=== PATIENT | male | born 1960 | race Caucasian/White ===

== ENCOUNTER 2020-12-30 16:36 | Inpatient (IN) | payer OTHER ==
[~2020-12-30] VITALS: Ht 175.3 cm; Wt 70.8 kg
[2020-12-30 22:00] VITALS: BP 151/94
[2020-12-30] MEDS ORDERED: VITMTA PO (22:30)
[2020-12-30] MEDS ORDERED: ONDANSETRON 4MG/2ML VIAL IV PRN (22:30)
[2020-12-30] MEDS ORDERED: HOME MED LIST COMPLETE! XX SCH (22:30)
[2020-12-30] MEDS ORDERED: ACETAMINOPHEN TAB 650MG DOSE (2X325MG) PO PRN (22:30)
[2020-12-30] MEDS ORDERED: MORPHINE 2 MG/ML 1ML VIAL (J2270) IV PRN (22:30)
[2020-12-30] MEDS: LR 1,000 ML IV SCH (23:33)
[2020-12-31] MEDS ORDERED: MORPHINE 2 MG/ML 1ML VIAL (J2270) IV ONE (00:15)
--- NOTE | 2020-12-31 00:41 | HPEPDOC ---
General Date of Admission Dec 30, 2020 at 21:22 Date of Service: Dec 30, 2020 Chief Complaint The patient is a 60-year-old male admitted with a reason for visit of Perforated Sigmoid Colon. Source: Patient History of Present Illness Osvaldo Bello is a 60yoM with no reported significant medical hx, other than tobacco use, who presents with abdominal pain x 1 day. Patient reports that he has been at baseline until today around noon when he experienced sudden severe abdominal pain that "knocked him down" and he became diaphoretic and pale. He went to [facility] and underwent CT abdomen pelvis and found to have diverticulitis with concerns for fluid collection and perforation. He arrives for higher level of care for surgical recommendations. Patient reports that he did not know he had diverticulosis. He denies any abdominal pain in past. In hindsight, he does endorse some diarrhea for the past month. Pt denies randle, sinus congestion, sore throat, productive cough, sob, palpitations, chest pain, n/v, weakness, sensory changes or syncope. He describes pain as sharp, shooting and severe. He reports improvement with morphine and fentanyl. During exam he reports pain 8 out of 10 and worse on left lower quadrant. He does endorse abdominal tenderness worse with palpation. He reports he has not attempted to eat anything since the pain started. Last BM midday loose. Of note, CT abdomen pelvis with 4 cm fluid collection of the mesentery; surgical recommendations for antibiotics and IR draining. Patient without leukocytosis or lactic acidosis from chart review prior to admission. He is afebrile normotensive. Follow-up labs to be drawn. Patient will be admitted for further evaluation management of presenting concerns. Home Medications Scheduled Multivitamins (Thera M Plus Tablet) 1 Each Tablet, 1 TAB PO QHS, (Reported) Allergies Coded Allergies: No Known Allergies (Verified Allergy, Unknown, 12/30/20) Past Medical History Medical History 1 pack/day smoker Surgical History Reattach tendon right hand Family History Significant Family History: Cancer, Heart disease Grandmotherheart disease, unclepancreatitis, grandfatherpancreatitis, mother- cancer Social History * Smoker: current smoker (1 pack/day) Alcohol: other (Endorses 1-2 mixed drinks nightly vodka drinks) Drugs: denies Recent Travel/Sick Contacts: Denies: Recent travel, Recent sick contacts Psychosocial History: No pertinent psych hx A-FIB/CHADSVASC A-FIB History Current/History of A-Fib/PAF?: No Current PO Anticoag Therapy: No Review of Systems Constitutional: Reports: Other (Diaphoresis); Denies: Chills, Fever, Night Sweats Eyes: Denies: Pain, Vision change ENT: Denies: Head Aches, Ear Pain, Dysphagia Skin: Denies: Rash, Lesions, Breakdown Pulmonary: Denies: Dyspnea, Cough Cardiovascular: Denies: Chest Pain, Palpitations, Orthopnea, Paroxysmal Noc. Dyspnea, Lt Headedness Gastrointestinal: Reports: Abdominal Pain, Diarrhea; Denies: Nausea, Vomiting Genitourinary: Denies: Dysuria, Frequency, Incontinence, Retention Hematologic: Denies: Bruising, Bleeding Excessively Musculoskeletal: Denies: Neck Pain, Back Pain, Joint Pain, Muscle Pain, Spasms Neurological: Denies: Weakness, Numbness, Change in speech, Confusion Psych: Reports: Mood Normal; Denies: Depression, Memory Issues Physical Examination General Exam: Positive: Alert, Cooperative, No Acute Distress Eye Exam: Positive: PERRLA, Conjunctiva & lids normal, EOMI; Negative: Sclera icteric ENT Exam: Positive: Atraumatic, Mucous membr. moist/pink, Pharynx Normal Neck Exam: Positive: Supple; Negative: JVD, thyromegaly Chest Exam: Positive: Clear to auscultation, Normal air movement Heart Exam: Positive: Rate Normal, Regular Rhythm, Normal S1, Normal S2; Negative: Murmurs, Rubs Telemetry: Positive: No significant arrhythmia Abdomen Exam: Positive: BS Hyperactive, Soft, Tenderness (Left lower quadrant tenderness greater than generalized tenderness); Negative: Hepatospenomegaly Extremity Exam: Positive: Normal pulses; Negative: Clubbing, Cyanosis, Edema Skin Exam: Positive: Nl turgor and temperature, Other skin issue (Franco appearance face and chest); Negative: Breakdown, Lesion Neuro Exam: Positive: Normal Gait, Normal Speech, Cranial Nerves 3-12 NL, Reflexes 2+ Psych Exam: Positive: Mental status NL, Mood NL, Oriented x 3 Vital Signs 151/94, respiratory rate 16, heart rate 90, 98.5 Fahrenheit, 94% RA RAD Interpretation STUDY: CT abdomen pelvis Rad Actions: Report Reviewed Assessment/Plan 1. Diverticulitis with abscess: -Monitor for worsening signs symptoms of infection -Empiric coverage with meropenem -IV hydration with consideration of fluid balance, LR at 75 -N.p.o. for IR drainage in a.m. -Symptom management/supportive care with antiemetics and analgesics. -A.m. lab -Appreciate surgical recommendations *Of note, patient is a smoker and noted to have SPO2 92% during assessment without any URI complaints and clear to auscultation, [id number]; could be related to pain medications versus probe. Monitor and consider need for oxygen pending patient response. 2. EtOH use: Patient endorsed nightly EtOH. Monitor for signs symptoms of withdrawal. Consider scheduling pending patient response/need. With the analgesic use with above will begin with as needed Ativan with parameters to monitor patient response. 3. Tobacco use: Encourage cessation. Patient declined nicotine patch. DVT prophylaxis: Christine score 1, SCDs and early ambulation encouraged CODE STATUS: Full code Disposition planning: Home pending clinical improvement. Anticipate at least 2 midnight stay. Plan / VTE VTE Prophylaxis Ordered?: Yes LAMAR BELTRÁN NP Dec 30, 2020 22:36
[2020-12-31] MEDS ORDERED: LORazepam 2 MG/ML VIAL IV PRN (01:00)
[2020-12-31] MEDS: MEROPENEM INJ 1 GM in IV 1 EA IV SCH ×3 (01:41→17:42)
[2020-12-31 02:00] VITALS: BP 148/94
[2020-12-31 04:57] LABS: MEAN CORPUSCULAR HEMOGLOBIN 33.1 pg (27.0-33.0); MEAN CORPUSCULAR HGB CONC 33.3 g/dl (32.0-36.5); MEAN CORPUSCULAR VOLUME 99.3 fl (80.0-96.0); PLATELET COUNT, AUTOMATED 113 10^3/uL (150-450); RED BLOOD COUNT 4.53 10^6/uL (4.30-6.10); WHITE BLOOD COUNT 6.6 10^3/uL (4.0-10.0)
[2020-12-31 05:18] LABS: BLOOD UREA NITROGEN 13 MG/DL (7-18); CALCIUM LEVEL 9.1 MG/DL (8.5-10.1); CARBON DIOXIDE LEVEL 28 MEQ/L (21-32); CHLORIDE LEVEL 102 MEQ/L (98-107); CREATININE FOR GFR 0.79 MG/DL (0.70-1.30); GLOMERULAR FILTRATION RATE > 60.0 (>56); GLUCOSE, FASTING 125 MG/DL (70-100); POTASSIUM SERUM 4.4 MEQ/L (3.5-5.1); SODIUM LEVEL 136 MEQ/L (136-145)
[2020-12-31 05:26] LABS: LYMPHOCYTES 12 % (16-44); METAMYELOCYTES 7 % (0-0); MONOCYTES 3 % (0-5); NEUTROPHILS 74 % (28-66); PLATELET ESTIMATE DECREASED (NORMAL)
[2020-12-31 06:00] VITALS: BP 160/98
--- NOTE | 2020-12-31 09:05 | CR ---
CONSULTATION DATE: 12/30/2020 REASON FOR CONSULTATION: Perforated diverticulitis. HISTORY OF PRESENT ILLNESS: The patient is a 60-year-old male who presented to [facility] with a sudden onset of left lower quadrant abdominal pain that happened around noon. He went to [facility], had a CT scan, found to have diverticulitis with perforation and fluid collection in the mesentery. He was transferred here for a surgical consult. He has no known history of diverticulosis. He has never had any problems like this in the past. No problems with his colon or prior colonoscopy. Denies any significant medical problems. No prior surgery to the abdomen. No changes in diet or medications recently. No complaints other than the pain. PAST MEDICAL HISTORY: Tobacco abuse. PAST SURGICAL HISTORY: Right hand surgery. ALLERGIES: None. HOME MEDICATIONS: Multivitamins. SOCIAL HISTORY: He smokes a pack a day. Drinks daily. Denies drug abuse. FAMILY HISTORY: Noncontributory. REVIEW OF SYSTEMS: Pertinent positives and negatives as stated in the HPI. PHYSICAL EXAMINATION: General: Alert and oriented x3, in no acute distress. Vitals: Temperature 98.5, pulse 90, respirations 16, blood pressure 151/94, pulse oximetry 94% on room air. HEENT: Pupils equally round and reactive to light and accommodation. Heart: S1 and S2, regular rate and rhythm. Lungs are clear to auscultation bilaterally. Abdomen is soft, tender to palpation in the left lower quadrant into the suprapubic area. No rebound or guarding. No rigidity. Extremities: No cyanosis, clubbing or edema. LABORATORY DATA: Labs were all completed at [facility]. They were all stated to be within normal limits. Labs at our facility have not been obtained yet. IMAGING: Imaging from [facility] identified small pockets of air and fluid collection in the mesentery of the sigmoid colon with wall thickening in the area suggestive of a likely contained perforation of diverticulitis. ASSESSMENT AND PLAN: Patient is a 60-year-old male with complicated diverticulitis with mesenteric abscess. He has a non-peritoneal abdomen at this time. Labs and vitals are stable. Recommendation is to continue with conservative management. He is IV fluids and IV antibiotics, keep him NPO for now. Plan for IR drainage in the morning. Once the drain is in place we will monitor his output, start him back on a diet and likely discharge home over the next 48 hours with the drain in place and he will follow-up in the office to get that removed next week and then will plan for an outpatient colonoscopy in about six weeks.
--- NOTE | 2020-12-31 09:11 | IPNPDOC ---
Text Note Date of Service The patient was seen on 12/31/20. NOTE General surgery. Dr. Freed The patient is a 60-year-old male admitted with diverticulitis with abscess. This morning, the patient states his pain has resolved. Denies nausea or vomiting. Plan for CT-guided percutaneous drain placement today. Afebrile. Heart rate 84, respiratory rate 18, blood pressure 160/98, 91% room air. Awake and alert, resting comfortably in bed, no acute distress. S1-S2 regular rate rhythm Respirations are nonlabored, no wheezing Abdomen is soft, nondistended. WBC 6.6, hemoglobin 15.0. Lactic acid 1.3 Assessment/plan Diverticulitis with abscess. The patient is reviewed and examined as per Dr. Freed this morning. Continue with IV fluids and IV antibiotics as per hospitalist. Plan for CT-guided percutaneous drain placement as per interventional radiology today. The patient verbalizes understanding and agreement. Continue to monitor VS,Fishbone, I+O VS, Fishbone, I+O Laboratory Tests 12/31/20 04:25 Vital Signs Date Time Temp Pulse Resp B/P (MAP) Pulse Ox O2 Delivery O2 Flow Rate FiO2 12/31/20 06:00 84 160/98 12/31/20 06:00 98.9 18 91 Room Air I&O- Last 24 Hours up to 6 AM 12/31/20 05:59 Intake Total 70 ml Output Total 0 ml Balance 70 ml Matilde Trivedi Dec 31, 2020 09:11
[2020-12-31] MEDS: MORPHINE 2 MG/ML 1ML VIAL (J2270) IV PRN ×3 (09:29→20:34)
[2020-12-31 10:00] VITALS: BP 150/90
--- NOTE | 2020-12-31 10:47 | IPN ---
PROGRESS NOTE DATE: 12/31/2020 SUBJECTIVE: Patient denies any fever overnight, complains of chills. Abdominal pain is improved today. Patient had 2 episodes of non-projectile, non-blood emesis this morning. OBJECTIVE: Vital signs: Temperature 98.9, pulse 84, respiratory rate 18, blood pressure 144/92, 91% on room air. General: Awake, alert, oriented to person, place and time, answering questions appropriately. HEENT: Dry mucous membranes. Neck: No JVD, thyromegaly, cervical lymphadenopathy or stridor. Lungs: Clear to auscultation, no wheezes, rhonchi or rales. Heart: S1 and S2 sinus rhythm. Abdomen: Soft, slightly tender in left lower quadrant, no guarding or rebound. Positive bowel sounds. Extremities: No cyanosis, clubbing or pitting edema. LABORATORY DATA: 12/31/2020: White count 6.6, hemoglobin 15, hematocrit 45, platelet count 113. Sodium 136, potassium 4.4, chloride 102, bicarbonate 28, BUN 13, creatinine 0.79, glucose 125. Lactic acid 1.3. ASSESSMENT: This is a 60-year-old male seen at [facility] with complaints of abdominal pain for 1 day, feeling like it "knocked him down" with diaphoresis and pallor. Patient was found to have a perforated sigmoid colon with diverticulitis, concerns for fluid collection and was transferred to [facility] for surgical services. Patient received intravenous fluids and intravenous Zosyn at [facility], was transferred and was started on meropenem 1 gram I.V. q8h and lactated Ringer's, hypoglycemic protocol. IMPRESSIONS/PLAN: Perforated diverticulitis: Doing well on intravenous meropenem, afebrile with no abdominal pain. He is n.p.o. for IR drain. Once the drain is placed output will be monitored for 24 hours then patient may be resumed back on an oral diet and discharged home over the next 48 hours. He is on hypoglycemic protocol and I.V. fluids.
[2020-12-31] MEDS ORDERED: FLUBLOK(EGG FREE)(QUAD)INFLUENZA VACC 0.5ML SYRINGE 18YRS & OLDER IM ONE (11:00)
[2020-12-31 14:00] VITALS: BP 145/72
[2020-12-31] MEDS: LR 1,000 ML IV SCH (16:08)
[2020-12-31] MEDS: NICOTINE POLACRILEX 2 MG GUM PO PRN (17:57)
[2020-12-31 18:00] VITALS: BP 136/65
[2020-12-31] MEDS: MULTIVITAMINS/MINERALS THERAP 1 TAB PO SCH (20:34)
[2020-12-31 22:00] VITALS: BP 145/89
[2021-01-01] VITALS (7 sets, daily range): BP systolic 141–160; BP diastolic 88–100
[2021-01-01] MEDS: LR 1,000 ML IV SCH (02:54)
[2021-01-01] MEDS: MEROPENEM INJ 1 GM in IV 1 EA IV SCH ×3 (02:54→17:36)
[2021-01-01 06:08] LABS: HEMATOCRIT 40.1 % (42.0-52.0); HEMOGLOBIN 13.5 g/dl (13.5-17.5); MEAN CORPUSCULAR HEMOGLOBIN 32.8 pg (27.0-33.0); MEAN CORPUSCULAR HGB CONC 33.7 g/dl (32.0-36.5); MEAN CORPUSCULAR VOLUME 97.3 fl (80.0-96.0); PLATELET COUNT, AUTOMATED 109 10^3/uL (150-450); RED BLOOD COUNT 4.12 10^6/uL (4.30-6.10); WHITE BLOOD COUNT 5.4 10^3/uL (4.0-10.0)
[2021-01-01 06:30] LABS: BLOOD UREA NITROGEN 11 MG/DL (7-18); CALCIUM LEVEL 9.2 MG/DL (8.5-10.1); CARBON DIOXIDE LEVEL 28 MEQ/L (21-32); CHLORIDE LEVEL 96 MEQ/L (98-107); CREATININE FOR GFR 0.62 MG/DL (0.70-1.30); GLOMERULAR FILTRATION RATE > 60.0 (>56); GLUCOSE, FASTING 109 MG/DL (70-100); SODIUM LEVEL 131 MEQ/L (136-145)
[2021-01-01 08:10] LABS: ATYPICAL LYMPH 9 % (0-5); LYMPHOCYTES 9 % (16-44); METAMYELOCYTES 1 % (0-0); MONOCYTES 4 % (0-5); NEUTROPHILS 38 % (28-66); PLATELET CLUMPS SMALL AMT; PLATELET ESTIMATE DECREASED (NORMAL)
[2021-01-01] MEDS: NICOTINE POLACRILEX 2 MG GUM PO PRN ×2 (08:37→21:13)
[2021-01-01] MEDS: NICOTINE 14 MG/24 HR TRANSDERMAL TD SCH (08:38)
--- NOTE | 2021-01-01 10:41 | IPN ---
PROGRESS NOTE DATE: 01/01/2021 SUBJECTIVE: Patient denies any fever or chills, abdominal pain. He is tolerating his liquid diet. Patient said that he had 2 episodes of nausea and vomiting yesterday, none this morning. He is chewing gum, passing gas this morning and has no pain. OBJECTIVE: Vital signs: Temperature 98.4, pulse 80, respiratory rate 19, blood pressure 146/88, 98% on room air. General: Awake, alert, oriented to person, place and time, no cyanosis or distress. Lungs: Clear to auscultation, no wheezes, rhonchi or rales. Heart: S1 and S2 sinus rhythm. Abdomen: Doughy with slight distention, no guarding or rebound. Left lower quadrant tenderness on deep palpation. No CVA tenderness. Extremities: No cyanosis, clubbing or pitting edema. LABORATORY DATA/IMAGING STUDIES: Have been reviewed. ASSESSMENT: 60-year-old male transferred from [facility], admitted on 12/30/2020 with complaints of abdominal pain and found to have a perforated diverticulitis, on I.V. antibiotics. IMPRESSIONS/PLAN: 1. Complicated diverticulitis with perforation and abscess: Currently on I.V. meropenem. Per surgery continue with I.V. antibiotics for now, intravenous fluids, advance on a liquid diet. Interventional radiology to put a drain in. Once the drain is placed continue to monitor and advanced diet over the next 48 hours. Follow in the office as an outpatient for a colonoscopy. Patient has been afebrile with normal white count. Defer to surgery today to determine if patient's diet can be advanced. 2. Nicotine abuse: Currently on nicotine replacement. Tobacco cessation counseling has been provided. AKIN
[2021-01-01] MEDS ORDERED: SENOKOT S TAB PO PRN (11:15)
[2021-01-01] MEDS ORDERED: MOM 30ML SUSPENSION UDC PO PRN (11:15)
--- NOTE | 2021-01-01 12:45 | IPNPDOC ---
Text Note Date of Service The patient was seen on 01/01/21. NOTE Patient admitted yesterday for acute perforated diverticulitis presumably within the abscess. His CT scan was done at [facility] where he presented evening and subsequently transferred to us. He presumably was scheduled for percutaneous drainage of the fluid collection but some of this has been canceled. Not clear whether further review of the CAT scan that was done at [facility] did not show any distinct fluid collection. Patient reports he is feeling markedly better than when his pain started afternoon reporting a pain barely there. He denies any nausea or vomiting. He reports he is passing flatus and has had loose stools. Exam Looks quite comfortable Abdomen still is mildly distended, slightly rounded mildly tympanic. He has no prior surgical incisions. He is very minimally tender only on deep palpation over the left lower quadrant area without any rebound or guarding. Impression and plan Acute diverticulitis with localized perforation, questionable abscess He has been started on clear liquids. I will continue this for today. I will have him repeat a CT abdomen pelvis in the morning which could guide us in whether he needs percutaneous drainage or other adjuncts. Given his clinical exam, most likely will not need any emergent surgery. He has no prior colonoscopy so I told him that he will need interval colonoscopy. VS,Fishbone, I+O VS, Fishbone, I+O Laboratory Tests 01/01/21 05:31 Vital Signs Date Time Temp Pulse Resp B/P (MAP) Pulse Ox O2 Delivery O2 Flow Rate FiO2 01/01/21 10:00 97.6 101 20 147/90 (109) 95 Room Air I&O- Last 24 Hours up to 6 AM 01/01/21 05:59 Intake Total 1982.5 ml Output Total 0 ml Balance 1982.5 ml RHINA LEDESMA MD Jan 01, 2021 12:45
[2021-01-01] MEDS ORDERED: MORPHINE 30 MG TAB **MSIR PO ONE (14:40)
[2021-01-01] MEDS ORDERED: atenoloL 25 MG TAB PO ONE (14:40)
[2021-01-01] MEDS: MORPHINE 2 MG/ML 1ML VIAL (J2270) IV PRN (17:56)
[2021-01-01] MEDS: MULTIVITAMINS/MINERALS THERAP 1 TAB PO SCH (20:19)
[2021-01-01] MEDS ORDERED: LORazepam 2 MG TAB PO PRN (21:10)
--- NOTE | 2021-01-01 21:11 | IPNPDOC ---
Text Note Date of Service Significant event NOTE Notified patient with affect change. He is somewhat delirious in conversation but can be redirected or reoriented. No focal deficits. He is mildly tachycardic and hypertensive. He is a reported 1-2 night vodka EtOH use prior to admission. Additionally, patient did not sleep well the night before. In the setting of fatigue, infection, possible developing hospital delirium and pain medicine use as possible developing withdrawal symptoms- all could be affecting his perception/ behavior. Will place on CIWA protocol and continue to monitor. VS,Fishbone, I+O VS, Fishbone, I+O Laboratory Tests 01/01/21 05:31 Vital Signs Date Time Temp Pulse Resp B/P (MAP) Pulse Ox O2 Delivery O2 Flow Rate FiO2 01/01/21 18:06 20 01/01/21 18:00 100.1 101 160/90 (113) 93 Room Air I&O- Last 24 Hours up to 6 AM 01/01/21 06:00 Intake Total 1570 ml Output Total 0 ml Balance 1570 ml LAMAR BELTRÁN NP Jan 01, 2021 21:11
[2021-01-01] MEDS ORDERED: RAMELTEON 8 MG TAB (ROZEREM) PO PRN (21:15)
[2021-01-01] MEDS: THIAMINE 100 MG TAB PO SCH (21:29)
[2021-01-01] MEDS ORDERED: LORazepam 2 MG/ML VIAL IV STA (22:00)
[2021-01-01] MEDS ORDERED: LORazepam 0.5 MG TAB PO ONE (22:55)
[2021-01-02] VITALS (8 sets, daily range): BP systolic 128–148; BP diastolic 68–93
[2021-01-02] MEDS: MEROPENEM INJ 1 GM in IV 1 EA IV SCH ×3 (02:18→18:14)
[2021-01-02] MEDS ORDERED: ISOVUE-370 76% 100ML VIAL As Ordered ONE (05:50)
[2021-01-02] MEDS: GASTROGRAFIN SOLUTION 30ML PO SCH ×2 (06:00→06:30)
[2021-01-02 06:53] LABS: HEMATOCRIT 39.4 % (42.0-52.0); HEMOGLOBIN 13.6 g/dl (13.5-17.5); MEAN CORPUSCULAR HEMOGLOBIN 33.3 pg (27.0-33.0); MEAN CORPUSCULAR HGB CONC 34.5 g/dl (32.0-36.5); MEAN CORPUSCULAR VOLUME 96.3 fl (80.0-96.0); PLATELET COUNT, AUTOMATED 142 10^3/uL (150-450); RED BLOOD COUNT 4.09 10^6/uL (4.30-6.10); WHITE BLOOD COUNT 7.5 10^3/uL (4.0-10.0)
[2021-01-02 07:27] LABS: BLOOD UREA NITROGEN 13 MG/DL (7-18); CALCIUM LEVEL 9.2 MG/DL (8.5-10.1); CARBON DIOXIDE LEVEL 30 MEQ/L (21-32); CHLORIDE LEVEL 93 MEQ/L (98-107); CREATININE FOR GFR 0.68 MG/DL (0.70-1.30); GLOMERULAR FILTRATION RATE > 60.0 (>56); GLUCOSE, FASTING 110 MG/DL (70-100); POTASSIUM SERUM 4.1 MEQ/L (3.5-5.1); SODIUM LEVEL 130 MEQ/L (136-145)
[2021-01-02] MEDS: NICOTINE 14 MG/24 HR TRANSDERMAL TD SCH (07:51)
[2021-01-02] MEDS: NICOTINE POLACRILEX 2 MG GUM PO PRN ×3 (07:51→22:26)
[2021-01-02] MEDS: THIAMINE 100 MG TAB PO SCH (08:01)
--- NOTE | 2021-01-02 08:03 | REPVR ---
PROCEDURE INFORMATION: Exam: CT Abdomen And Pelvis With Contrast Exam date and time: 01/02/2021 7:42 AM Age: 60 years old Clinical indication: Condition or disease; Other: Diverticulitar abscess w perforated sigmoid colon TECHNIQUE: Imaging protocol: Computed tomography of the abdomen and pelvis with contrast. Radiation optimization: All CT scans at this facility use at least one of these dose optimization techniques: automated exposure control; mA and/or kV adjustment per patient size (includes targeted exams where dose is matched to clinical indication); or iterative reconstruction. Contrast material: ISOVUE 370; Contrast volume: 100 ml; Contrast route: INTRAVENOUS (IV); COMPARISON: CT ABD/PELVIS W/O CONTRAST - OUTSIDE PRIOR 12/30/2020 3:46 PM FINDINGS: Lungs: Emphysema within the imaged lower lungs. Bilateral atelectasis. Trachea and bronchial secretions. Liver: Hepatic steatosis with multiple areas of geographic steatosis versus small cysts. Gallbladder and bile ducts: No calcified stones. No ductal dilation. Pancreas: No ductal dilation. Spleen: No splenomegaly. Adrenal glands: No mass. Kidneys and ureters: Several simple renal cysts are present. Stomach and bowel: Proximal small bowel obstruction with transition point in the right mid abdomen (axial image 97). Small bowel measures up to 4.7 cm proximally, with multiple fluid levels. Persistent features of complicated sigmoid diverticulitis and sigmoid colitis with regional perforation and an abscess extending superiorly along the retroperitoneum measuring up to 6.3 x 2.7 cm, previously 4.3 x 1.7 cm. Focal thickening of the bowel wall at the transverse colon (image 65) is present. Fluid and gas is present within the colon. Appendix: No evidence of appendicitis. Intraperitoneal space: Small volume free intraperitoneal fluid. Vasculature: Mild aortic and branch vessel atherosclerosis. Lymph nodes: No enlarged lymph nodes. Urinary bladder: Unremarkable as visualized. Reproductive: Unremarkable as visualized. Bones/joints: No acute fracture. Soft tissues: Increased retroperitoneal soft tissue gas. IMPRESSION: 1. Persistent features of sigmoid diverticulitis complicated by perforation and retroperitoneal abscess extending superiorly, with increased size of the abscess and increased retroperitoneal gas extending into the left perirenal space. 2. Development of a proximal small bowel obstruction with transition point in the right mid abdomen. 3. Small volume free intraperitoneal fluid, likely reactive or inflammatory. 4. Focal thickening of bowel wall of the transverse colon, likely peristalsis although would correlate with age-appropriate colon cancer screening as indicated to exclude an underlying lesion. COMMENTS: Consistent with the [employer]'s Incidental Findings Committee white paper (J Am Bel Radiol 2018): Any incidental renal lesion less than 1 cm or classified as too small to characterize, or any incidental cystic renal lesion characterized as simple-appearing, is likely benign. No follow-up imaging is recommended for these lesions per consensus recommendations based on imaging criteria. Electronically signed by: Milton Aguilar On 01/02/2021 08:02:28 AM
[2021-01-02] MEDS ORDERED: LORazepam 2 MG/ML VIAL IV PRN (08:10)
[2021-01-02] MEDS ORDERED: D5W/0.45% SODIUM CHLORIDE 1,000 ML IV SCH (08:10)
[2021-01-02 08:13] LABS: ATYPICAL LYMPH 4 % (0-5); LYMPHOCYTES 14 % (16-44); MONOCYTES 13 % (0-5); NEUTROPHILS 40 % (28-66); PLATELET ESTIMATE DECREASED (NORMAL)
[2021-01-02 08:52] LABS: ERYTHROCYTE SEDIMENTATION RATE 63 mm/hr (0-20)
[2021-01-02] MEDS ORDERED: cloNIDine HCL 0.1 MG/24 HR PATCH TOP SCH (09:00)
[2021-01-02] MEDS ORDERED: FOLIC ACID 1 MG TAB PO SCH (09:00)
[2021-01-02] MEDS ORDERED: atenoloL 25 MG TAB PO SCH (09:00)
[2021-01-02] MEDS ORDERED: LORazepam 2 MG TAB PO PRN ×2 (09:20→10:45)
--- NOTE | 2021-01-02 09:29 | IPN ---
PROGRESS NOTE DATE: 01/02/2021 SUBJECTIVE: The patient according to nursing was hallucinating yesterday and feeling that he had heard some noises above him. He had a temperature of 100.1 without nausea or vomiting, but increasing abdominal distention and a repeat CT showing increased abscess formation. White count is unchanged. He is passing gas this morning. The patient denies any restlessness, anxiety, or tremors. OBJECTIVE: VITAL SIGNS: Temperature 98.1, T-max of 100.1, pulse 83, respiratory rate 17, blood pressure 131/80, 95% on room air. LUNGS: Clear to auscultation. No wheezing, rales, or rhonchi. HEART: S1, S2. Sinus rhythm. ABDOMEN: Soft, distended, and tender. Tympanitic on exam. Tender in the left lower quadrant. No rebound or guarding. No CVA tenderness. EXTREMITIES: No cyanosis or clubbing. LABORATORY DATA/IMAGING STUDIES/MICROBIOLOGY: Have been reviewed. ASSESSMENT: A 60-year-old male with history of alcohol abuse, tobacco abuse, transferred from [facility] complains of abdominal pain found to have a complicated diverticulitis with perforation and abscess on IV meropenem. The patient had worsening symptoms and found to have increased abscess and development of a proximal small bowel obstruction with transition point in the right mid abdomen., IMPRESSION: 1. Complicated sigmoid diverticulitis with perforation and retroperitoneal abscess with increased gas. 2. Partial small bowel obstruction with transition point in the right mid abdomen. 3. Alcohol withdrawal. 4. Tobacco abuse. PLAN: The patient has been changed to n.p.o. status. Banana bag has been given. IV Ativan q.2 for agitation. General surgery has been made aware of the worsening abscess and partial bowel obstruction. Oral medications have been discontinued. Monitor for alcohol withdrawal tremors and seizures.
[2021-01-02] MEDS ORDERED: LORazepam 2 MG/ML VIAL IV STA (10:41)
[2021-01-02] MEDS ORDERED: LORazepam 2 MG/ML VIAL As Ordered ONE (11:21)
[2021-01-02 11:27] LABS: INR 0.84; PROTHROMBIN TIME 11.9 SECONDS (12.7-14.5)
[2021-01-02] MEDS ORDERED: MULTIVITAMIN -ADULT INJECTION 10 ML, THIAMINE INJection 100 MG, FOLIC ACID 1 MG in NS 1... IV ONE (12:00)
--- NOTE | 2021-01-02 12:02 | IPNPDOC ---
Text Note Date of Service The patient was seen on 01/02/21. NOTE Patient seen this morning. Events overnight noted. Is being suspected to be having some alcohol withdrawal although he denies this. He does acknowledge that he drinks 2 shots of vodka daily for long periods of time. Never has had any prior withdrawal symptoms. He thinks it is because he has not slept in 2 days since his symptoms started. He feels good this morning after having a good sleep after he was given a dose of Ativan. He ss ambulating without any increased difficulty. He denies any nausea, minimal burping. He reports having multiple loose bowel movements after the CT scan of the abdomen pelvis where he drank the oral contrast was done. Vitals T-max of 100.1 at 1756 yesterday; the current 98.9 Pulse rate 85 Respiratory rate 18 blood pressure 130/93 Saturation 96% at room air Examination Patient was ambulating in the room when I entered it. He looks comfortable. Does not look to be in any distress. He is awake, alert and oriented. He does not exhibit any extremity tremors and no slurring of speech. Lung sounds are clear to auscultation bilaterally Pulse is regular in rate and rhythm Abdomen is round, still mildly distended though it seems to me it is less distended than it was yesterday. Still tympanic to percussion. He has very minimal discomfort only on deep palpation over the periumbilical area and slightly at the left lower quadrant area. No rebound or guarding. No CVA tenderness. No flank tenderness. The palpation does not elicit any back pains or discomfort. No significant extremity edema Ancillary: I reviewed with him the results of the scan abdomen and pelvis Impression and plan Acute perforated diverticulitis with at least on CT worsening of the air and fluid collection at the retroperitoneum. Clinically he is not showing any severe inflammatory response, no signs of peritonitis. Though certainly is concerning that the air and fluid collection in the retroperitoneum seems avoidant from the initial CT that was done for the evening to the CT that was done early this morning, clinically the getting better. Thus I think he does not need any emergent surgery yet that this point and we could continue to try with IV antibiotics. We could speak to the radiologist tomorrow to see if the retroperitoneal collection is amenable to percutaneous drainage though when I reviewed it this is mostly air and less so fluid. His CRP is above 30 and he should continue to follow this. He has been placed n.p.o. due to the results of the CBC. I am allowing him full liquids. Despite the appearance of bowel obstruction on CT has been having bowel movements and the barium column actually has helped and decompression his abdominal distention. He was able to tolerate clear liquids yesterday. We will place him n.p.o. for tomorrow morning and will need to speak to radiology with regards to possibility of percutaneous drainage of the retroperitoneal abscess. VS,Fishbone, I+O VS, Fishbone, I+O Laboratory Tests 01/02/21 06:20 Vital Signs Date Time Temp Pulse Resp B/P (MAP) Pulse Ox O2 Delivery O2 Flow Rate FiO2 01/02/21 10:33 85 143/90 01/02/21 10:00 98.9 18 96 Room Air I&O- Last 24 Hours up to 6 AM 01/02/21 06:00 Intake Total 1825 ml Balance 1825 ml RHINA LEDESMA MD Jan 02, 2021 12:02
[2021-01-03] VITALS (9 sets, daily range): BP systolic 140–155; BP diastolic 79–95
[2021-01-03] MEDS: MEROPENEM INJ 1 GM in IV 1 EA IV SCH ×3 (01:46→17:23)
[2021-01-03 05:43] LABS: HEMATOCRIT 38.2 % (42.0-52.0); HEMOGLOBIN 13.2 g/dl (13.5-17.5); MEAN CORPUSCULAR HEMOGLOBIN 32.8 pg (27.0-33.0); MEAN CORPUSCULAR HGB CONC 34.6 g/dl (32.0-36.5); MEAN CORPUSCULAR VOLUME 94.8 fl (80.0-96.0); PLATELET COUNT, AUTOMATED 161 10^3/uL (150-450); RED BLOOD COUNT 4.03 10^6/uL (4.30-6.10); WHITE BLOOD COUNT 8.1 10^3/uL (4.0-10.0)
[2021-01-03 05:54] LABS: INR 0.85
[2021-01-03 05:55] LABS: PARTIAL THROMBOPLASTIN TIME 33.4 SECONDS (25.9-37.0)
[2021-01-03 05:58] LABS: BLOOD UREA NITROGEN 17 MG/DL (7-18); CALCIUM LEVEL 8.8 MG/DL (8.5-10.1); CARBON DIOXIDE LEVEL 29 MEQ/L (21-32); CHLORIDE LEVEL 95 MEQ/L (98-107); CREATININE FOR GFR 0.59 MG/DL (0.70-1.30); GLOMERULAR FILTRATION RATE > 60.0 (>56); GLUCOSE, FASTING 117 MG/DL (70-100); POTASSIUM SERUM 3.1 MEQ/L (3.5-5.1); SODIUM LEVEL 133 MEQ/L (136-145)
[2021-01-03 07:41] LABS: LYMPHOCYTES 37 % (16-44); MONOCYTES 2 % (0-5); NEUTROPHILS 55 % (28-66)
[2021-01-03 07:42] LABS: PLATELET ESTIMATE NORMAL (NORMAL)
--- NOTE | 2021-01-03 08:50 | IPNPDOC ---
Text Note Date of Service The patient was seen on 01/03/21. NOTE General surgery. Dr. Ledesma The patient is a 60-year-old male admitted with diverticulitis with abscess. He is up out of bed to the bathroom this morning. States abdominal pain is about the same. Denies nausea or vomiting. No bowel movements documented yesterday. T-max 100.0, 98.5 currently VSS Out of bed to the bathroom. WBC 8.1, hemoglobin 13.2 CRP 14.1 decreased from 30.3 yesterday Assessment/plan Diverticulitis with abscess. The patient is reviewed and examined as per Dr. Ledesma this morning. Continue IV meropenem as per hospitalist. CT imaging with concern for air-fluid collection in the retroperitoneum, Dr. Ledesma to review with radiology to see if retroperitoneal collection is amenable to percutaneous drainage. Was tolerating full liquids, currently n.p.o. for possible IR percutaneous drainage. The patient verbalizes understanding and agreement. Continue to monitor VS,Fishbone, I+O VS, Fishbone, I+O Laboratory Tests 01/03/21 05:12 Vital Signs Date Time Temp Pulse Resp B/P (MAP) Pulse Ox O2 Delivery O2 Flow Rate FiO2 01/03/21 04:00 98.5 62 18 150/84 (106) 95 Room Air I&O- Last 24 Hours up to 6 AM 01/03/21 05:59 Intake Total 2080 ml Output Total 300 ml Balance 1780 ml Attending Note Attending Note The radiologist on review of his CT does not think that the abscess is amenable to percutaneous drainage and he thinks there are 3 fluid in between loops of bowel and no well-defined abscess collection. Overall he seems to be stable though he still has some low-grade fever here and there. He is able to tolerate some liquids, passing small amount of gas also burping some. He does not have much in abdominal discomfort. On examination he does have a distended abdomen but soft. Very mild discomfort on deep palpation over the left lower quadrant and slightly to the right of the umbilicus without any rebound or guarding. No flank tenderness no back tenderness. Labs show no leukocytosis. Also his bandemia has resolved. The CRP was 30 yesterday is gone down to 15 today Impression and plan Acute perforated diverticulitis, retroperitoneal abscess not amenable to percutaneous drainage I had a long discussion with the patient. Overall he is stable, not showing any signs of severe sepsis. His CRP is improving. He does not have peritonitis so I think continued nonoperative therapy is reasonable but I did discuss with him a real possibility for surgery and to be set Sunday which would be at about his sixth hospital day as our maximum arbitrary time to wait for improvement. I would like his fever to resolve as well as continued drop in his CRP. If this happens then we can repeat the CT and probably do not need anything more than continued antibiotics. If he is no better and is not making much progress certainly if he is worse he will need surgery. I discussed with him performing sigmoid colectomy plus or minus a colostomy versus laparoscopic drainage of the abscess. Of course the other problem is the abdominal distention which may not afford us space to perform laparoscopy. I will put him on scheduled doses of MiraLAX for now to try and see if we could" prep" the colon a little bit, put him on some oral antibiotics in anticipation of possible surgery. Matilde Trivedi Jan 03, 2021 08:50 RHINA LEDESMA MD Jan 03, 2021 10:55
[2021-01-03] MEDS: NICOTINE POLACRILEX 2 MG GUM PO PRN ×3 (09:11→22:23)
[2021-01-03] MEDS: NICOTINE 14 MG/24 HR TRANSDERMAL TD SCH (09:11)
[2021-01-03] MEDS ORDERED: POTASSIUM CHLORIDE 10MEQ SR TABLET PO ONE (09:15)
[2021-01-03 10:18] LABS: ERYTHROCYTE SEDIMENTATION RATE 56 mm/hr (0-20)
--- NOTE | 2021-01-03 10:52 | IPNPDOC ---
Date Seen The patient was seen on 01/03/21. Progress Note SUBJECTIVE: Patient had 3 bowel movements yesterday after CT abdomen pelvis was performed. Had a low-grade temp of 100 today. Denies any abdominal pain. RN noted some alcohol withdrawal but Patient denies restlessness anxiety paresthesias nausea vomiting worsening abdominal pain or tremors Refusing to keep his telemetry. Per radiologist, Dr. Hahn, no definable area for drain to be placed Since abscess is diffusely scattered around the bowel. OBJECTIVE: VITAL SIGNS: See below GENERAL: LUNGS: Clear to auscultation. No wheezing, rales, or rhonchi. HEART: S1, S2. Sinus rhythm. ABDOMEN: Much more distended no in appearance Tympanitic on exam. Tender in the left lower quadrant. No rebound or guarding. No CVA tenderness. EXTREMITIES: No cyanosis or clubbing. LABORATORY DATA/IMAGING STUDIES/MICROBIOLOGY: Have been reviewed. ASSESSMENT: A 60-year-old male with history of alcohol abuse, tobacco abuse, transferred from [facility] complains of abdominal pain found to have a complicated diverticulitis with perforation and abscess on IV meropenem. The patient had worsening symptoms and found to have increased abscess and development of a proximal small bowel obstruction with transition point in the right mid abdomen., IMPRESSION: 1. Complicated sigmoid diverticulitis with perforation and retroperitoneal abscess with increased gas. 2. Partial small bowel obstruction with transition point in the right mid abdomen., Resolved 3. Alcohol abuse monitor for withdrawal 4. Tobacco abuse. PLAN: Drain could not be placed per radiology since the abscess is diffuse. Due to persistent low-grade temperature vancomycin has been added for possible Enterococcus Meropenem continued to cover anaerobic and gram-negative infection. Medically stable for medical surgical floor discontinue telemetry [facility] protocol for alcohol withdrawal precautions VS, I&O, 24H, [facility] Vital Signs/I&O Vital Signs Date Time Temp Pulse Resp B/P (MAP) Pulse Ox O2 Delivery O2 Flow Rate FiO2 01/03/21 08:00 81 152/90 01/03/21 08:00 98.6 18 98 Room Air I&O- Last 24 Hours up to 6 AM 01/03/21 05:59 Intake Total 2080 ml Output Total 300 ml Balance 1780 ml Laboratory Data 24H LABS Laboratory Tests 2 01/02/21 11:02: Prothrombin Time 11.9, Prothromb Time International Ratio 0.84 01/03/21 05:10: 01/03/21 05:12: Prothrombin Time 12.0, Prothromb Time International Ratio 0.85, Neutrophils (%) (Auto) , Nucleated Red Blood Cells % (auto) 0.0, Neutrophils 55, Band Neutrophils 6, Lymphocytes (Manual) 37, Monocytes (Manual) 2, Platelet Estimate NORMAL, Erythrocyte Sedimentation Rate 56H, Activated Partial Thromboplast Time 33.4, Anion Gap 9, Glomerular Filtration Rate > 60.0, Calcium Level 8.8, C-R eactive Protein, Quantitative 14.10H CBC/BMP Laboratory Tests 01/03/21 05:12 ALMA CRUZ MD Jan 03, 2021 10:51
[2021-01-03] MEDS ORDERED: VANCOMYCIN HCL 1,000 MG, VIAL MATE ADAPTER 1 EACH in NS 250 ML IV ONE ×2 (11:00→12:00)
[2021-01-03] MEDS: MIRALAX *UNIT DOSE* 17GM PACKET PO SCH ×2 (11:51→21:08)
[2021-01-03] MEDS: metroNIDAZOLE (FLAGYL) 500MG TABLET PO SCH ×2 (13:13→21:08)
[2021-01-03] MEDS: NEOMYCIN SULFATE 500 MG TAB PO SCH ×2 (16:01→21:08)
[2021-01-03] MEDS: VANCOMYCIN HCL 1,000 MG, VIAL MATE ADAPTER 1 EACH in NS 250 ML IV SCH (21:08)
[2021-01-03] MEDS: VANCOMYCIN HCL 500 MG in D5W MINI-BAG PLUS 100 ML IV SCH (22:23)
[2021-01-04 02:00] VITALS: BP 138/81
[2021-01-04] MEDS: MEROPENEM INJ 1 GM in IV 1 EA IV SCH ×3 (02:37→17:56)
[2021-01-04] MEDS: metroNIDAZOLE (FLAGYL) 500MG TABLET PO SCH ×3 (05:32→21:11)
[2021-01-04 06:00] VITALS: BP 141/85
[2021-01-04 07:30] VITALS: BP 149/95
--- NOTE | 2021-01-04 08:55 | IPNPDOC ---
Text Note Date of Service The patient was seen on 01/04/21. NOTE General surgery. Dr. Rashid The patient is a 60-year-old male admitted with diverticulitis with abscess. States abdominal pain is about the same. Denies nausea or vomiting. BM x 1 yesterday. Afebrile. Heart rate 79, respiratory rate 18, blood pressure 149/95, 95% room air. Awake and alert, resting comfortably, no acute distress MMM Lungs clear to auscultation S1-S2 regular rate rhythm Abdomen still with distention, about the same as yesterday, tenderness with palpation left lower quadrant but no guarding or rebound. Labs are pending this morning. Assessment/plan Diverticulitis with abscess. The patient is reviewed and examined as per Dr. Rashid this morning. Currently IV vancomycin/meropenem. Neomycin and Flagyl p.o. Drain was not able to be placed as per radiology yesterday, no definable area for the drain to be placed was noted since the abscess was diffusely scattered around the bowel. Currently full liquids. Labs are pending this morning, CBC and CRP Continue to closely monitor, monitor need for surgical intervention. VS,Fishbone, I+O VS, Fishbone, I+O Vital Signs Date Time Temp Pulse Resp B/P (MAP) Pulse Ox O2 Delivery O2 Flow Rate FiO2 01/04/21 07:30 98.1 79 149/95 (113) 95 Room Air 01/04/21 06:00 18 I&O- Last 24 Hours up to 6 AM 01/04/21 05:59 Intake Total 2150 ml Balance 2150 ml Matilde Trivedi Jan 04, 2021 08:55
[2021-01-04] MEDS: MIRALAX *UNIT DOSE* 17GM PACKET PO SCH ×2 (09:32→21:11)
[2021-01-04] MEDS: NICOTINE 14 MG/24 HR TRANSDERMAL TD SCH (09:32)
[2021-01-04] MEDS: NEOMYCIN SULFATE 500 MG TAB PO SCH ×3 (09:33→21:11)
[2021-01-04 09:43] LABS: BASO # 0.1 10^3/uL (0.0-0.2); BASO % 0.5 % (0.0-1.0); EOS # 0.1 10^3/uL (0.0-0.5); EOS % 0.5 % (0.0-3.0); HEMATOCRIT 40.9 % (42.0-52.0); LYMPH # 0.9 10^3/uL (1.5-5.0); LYMPH % 8.3 % (24.0-44.0); MEAN CORPUSCULAR HEMOGLOBIN 32.9 pg (27.0-33.0); MEAN CORPUSCULAR HGB CONC 34.2 g/dl (32.0-36.5); MEAN CORPUSCULAR VOLUME 96.2 fl (80.0-96.0); MONO % 24.5 % (2.0-8.0); NEUTROPHILS # 6.9 10^3/uL (1.5-8.5); NEUTROPHILS % 64.4 % (36.0-66.0); PLATELET COUNT, AUTOMATED 269 10^3/uL (150-450); RED BLOOD COUNT 4.25 10^6/uL (4.30-6.10); WHITE BLOOD COUNT 10.7 10^3/uL (4.0-10.0)
[2021-01-04 10:04] LABS: BLOOD UREA NITROGEN 10 MG/DL (7-18); C REACTIVE PROTEIN QUANTITATIV 6.88 MG/DL (0.00-0.30); CALCIUM LEVEL 8.2 MG/DL (8.5-10.1); CARBON DIOXIDE LEVEL 28 MEQ/L (21-32); CHLORIDE LEVEL 99 MEQ/L (98-107); CREATININE FOR GFR 0.64 MG/DL (0.70-1.30); GLOMERULAR FILTRATION RATE > 60.0 (>56); GLUCOSE, FASTING 123 MG/DL (70-100); POTASSIUM SERUM 3.1 MEQ/L (3.5-5.1); SODIUM LEVEL 132 MEQ/L (136-145)
[2021-01-04] MEDS: VANCOMYCIN HCL 1,000 MG, VIAL MATE ADAPTER 1 EACH in NS 250 ML IV SCH (10:21)
[2021-01-04 10:29] LABS: MONO # 2.6 10^3/uL (0.0-0.8)
[2021-01-04] MEDS: NICOTINE POLACRILEX 2 MG GUM PO PRN (10:53)
[2021-01-04] MEDS: VANCOMYCIN HCL 500 MG in D5W MINI-BAG PLUS 100 ML IV SCH (11:28)
--- NOTE | 2021-01-04 11:53 | IPN ---
PROGRESS NOTE DATE: 01/04/2021 SUBJECTIVE: Patient denies nausea, vomiting. He is tolerating his liquid diet. No abdominal pain. No fever or chills overnight. Blood pressure is well maintained. Denies any tremors, restlessness, agitation. Patient is a little bit irritable that he is in the hospital and says "I can't see my . I can't do anything. I can't get out of this room." Patient refused telemetry yesterday when he was in the PCU Unit otherwise clinically he denies any chest pain, pressure or tightness. He has a slight cough productive of white sputum otherwise no palpitations, lightheadedness or dizziness. OBJECTIVE: Vital signs: Temperature 98.1, pulse 79, respiratory rate 18, blood pressure 149/95, 95% on room air. General: Awake, alert, oriented, speaks in full sentences. HEENT: Anicteric, no jaundice. Neck: No JVD, no thyromegaly. Lungs: Clear to auscultation, no wheezing or rales. Heart: S1 and S2 sinus rhythm. Abdomen: Soft, less distended, less tympanitic, tender in left lower quadrant, no guarding or rebound, no CVA tenderness. Extremities: No cyanosis, clubbing or pitting edema. LABORATORY DATA/IMAGING STUDIES/MICROBIOLOGY: Have been reviewed. ASSESSMENT: 60-year-old male with history of alcohol abuse, tobacco abuse transferred from [facility] after being found to have a complicated diverticulitis with perforation and abscess. Given I.V. Zosyn, admitted to [facility] with a general surgical consult, started on Zosyn. Patient had spike in temperature and was given vancomycin. He has a history of alcohol abuse and tobacco abuse currently with nicotine replacement therapy as well as [facility] protocol. IMPRESSIONS: 1. Complicated acute sigmoid diverticulitis with perforation and retroperitoneal abscess with increased gas. 2. Partial small bowel obstruction with transition point in the right mid abdomen: Resolved. 3. Alcohol abuse: Monitoring for withdrawal. 4. Active tobacco abuse: Currently on nicotine replacement. PLAN: Drain could not be placed by radiology Dr. Hahn because the abscess was diffuse therefore surgery is planning for OR on Sunday if patient continues to worsen; however, empiric antibiotics seem to be working as he has been afebrile and there is no worsening pain. Lab work shows normal white count. Defer to surgery if patient can be transitioned to oral antibiotics in the next 1-2 days if no plans for the OR and whether he can be advanced on his diet tomorrow if everything looks okay. We may need to re-image today to check if the abscess is improving. AKIN
[2021-01-04 14:41] VITALS: BP 148/93
[2021-01-04 22:00] VITALS: BP 151/85
[2021-01-05 02:20] VITALS: BP 145/93
[2021-01-05] MEDS: MEROPENEM INJ 1 GM in IV 1 EA IV SCH ×4 (02:28→17:55)
[2021-01-05 06:00] VITALS: BP 136/87
[2021-01-05 06:29] LABS: BASO # 0.1 10^3/uL (0.0-0.2); BASO % 0.4 % (0.0-1.0); EOS # 0.1 10^3/uL (0.0-0.5); EOS % 0.9 % (0.0-3.0); HEMATOCRIT 38.9 % (42.0-52.0); HEMOGLOBIN 13.4 g/dl (13.5-17.5); LYMPH # 1.2 10^3/uL (1.5-5.0); LYMPH % 9.1 % (24.0-44.0); MEAN CORPUSCULAR HEMOGLOBIN 32.7 pg (27.0-33.0); MEAN CORPUSCULAR HGB CONC 34.4 g/dl (32.0-36.5); MEAN CORPUSCULAR VOLUME 94.9 fl (80.0-96.0); NEUTROPHILS # 8.8 10^3/uL (1.5-8.5); NEUTROPHILS % 65.1 % (36.0-66.0); PLATELET COUNT, AUTOMATED 327 10^3/uL (150-450); WHITE BLOOD COUNT 13.6 10^3/uL (4.0-10.0)
[2021-01-05 06:44] LABS: BLOOD UREA NITROGEN 9 MG/DL (7-18); C REACTIVE PROTEIN QUANTITATIV 7.15 MG/DL (0.00-0.30); CALCIUM LEVEL 8.3 MG/DL (8.5-10.1); CARBON DIOXIDE LEVEL 27 MEQ/L (21-32); CHLORIDE LEVEL 99 MEQ/L (98-107); CREATININE FOR GFR 0.61 MG/DL (0.70-1.30); GLOMERULAR FILTRATION RATE > 60.0 (>56); GLUCOSE, FASTING 100 MG/DL (70-100); POTASSIUM SERUM 3.7 MEQ/L (3.5-5.1); SODIUM LEVEL 134 MEQ/L (136-145)
[2021-01-05] MEDS: GASTROGRAFIN SOLUTION 30ML PO SCH ×2 (07:48→08:18)
--- NOTE | 2021-01-05 08:54 | IPNPDOC ---
Text Note Date of Service The patient was seen on 01/05/21. NOTE General surgery. Dr. Freed The patient is a 60-year-old male admitted with diverticulitis with abscess. Repeat CT abdomen/pelvis with contrast is requested this morning and is pending at this time. The patient has not gone down yet for imaging. Overall, the patient states his abdominal pain is about the same, he still has some mild discomfort in the left lower quadrant. Still has some abdominal distention but it is about the same. Denies nausea or vomiting. Reports having bowel movements last evening, 2 bowel movements were documented, the patient states they were liquid. Afebrile. Heart rate 82, respiratory rate 18, blood pressure 136/87, 96% room air. Awake and alert, resting comfortably, no acute distress MMM Lungs clear to auscultation S1-S2 regular rate rhythm Abdomen still with distention, still about the same, he still has some tenderness with palpation left lower quadrant but no guarding or rebound, no grimacing. Bowel sounds are noted across the upper abdomen. Labs this morning indicate WBC 13.6, hemoglobin 13.4. CRP 7.15 compared with 6.88 yesterday. Assessment/plan Diverticulitis with abscess. The patient is reviewed by Dr. Freed this morning Currently IV meropenem Drain was not able to be placed on 2 attempts, no definable area for the drain to be placed was noted since the abscess was diffusely scattered around the bowel. Currently n.p.o. CT abdomen/pelvis with contrast this morning is pending to further assess need for surgical intervention. Dr. Freed to discuss with the patient further pending review of imaging. The p atient verbalizes understanding and agreement. VS,Fishbone, I+O VS, Fishbone, I+O Laboratory Tests 01/04/21 09:28 01/05/21 06:03 Vital Signs Date Time Temp Pulse Resp B/P (MAP) Pulse Ox O2 Delivery O2 Flow Rate FiO2 01/05/21 06:00 98.3 82 18 136/87 (103) 96 Room Air I&O- Last 24 Hours up to 6 AM 01/05/21 05:59 Intake Total 4060 ml Output Total 0 ml Balance 4060 ml Matilde Trivedi Jan 05, 2021 08:54
[2021-01-05] MEDS ORDERED: ISOVUE-370 76% 100ML VIAL As Ordered ONE (09:27)
--- NOTE | 2021-01-05 10:04 | REP ---
INDICATION: ffup diverticulitis. COMPARISON: 01/02/2021 and 12/30/2020 TECHNIQUE: Standard helical technique after the intravenous administration of 100 cc Isovue 3 7 and oral bowel preparatory contrast administration FINDINGS: The central pelvic abscess has increased in size. Today it measures approximately 7.4 x 5.4 x 6.7 cm previously 7 x 3 x 5.6 cm. Sigmoid colon bowel wall thickening and pericolonic fatty infiltration status quo. There is an increased amount of fluid in the left paracolic gutter. The amount of free fluid in the pelvis appears unchanged. Note is again made of multiple dilated gas and fluid-filled small bowel loops. Abnormal retroperitoneal gas is again identified status quo. The lung bases are unchanged. There are emphysematous changes status quo with bibasilar subsegmental atelectatic changes. The liver, gallbladder, spleen, pancreas, adrenal glands, and kidneys are unchanged. The abdominal aorta is unchanged. Bone window technique throughout the examination shows no change in the osseous structures. IMPRESSION: The pelvic abscess seen previously has increased in size. Other related findings as described above. <Electronically signed by Jamie Juárez > 01/05/21 1000
[2021-01-05] MEDS: NICOTINE 14 MG/24 HR TRANSDERMAL TD SCH (10:06)
[2021-01-05] MEDS: MIRALAX *UNIT DOSE* 17GM PACKET PO SCH (10:55)
--- NOTE | 2021-01-05 12:53 | IPNPDOC ---
Date Seen The patient was seen on 01/05/21. Progress Note SUBJECTIVE: c/o redness in right antecubital fossa where iv was and pain. Patient denies nausea, vomiting. multiple liquid stools yesterday. No abdominal pain. No fever or chills overnight. OBJECTIVE: PE Vital signs: see below General: Awake, alert, oriented, no distress speaks in full sentences. HEENT: Anicteric, no jaundice. EOMI no cervical LAD Neck: No JVD, no thyromegaly. Lungs: Clear to auscultation, no wheezing or rales. Heart: S1 and S2 sinus rhythm. Abdomen: soft doughy distended +BS tympanitic tender in left lower quadrant, no guarding or rebound, no CVA tenderness. Extremities: No cyanosis, clubbing or pitting edema. LABORATORY DATA/IMAGING STUDIES/MICROBIOLOGY: Have been reviewed. ASSESSMENT: 60-year-old male with history of alcohol abuse, tobacco abuse transferred from [facility] after being found to have a complicated diverticulitis with perforation and abscess. Given I.V. Zosyn, admitted to [facility] with a general surgical consult, started on Zosyn. Patient had spike in temperature and was given vancomycin. He has a history of alcohol abuse and tobacco abuse currently with nicotine replacement therapy as well as [facility] protocol. IMPRESSIONS: 1. Complicated acute sigmoid diverticulitis with perforation and retroperitoneal abscess with increased gas. Drain could not be placed by radiology Dr. Hahn because the abscess was diffuse defer to general surgery for intervention. keep npo. continue ivf iv meropenem. ID consulted. 2. Partial small bowel obstruction with transition point in the right mid abdomen: having bowel movements. no t needing ng tube. npo 3. Alcohol abuse: Monitoring for withdrawal. 4. Active tobacco abuse: Currently on nicotine replacement. 5. right peripheral iv infiltration: elevate not edematous 6. lost iv access: picc line. VS, I&O, 24H, Leah Vital Signs/I&O Vital Signs Date Time Temp Pulse Resp B/P (MAP) Pulse Ox O2 Delivery O2 Flow Rate FiO2 01/05/21 06:00 98.3 82 18 136/87 (103) 96 Room Air I&O- Last 24 Hours up to 6 AM 01/05/21 06:00 Intake Total 3460 ml Output Total 0 ml Balance 3460 ml Laboratory Data 24H LABS Laboratory Tests 2 01/05/21 06:03: Immature Granulocyte % (Auto) 2.5, Neutrophils (%) (Auto) 65.1, Lymphocytes (%) (Auto) 9.1L, Monocytes (%) (Auto) 22.0H, Eosinophils (%) (Auto) 0.9, Basophils (%) (Auto) 0.4, Neutrophils # (Auto) 8.8H, Lymphocytes # (Auto) 1.2L, Monocytes # (Auto) 3.0H, Eosinophils # (Auto) 0.1, Basophils # (Auto) 0.1, Nucleated Red Blood Cells % (auto) 0.0, Anion Gap 8, Glomerular Filtration Rate > 60.0, Calcium Level 8.3L, C-Reactive Protein, Quantitative 7.15H CBC/BMP Laboratory Tests 01/05/21 06:03 ALMA CRUZ MD Jan 05, 2021 12:53
[2021-01-05 14:00] VITALS: BP 136/87
[2021-01-05] MEDS ORDERED: LIDOCAINE 1% MDV 20ML VIAL As Ordered ONE (14:52)
[2021-01-05] MEDS ORDERED: ISOVUE-300 61% 50ML VIAL As Ordered ONE (16:35)
--- NOTE | 2021-01-05 17:51 | REP ---
PROCEDURE NAME: PICC LINE INSERTION W/SITERITE CLINICAL INFORMATION: no iv access/ perforated sigmoid/abscess iv merem. COMPARISON: None. PROCEDURE DESCRIPTION: The procedure was performed by NATALIE Gordon, under the direct supervision of Dr. Hahn. The risks and benefits of the procedure were explained to the patient and an informed consent was obtained both verbally and written. Directly prior to the start of the procedure a formal time-out was completed in the procedure room. The left basilic vein was localized using ultrasound guidance. The skin was prepped and draped in sterile fashion. Four mL of 1% lidocaine 10 mg/mL was used as a local anesthetic. Using ultrasound guidance the left basilic vein was cannulated, and a 0.018 guidewire was inserted and advanced. It was at this point that it was determined that the left brachial artery had been accessed after using 10 mL of Isovue-300 contrast. The wire and vessel dilator were removed. Pressure was held at the site for 15 minutes. A 2nd attempt was made to access the left basilic vein. This was unsuccessful. The patient tolerated the procedure well and there were no immediate complications. CONCLUSION: Unsuccessful attempt to place a left PICC line. 1.7 minutes of fluoroscopy time was utilized for this procedure. Some fluoroscopic images are performed with last image hold technology. These images require no additional radiation. <Electronically signed by Meg Patel > 01/05/21 1744 <Electronically signed by Contreras Hahn > 01/05/21 [id number]
[2021-01-05] MEDS: D5W/0.45% SODIUM CHLORIDE 1,000 ML IV SCH ×2 (17:55→21:38)
[2021-01-05 22:00] VITALS: BP 142/87
[2021-01-06] VITALS (10 sets, daily range): BP systolic 93–155; BP diastolic 57–87
[2021-01-06] MEDS: MEROPENEM INJ 1 GM in IV 1 EA IV SCH ×4 (01:15→19:12)
[2021-01-06] MEDS: D5W/0.45% SODIUM CHLORIDE 1,000 ML IV SCH ×2 (01:15→20:38)
[2021-01-06 07:50] LABS: BASO # 0.1 10^3/uL (0.0-0.2); BASO % 0.4 % (0.0-1.0); EOS # 0.2 10^3/uL (0.0-0.5); EOS % 0.9 % (0.0-3.0); HEMATOCRIT 39.7 % (42.0-52.0); HEMOGLOBIN 13.5 g/dl (13.5-17.5); LYMPH # 1.2 10^3/uL (1.5-5.0); LYMPH % 7.5 % (24.0-44.0); MEAN CORPUSCULAR HEMOGLOBIN 32.9 pg (27.0-33.0); MEAN CORPUSCULAR VOLUME 96.8 fl (80.0-96.0); MONO % 13.4 % (2.0-8.0); NEUTROPHILS # 12.3 10^3/uL (1.5-8.5); NEUTROPHILS % 75.3 % (36.0-66.0); PLATELET COUNT, AUTOMATED 477 10^3/uL (150-450); WHITE BLOOD COUNT 16.4 10^3/uL (4.0-10.0)
[2021-01-06 07:56] LABS: BLOOD UREA NITROGEN 8 MG/DL (7-18); CALCIUM LEVEL 7.9 MG/DL (8.5-10.1); CARBON DIOXIDE LEVEL 30 MEQ/L (21-32); CHLORIDE LEVEL 102 MEQ/L (98-107); CREATININE FOR GFR 0.66 MG/DL (0.70-1.30); GLOMERULAR FILTRATION RATE > 60.0 (>56); GLUCOSE, FASTING 119 MG/DL (70-100); POTASSIUM SERUM 3.1 MEQ/L (3.5-5.1); SODIUM LEVEL 136 MEQ/L (136-145)
[2021-01-06 08:40] LABS: MONO # 2.2 10^3/uL (0.0-0.8)
[2021-01-06] MEDS: NICOTINE 14 MG/24 HR TRANSDERMAL TD SCH (08:42)
[2021-01-06] MEDS ORDERED: fentaNYL 100 MCG/2 ML INJECTION (J3010) As Ordered ONE ×2 (09:16→11:21)
[2021-01-06] MEDS ORDERED: dexameTHASONE 4 MG/ML 1ML VIAL (J1100 PER 1MG) As Ordered ONE (09:16)
[2021-01-06] MEDS ORDERED: MIDAZOLAM INJ 2MG/2ML VIAL (J2250 PER 1MG) As Ordered ONE (09:16)
[2021-01-06] MEDS ORDERED: propofoL 200 MG/20 ML VIAL As Ordered ONE (09:16)
[2021-01-06] MEDS ORDERED: LIDOCAINE 2% 100MG/5ML SDV (FOR ANES.) As Ordered ONE (09:16)
[2021-01-06] MEDS ORDERED: ROCURONIUM BROMIDE 50 MG/5 ML VIAL As Ordered ONE ×2 (09:16→11:56)
[2021-01-06] MEDS ORDERED: ONDANSETRON 4MG/2ML VIAL As Ordered ONE (09:16)
--- NOTE | 2021-01-06 10:48 | IPNPDOC ---
Text Note Date of Service The patient was seen on 01/06/21. NOTE To OR this am for ex lap, abd washout and colostomy. No changes to H+P. Consent is signed. Humza Freed DO VS,Leah, I+O VSLeah, I+O Laboratory Tests 01/06/21 07:22 Vital Signs Date Time Temp Pulse Resp B/P (MAP) Pulse Ox O2 Delivery O2 Flow Rate FiO2 01/06/21 06:00 98.9 74 16 155/80 (105) 94 Room Air I&O- Last 24 Hours up to 6 AM 01/06/21 06:00 Intake Total 1300 ml Balance 1300 ml ARIANA FREED DO Jan 06, 2021 10:48
[2021-01-06] MEDS ORDERED: ACETAMINOPHEN 1000MG 100ML IV BTL (OFIRMEV) (J0131 PER 10MG) As Ordered ONE (11:10)
[2021-01-06] MEDS ORDERED: KETOROLAC 60MG 2ML VIAL As Ordered ONE (11:20)
[2021-01-06] MEDS ORDERED: SUGAMMADEX SODIUM 500 MG/5 ML VIAL (BRIDION) As Ordered ONE (11:20)
[2021-01-06] MEDS ORDERED: HYDROmorphone HCL 2 MG/ML 1ML VIAL As Ordered ONE (11:38)
[2021-01-06] MEDS ORDERED: LACRILUBE (AKWA TEARS) OPHTH OINT 3.5 GM As Ordered ONE (12:10)
[2021-01-06] MEDS ORDERED: ePHEDrine SULFATE 25 MG/5 ML(5MG/ML) SYRINGE As Ordered ONE (12:19)
[2021-01-06] MEDS ORDERED: PHENYLephrine 500MCG 5ML (100MCG/ML) SYRINGE As Ordered ONE (12:19)
--- NOTE | 2021-01-06 12:28 | IPNPDOC ---
Text Note Date of Service The patient was seen on 01/06/21. NOTE Subjective: Patient seen and examined at bedside. No acute overnight events reported. Patient voices no new medical complaints this morning. Objective: Vital Signs: reviewed General: NAD, lying comfortably in bed HEENT: NC/AT, EOMI Neck: supple, no masses Chest: lungs CTA B/L Heart: +S1S2, RRR Abd: soft, NT, ND, +BS Ext: no edema Skin: no rashes MSK: full ROM at large joints Neuro: no gross focal deficits Psych: AAOx3 A/P: 60-year-old male with history of alcohol abuse, tobacco abuse transferred from [facility] after being found to have a complicated diverticulitis with perforation and abscess. Given I.V. Zosyn, admitted to [facility] with a general surgical consult, started on Zosyn. Patient had spike in temperature and was given vancomycin. He has a history of alcohol abuse and tobacco abuse currently with nicotine replacement therapy as well as [facility] protocol. #Complicated acute sigmoid diverticulitis - with perforation and retroperitoneal abscess with increased gas. - Drain could not be placed by radiology Dr. Hahn because the abscess was diffuse - follow as per general surgery - NPO/IVF - plan for exlap today for abd washout, colostomy - continue IV meropenem - ID consulted #partial SBO - transition point in the right mid abdomen- as above - OR today #EtOH abuse - Monitoring for withdrawal. #Active tobacco abuse: Currently on nicotine replacement. #DVT prophylaxis - mechanical VS,Fishbone, I+O VS, Fishbone, I+O Laboratory Tests 01/06/21 07:22 Vital Signs Date Time Temp Pulse Resp B/P (MAP) Pulse Ox O2 Delivery O2 Flow Rate FiO2 01/06/21 06:00 98.9 74 16 155/80 (105) 94 Room Air I&O- Last 24 Hours up to 6 AM 01/06/21 06:00 Intake Total 1300 ml Balance 1300 ml OLEGARIO LOZANO MD Jan 06, 2021 12:28
[2021-01-06] MEDS ORDERED: oxyCODONE 5MG TAB PO PRN (13:45)
[2021-01-06] MEDS ORDERED: METOCLOPRAMIDE INJ 10MG/2ML VIAL (J2765 PER 1) IV PRN (13:45)
[2021-01-06] MEDS ORDERED: HYDROMORPHONE HCL 0.5 MG/ 0.5 ML SYRINGE (J1170 PER 1) IV PRN (13:45)
[2021-01-06] MEDS ORDERED: LR 1,000 ML IV SCH (13:45)
[2021-01-06] MEDS ORDERED: ONDANSETRON 4MG/2ML VIAL IV PRN (13:45)
[2021-01-06] MEDS ORDERED: fentaNYL 100 MCG/2 ML INJECTION (J3010) IV PRN (13:45)
[2021-01-06] MEDS ORDERED: MORPHINE 2 MG/ML 1ML VIAL (J2270) IV PRN (13:45)
[2021-01-06] MEDS: KETOROLAC 30 MG/ML 1ML VIAL IV PRN (15:00)
[2021-01-06] MEDS: ENOXAPARIN 40MG/0.4ML SYRINGE (J1650 PER 10MG) SC SCH (15:03)
[2021-01-06] MEDS ORDERED: CHLORASEPTIC SPRAY MT PRN (16:15)
--- NOTE | 2021-01-06 16:59 | RO ---
OPERATIVE NOTE DATE OF OPERATION: 01/06/2021 PREOPERATIVE DIAGNOSIS: Perforated sigmoid diverticulitis with pelvic abscess. POSTOPERATIVE DIAGNOSIS: Perforated sigmoid diverticulitis with pelvic abscess. PROCEDURES: Exploratory laparotomy with abdominal washout, evacuation of abscess, sigmoid resection and end colostomy. SURGEON: Contreras Freed DO ASSISTANTS: 1. RHINA LEDESMA MD who assisted with mobilization and resection of the colon. 2. CORTEZ HORNER who assisted in retraction and visualization. ANESTHESIA: General. ESTIMATED BLOOD LOSS: 50 mL. COMPLICATIONS: None. INDICATIONS FOR PROCEDURE: The patient is a 60-year-old male who presented with a complicated diverticulitis with a contained abscess a week ago. He has had a few CT scans over the last week identifying this retroperitoneal abscess that continues to increase in size and is not reachable to interventional radiology to drain it. The recommendation was to proceed with resection. Risks and benefits of the procedure, not limited to, but including bleeding, infection, hernias, damage to surrounding structures, and need for further surgery, were discussed in detail with the patient. Informed consent was obtained and the procedure was planned. DESCRIPTION OF PROCEDURE: The patient was brought back to operating room #6. After sufficient sedation, the abdomen was sterilely prepped and draped. A Nation catheter and an NG tube were placed. A time-out was then done to confirm the proper patient and proper procedure. Following that, a midline laparotomy incision was made superior to the umbilicus all the way down to the pubic symphysis. Once the abdomen was entered, there were multiple dilated loops of small bowel that were adhered to the retroperitoneum around the pelvis. Once the loops of small bowel were gently teased up out of the way, the abscess was easily identified. A large amount of purulent fluid was evacuated. Next, the sigmoid colon was elevated and examined. A Bookwalter retractor was then placed to hold the small bowel out of the way. The sigmoid was then dissected free around the rectosigmoid junction up towards the mid sigmoid. The lateral peritoneal reflection was mobilized heading medially. The healthy colon in the mid sigmoid was then transected using an [place] 60 with a green load on the stapler. The distal segment was then dissected free heading posteriorly, heading down through the mesentery until healthy rectum was identified. The bowel was then transected there again with a stapler and removed. Once that was completed, the sigmoid and descending colons were mobilized free medially and laterally until a sufficient length was achieved to create a colostomy. The incision was then made in the left mid abdomen. The sigmoid was brought out through that incision, held in place. A 19-Syriac Daniel drain was placed in the pelvis and brought out through a stab incision in the right lower quadrant. The abdomen was irrigated with a couple liters of warm saline. The small bowel was then placed back inside of the abdomen. The fascia was closed with running looped PDS sutures. The skin was closed with nando. The ostomy was then matured with interrupted 3-0 Vicryl sutures. The abdomen was then cleaned and dried. Nando were applied to the skin incisions. A drain was sutured in place with a 2-0 silk suture. An ostomy appliance was applied, thus ending the procedure. The patient tolerated the procedure well and was sent to the PACU in stable condition.
[2021-01-06] MEDS ORDERED: SODIUM CHLORIDE 0.9% 1000ML IV ONE (17:45)
[2021-01-06] MEDS: NICOTINE POLACRILEX 2 MG GUM PO PRN (19:13)
[2021-01-06] MEDS: NORCO, ANEXSIA 5/325MG TABLET (HYDROcodone/ACETAMINOPHEN) PO PRN (20:39)
[2021-01-07 03:50] VITALS: BP 97/66
[2021-01-07] MEDS: D5W/0.45% SODIUM CHLORIDE 1,000 ML IV SCH (06:37)
[2021-01-07] MEDS: NORCO, ANEXSIA 5/325MG TABLET (HYDROcodone/ACETAMINOPHEN) PO PRN ×2 (06:37→21:08)
[2021-01-07 07:07] LABS: MEAN CORPUSCULAR HEMOGLOBIN 33.6 pg (27.0-33.0); MEAN CORPUSCULAR HGB CONC 34.5 g/dl (32.0-36.5); MEAN CORPUSCULAR VOLUME 97.3 fl (80.0-96.0); PLATELET COUNT, AUTOMATED 514 10^3/uL (150-450); RED BLOOD COUNT 3.39 10^6/uL (4.30-6.10); WHITE BLOOD COUNT 22.1 10^3/uL (4.0-10.0)
[2021-01-07 07:08] LABS: HEMOGLOBIN 11.4 g/dl (13.5-17.5)
[2021-01-07 07:22] LABS: BLOOD UREA NITROGEN 16 MG/DL (7-18); CARBON DIOXIDE LEVEL 31 MEQ/L (21-32); CHLORIDE LEVEL 101 MEQ/L (98-107); CREATININE FOR GFR 1.19 MG/DL (0.70-1.30); GLOMERULAR FILTRATION RATE > 60.0 (>56); GLUCOSE, FASTING 152 MG/DL (70-100); SODIUM LEVEL 136 MEQ/L (136-145)
[2021-01-07 07:23] LABS: ALBUMIN 1.8 GM/DL (3.2-5.2); ALT/SGPT 67 U/L (12-78); BILIRUBIN,TOTAL 0.8 MG/DL (0.2-1.0); CALCIUM LEVEL 7.8 MG/DL (8.5-10.1); TOTAL PROTEIN 4.6 GM/DL (6.4-8.2)
[2021-01-07] MEDS ORDERED: NS 1,000 ML IV ONE (08:25)
--- NOTE | 2021-01-07 08:40 | IPNPDOC ---
Text Note Date of Service The patient was seen on 01/07/21. NOTE No acute events overnight. Pain is controlled. No air or stool in the bag yet. He has not been out of bed yet. VSSAF NAD abd - soft, nd, TTP appropriate, drain is serosanguinous labs - below A) 60y/o male with perforated diverticulitis with abscess POD#1 s/p ex lap with sigmoid resection and colostomy. P) sips and chips NGT ambulate fluid bolus d/c hughes this afternoon Humza Freed DO VS,Leah, I+O VS, Fishbone, I+O Laboratory Tests 01/07/21 06:32 Vital Signs Date Time Temp Pulse Resp B/P (MAP) Pulse Ox O2 Delivery O2 Flow Rate FiO2 01/07/21 07:30 118 11 95 Nasal Cannula 2.0 01/07/21 03:50 97.4 97/66 (76) I&O- Last 24 Hours up to 6 AM 01/07/21 06:00 Intake Total 3400 ml Output Total 2070 ml Balance 1330 ml ARIANA FREED DO Jan 07, 2021 08:39
[2021-01-07] MEDS: NICOTINE 14 MG/24 HR TRANSDERMAL TD SCH (08:57)
[2021-01-07] MEDS: ENOXAPARIN 40MG/0.4ML SYRINGE (J1650 PER 10MG) SC SCH (08:57)
[2021-01-07 10:00] VITALS: BP 108/70
[2021-01-07] MEDS: NS 1,000 ML IV SCH ×2 (10:45→18:14)
--- NOTE | 2021-01-07 11:20 | IPNPDOC ---
Text Note Date of Service The patient was seen on 01/07/21. NOTE Subjective: Patient seen and examined at bedside. No acute overnight events reported. He is POD #1. Notes generalized abdominal discomfort. Objective: Vital Signs: reviewed General: NAD, lying comfortably in bed HEENT: NC/AT, EOMI, NG tube in place Neck: supple, no masses Chest: lungs CTA B/L Heart: +S1S2, RRR Abd: soft, TTP, drain in place with serosanguineous drainage Ext: no edema Skin: no rashes Neuro: no gross focal deficits Psych: AAOx3 A/P: 60-year-old male with history of alcohol abuse, tobacco abuse transferred from [facility] after being found to have a complicated diverticulitis with perforation and abscess. Given I.V. Zosyn, admitted to [facility] with a general surgical consult, started on Zosyn. Patient had spike in temperature and was given vancomycin. He has a history of alcohol abuse and tobacco abuse currently with nicotine replacement therapy as well as [facility] protocol. #Complicated acute sigmoid diverticulitis - POD #1 exlap/abd washout/colostomy - with perforation and retroperitoneal abscess with increased gas. - Drain could not be placed by radiology Dr. Hahn because the abscess was diffuse - follow as per general surgery - NPO/IVF #partial SBO - transition point in the right mid abdomen- as above #thrombocytosis/leukocytosis - likely reactive #EtOH abuse - Monitoring for withdrawal. #Active tobacco abuse: Currently on nicotine replacement. #DVT prophylaxis - mechanical VS,Fishbone, I+O VS, Fishbone, I+O Laboratory Tests 01/07/21 06:32 Vital Signs Date Time Temp Pulse Resp B/P (MAP) Pulse Ox O2 Delivery O2 Flow Rate FiO2 01/07/21 10:00 97.8 105 17 108/70 (83) 97 Nasal Cannula 2.0 I&O- Last 24 Hours up to 6 AM 01/07/21 06:00 Intake Total 3400 ml Output Total 2070 ml Balance 1330 ml OLEGARIO LOZANO MD Jan 07, 2021 11:20
[2021-01-07 14:00] VITALS: BP 112/73
[2021-01-07] MEDS: KETOROLAC 30 MG/ML 1ML VIAL IV PRN (15:22)
[2021-01-07] MEDS: NICOTINE POLACRILEX 2 MG GUM PO PRN (21:07)
[2021-01-07 22:00] VITALS: BP 110/67
[2021-01-08] MEDS: NS 1,000 ML IV SCH ×3 (01:29→15:24)
[2021-01-08 02:00] VITALS: BP 115/75
[2021-01-08 05:58] LABS: HEMATOCRIT 29.4 % (42.0-52.0); HEMOGLOBIN 9.9 g/dl (13.5-17.5); MEAN CORPUSCULAR HEMOGLOBIN 33.7 pg (27.0-33.0); MEAN CORPUSCULAR HGB CONC 33.7 g/dl (32.0-36.5); RED BLOOD COUNT 2.94 10^6/uL (4.30-6.10); WHITE BLOOD COUNT 22.4 10^3/uL (4.0-10.0)
[2021-01-08 06:00] VITALS: BP 122/81
[2021-01-08 06:01] LABS: PLATELET COUNT, AUTOMATED 624 10^3/uL (150-450)
[2021-01-08 06:16] LABS: ALT/SGPT 59 U/L (12-78); BILIRUBIN,TOTAL 0.8 MG/DL (0.2-1.0); BLOOD UREA NITROGEN 19 MG/DL (7-18); CALCIUM LEVEL 8.5 MG/DL (8.5-10.1); CARBON DIOXIDE LEVEL 31 MEQ/L (21-32); CHLORIDE LEVEL 104 MEQ/L (98-107); CREATININE FOR GFR 0.73 MG/DL (0.70-1.30); GLOMERULAR FILTRATION RATE > 60.0 (>56); GLUCOSE, FASTING 92 MG/DL (70-100); POTASSIUM SERUM 3.9 MEQ/L (3.5-5.1); SODIUM LEVEL 142 MEQ/L (136-145); TOTAL PROTEIN 5.4 GM/DL (6.4-8.2)
[2021-01-08] MEDS: KETOROLAC 30 MG/ML 1ML VIAL IV PRN ×2 (06:17→15:24)
[2021-01-08] MEDS: NICOTINE POLACRILEX 2 MG GUM PO PRN ×3 (06:17→19:57)
[2021-01-08] MEDS: ENOXAPARIN 40MG/0.4ML SYRINGE (J1650 PER 10MG) SC SCH (08:04)
[2021-01-08] MEDS: NICOTINE 14 MG/24 HR TRANSDERMAL TD SCH (08:05)
[2021-01-08 10:00] VITALS: BP 116/78
--- NOTE | 2021-01-08 11:38 | IPNPDOC ---
Text Note Date of Service The patient was seen on 01/08/21. NOTE Subjective: Patient seen and examined at bedside. No acute overnight events reported. He is POD #2 for exlap/colostomy. Feeling better today. Objective: Vital Signs: reviewed General: NAD, lying comfortably in bed, talkative HEENT: NC/AT, EOMI, NG tube in place Neck: supple, no masses Chest: lungs CTA B/L Heart: +S1S2, RRR Abd: soft, +BS, AMEENA drain in place with serosanguineous drainage; bandages in place, area is C/D/I Ext: no edema Skin: no rashes Neuro: no gross focal deficits Psych: AAOx3 A/P: 60-year-old male with history of alcohol abuse, tobacco abuse transferred from [facility] after being found to have a complicated diverticulitis with perforation and abscess. Given I.V. Zosyn, admitted to [facility] with a general surgical consult, started on Zosyn. Patient had spike in temperature and was given vancomycin. He has a history of alcohol abuse and tobacco abuse currently with nicotine replacement therapy as well as CIWA protocol. #Complicated acute sigmoid diverticulitis - POD #2 exlap/abd washout/colostomy - follow as per general surgery - NPO/IVF #partial SBO - transition point in the right mid abdomen- as above #thrombocytosis/leukocytosis - likely reactive #EtOH abuse - Monitoring for withdrawal. #Active tobacco abuse: Currently on nicotine replacement. #DVT prophylaxis - mechanical VS,Fishbone, I+O VS, Fishbone, I+O Laboratory Tests 01/08/21 05:28 Vital Signs Date Time Temp Pulse Resp B/P (MAP) Pulse Ox O2 Delivery O2 Flow Rate FiO2 01/08/21 10:00 99.3 113 18 116/78 (91) 97 Room Air 01/08/21 02:00 2.0 I&O- Last 24 Hours up to 6 AM 01/08/21 05:59 Intake Total 4610 ml Output Total 3320 ml Balance 1290 ml OLEGARIO LOZANO MD Jan 08, 2021 11:38
[2021-01-08 14:00] VITALS: BP 127/83
[2021-01-08 18:00] VITALS: BP 113/72
[2021-01-08] MEDS: NORCO, ANEXSIA 5/325MG TABLET (HYDROcodone/ACETAMINOPHEN) PO PRN (19:57)
[2021-01-08 22:00] VITALS: BP 120/72
--- NOTE | 2021-01-08 22:17 | IPN ---
PROGRESS NOTE DATE: 01/08/2021 HISTORY: The patient is now postop day number two from exploratory laparotomy with drainage of a retroperitoneal abscess, sigmoid colectomy and colostomy, all related to a perforated diverticulum. The patient has remained hemodynamically stable. Vital signs show that he has been afebrile over the past 24 hours. His pulse has ranged in the 98-133 range over the last 24 hours. His blood pressure is good and his room air oxygen saturation is normal. Intake and output show that yesterday he had 4,600 in with 3,300 out. He has had no output yet from his ostomy. His urine output is acceptable and he has a large output from his NG tube. OBJECTIVE: PHYSICAL EXAMINATION: GENERAL APPEARANCE: The patient is sitting up in the bed when I entered, watching TV. He is alert and oriented. He is not having significant pain at the moment. HEART: Regular rhythm and the lungs are clear. ABDOMEN: Long midline incision. There is a colostomy in the left lower abdomen with an appliance in place. There is no evidence of any output from the stoma though it is pink and viable. He has a drain in the right lower quadrant which has a small amount of blood fluid in the tubing. The abdomen is quiet to auscultation. EXTREMITIES: Calves are nontender. LABORATORY STUDIES: White count today of 22,000 with a hemoglobin of 10, hematocrit of 29 and a platelet count of 624,000. Chemistry profile shows normal electrolytes with a BUN of 19, creatinine 0.7 and a glucose of 92. Liver function tests are normal with a total protein of 5.4 and an albumin of 2.0. IMPRESSION: The patient is doing acceptably following his surgery. His ostomy has not yet begun to function. He has a large amount out of his NG tube with 2,900 out yesterday. This is bilious fluid. PLAN: 1. The patient will remain n.p.o. with his NG tube in place until there is evidence of some ostomy function. 2. He is encouraged to be up out of bed, ambulating. 3. We will continue his current analgesic medications. [facility] SYSTEM[facility]
[2021-01-09] MEDS: NS 1,000 ML IV SCH (00:12)
[2021-01-09 02:00] VITALS: BP 139/79
[2021-01-09 06:00] VITALS: BP 143/83
[2021-01-09 06:22] LABS: HEMATOCRIT 25.9 % (42.0-52.0); HEMOGLOBIN 8.4 g/dl (13.5-17.5); MEAN CORPUSCULAR HEMOGLOBIN 33.2 pg (27.0-33.0); MEAN CORPUSCULAR HGB CONC 32.4 g/dl (32.0-36.5); MEAN CORPUSCULAR VOLUME 102.4 fl (80.0-96.0); PLATELET COUNT, AUTOMATED 598 10^3/uL (150-450); RED BLOOD COUNT 2.53 10^6/uL (4.30-6.10)
[2021-01-09 06:40] LABS: ALBUMIN 1.8 GM/DL (3.2-5.2); ALT/SGPT 50 U/L (12-78); BILIRUBIN,TOTAL 0.7 MG/DL (0.2-1.0); BLOOD UREA NITROGEN 21 MG/DL (7-18); CALCIUM LEVEL 7.9 MG/DL (8.5-10.1); CARBON DIOXIDE LEVEL 31 MEQ/L (21-32); CHLORIDE LEVEL 108 MEQ/L (98-107); CREATININE FOR GFR 0.67 MG/DL (0.70-1.30); GLOMERULAR FILTRATION RATE > 60.0 (>56); GLUCOSE, FASTING 76 MG/DL (70-100); POTASSIUM SERUM 3.5 MEQ/L (3.5-5.1); SODIUM LEVEL 147 MEQ/L (136-145); TOTAL PROTEIN 5.2 GM/DL (6.4-8.2)
[2021-01-09] MEDS: ENOXAPARIN 40MG/0.4ML SYRINGE (J1650 PER 10MG) SC SCH (08:00)
[2021-01-09] MEDS: NORCO, ANEXSIA 5/325MG TABLET (HYDROcodone/ACETAMINOPHEN) PO PRN ×2 (08:00→21:17)
[2021-01-09] MEDS: NICOTINE 14 MG/24 HR TRANSDERMAL TD SCH (08:00)
[2021-01-09] MEDS: NICOTINE POLACRILEX 2 MG GUM PO PRN (08:01)
[2021-01-09] MEDS ORDERED: MORPHINE 2 MG/ML 1ML VIAL (J2270) IV PRN (08:20)
[2021-01-09] MEDS: LR 1,000 ML IV SCH ×3 (08:33→21:17)
--- NOTE | 2021-01-09 09:54 | REP ---
INDICATION: follow SBO. COMPARISON: CT abdomen and pelvis, 01/05/2021. TECHNIQUE: Two AP supine images of the abdomen were obtained. FINDINGS: There has been interval laparotomy with a left lower quadrant colostomy. There are multiple drains in the abdomen. There is again noted small bowel dilatation however there is gas and contrast noted in the colon which may indicate a partial or resolving bowel obstruction. There is a nasogastric tube noted in the area of the stomach. Midline skin edda are noted. IMPRESSION: 1. Status post interval laparotomy and left lower quadrant colostomy. There is also been placement of multiple drains. 2. Continued small bowel dilatation. <Electronically signed by Espinoza Smith > 01/09/21 [id number]
[2021-01-09 10:00] VITALS: BP 141/77
--- NOTE | 2021-01-09 10:21 | IPNPDOC ---
Text Note Date of Service The patient was seen on 01/09/21. NOTE Subjective: Patient seen and examined at bedside. No acute overnight events reported. He is POD #3 for exlap/colostomy. Continues to feel better, anxious to advance oral intake. Objective: Vital Signs: reviewed General: NAD, lying comfortably in bed, talkative HEENT: NC/AT, EOMI, NG tube in place Neck: supple, no masses Chest: lungs CTA B/L Heart: +S1S2, RRR Abd: soft, +BS, AMEENA drain in place with serosanguineous drainage; bandages in place, area is C/D/I Ext: no edema Skin: no rashes Neuro: no gross focal deficits Psych: AAOx3 A/P: 60-year-old male with history of alcohol abuse, tobacco abuse transferred from [facility] after being found to have a complicated diverticulitis with perforation and abscess. Given I.V. Zosyn, admitted to [facility] with a general surgical consult, started on Zosyn. Patient had spike in temperature and was given vancomycin. He has a history of alcohol abuse and tobacco abuse currently with nicotine replacement therapy as well as CIWA protocol. #Complicated acute sigmoid diverticulitis - POD #3 exlap/abd washout/colostomy - follow as per general surgery - NPO/IVF #partial SBO - transition point in the right mid abdomen- as above #hypernatremia - NS d/c'd #thrombocytosis/leukocytosis - likely reactive - improving #anemia - possibly dilutional - continue to monitor, if continues to worsen, d/c lovenox #EtOH abuse - Monitoring for withdrawal. #Active tobacco abuse: Currently on nicotine replacement. #DVT prophylaxis - mechanical Disposition: pending clinical improvement, surgery follow up VS,Fishbone, I+O VS, Fishbone, I+O Laboratory Tests 01/09/21 05:38 Vital Signs Date Time Temp Pulse Resp B/P (MAP) Pulse Ox O2 Delivery O2 Flow Rate FiO2 01/09/21 08:30 18 01/09/21 08:00 Room Air 01/09/21 06:00 98.6 86 143/83 (103) 97 01/08/21 02:00 2.0 I&O- Last 24 Hours up to 6 AM 01/09/21 06:00 Intake Total 4440 ml Output Total 4420 ml Balance 20 ml OLEGARIO LOZANO MD Jan 09, 2021 10:21
[2021-01-09 14:00] VITALS: BP 147/95
--- NOTE | 2021-01-09 15:29 | IPN ---
PROGRESS NOTE DATE: 01/09/2021 HISTORY: Patient is now postoperative day #3 from exploratory laparotomy with drainage of a retroperitoneal abscess and sigmoid colectomy with end colostomy. He has had a minimal amount of fluid and he reports a small amount of air from his stoma today. He has been taking a large amount of ice chips orally and so his nasogastric (NG) output is artificially elevated and difficult to estimate. Vital signs show that he has been afebrile over the past 24 hours. His pulse has been ranging from 86 to 119 over the last 24 hours. His blood pressure is good, with a normal room air oxygen saturation. Intake and output show that yesterday he had 3900 recorded in, 900 of which was reported as oral, and he has had 3370 out. He had 2900 from his NG tube and 70 out from his abdominal drain yesterday. He had only 20 mL out from his drain this morning. Urine output was recorded as 450 this morning. PHYSICAL EXAMINATION: GENERAL: Patient was up walking in the room when I came to see him. His NG tube is in place, but not connected to suction at this time. He has a drain in the right lower quadrant. HEART EXAM: Shows a regular rhythm. LUNGS: Generally clear. ABDOMEN: Remains somewhat protuberant, particularly in the lower half of the abdomen. His midline incision is well closed with edda. The stoma is viable with a small amount, no more than 20 or 30 mL of fluid in the ostomy bag. Auscultation reveals a few tinkly bowel sounds in the mid and upper abdomen. LABORATORY STUDIES: Today show a white count of 14,000, which is down from 22 yesterday. Hemoglobin is 8 with a hematocrit of 26 and his platelet count is 600,000. His chemistry profile shows a sodium of 147, potassium 3.5, chloride 108, CO2 of 31, BUN of 21, creatinine 0.7 and a glucose of 76. Liver function tests are normal, with a total protein of 5.2 and an albumin of 1.8. KUB this morning was interpreted as showing status post laparotomy and left lower quadrant colostomy with continued small bowel dilitation. On my review, he has some contrast remaining in his right colon in particular. The drain is noted in his lower abdomen and he has several, quite dilated, air-filled loops of small bowel in the mid abdomen. IMPRESSION: Patient has had some minimal output from his stoma. It is hard to estimate his nasogastric (NG) output, given the ice chips he has been taking. His KUB still suggests some quite dilated loops of small bowel in the mid abdomen consistent with his distention. His white blood cell count has come down nicely since yesterday, though his hematocrit has also diminished slightly as well. PLAN: I will continue patient's NG tube. I advised him that he can swish and spit some clear liquids just for a taste in his mouth. I advised him he can chew gum if he wishes. I advised him that I would not try advancing his diet at this point, as I think he still has evidence for either ileus or obstruction. He will remain on his current ice chips. I will put in an order to place a peripherally inserted central catheter (PICC) line tomorrow anticipating a need to start total parenteral nutrition (TPN), although if he shows significant improvement in his bowel function, we may be able to avoid this. AKIN
[2021-01-09 18:00] VITALS: BP 150/89
[2021-01-09 22:00] VITALS: BP 137/78
[2021-01-10 02:01] VITALS: BP 146/95
[2021-01-10] MEDS: NICOTINE POLACRILEX 2 MG GUM PO PRN ×2 (05:32→10:17)
[2021-01-10] MEDS: NORCO, ANEXSIA 5/325MG TABLET (HYDROcodone/ACETAMINOPHEN) PO PRN ×2 (05:39→15:39)
[2021-01-10 05:53] VITALS: BP 170/91
[2021-01-10 05:58] LABS: HEMATOCRIT 25.5 % (42.0-52.0); HEMOGLOBIN 8.3 g/dl (13.5-17.5); MEAN CORPUSCULAR HEMOGLOBIN 33.6 pg (27.0-33.0); MEAN CORPUSCULAR HGB CONC 32.5 g/dl (32.0-36.5); MEAN CORPUSCULAR VOLUME 103.2 fl (80.0-96.0); PLATELET COUNT, AUTOMATED 610 10^3/uL (150-450); RED BLOOD COUNT 2.47 10^6/uL (4.30-6.10); WHITE BLOOD COUNT 14.2 10^3/uL (4.0-10.0)
[2021-01-10 06:30] LABS: ALBUMIN 1.8 GM/DL (3.2-5.2); ALT/SGPT 42 U/L (12-78); BILIRUBIN,TOTAL 0.6 MG/DL (0.2-1.0); BLOOD UREA NITROGEN 16 MG/DL (7-18); CALCIUM LEVEL 8.3 MG/DL (8.5-10.1); CARBON DIOXIDE LEVEL 34 MEQ/L (21-32); CHLORIDE LEVEL 105 MEQ/L (98-107); CREATININE FOR GFR 0.57 MG/DL (0.70-1.30); GLOMERULAR FILTRATION RATE > 60.0 (>56); GLUCOSE, FASTING 85 MG/DL (70-100); POTASSIUM SERUM 3.5 MEQ/L (3.5-5.1); SODIUM LEVEL 147 MEQ/L (136-145); TOTAL PROTEIN 5.1 GM/DL (6.4-8.2)
[2021-01-10] MEDS ORDERED: LIDOCAINE 1% MDV 20ML VIAL As Ordered ONE (08:20)
[2021-01-10 09:30] LABS: OSMOLALITY SERUM 300 MOSM/KG (275-295)
[2021-01-10 10:00] VITALS: BP 145/84
--- NOTE | 2021-01-10 10:13 | IPNPDOC ---
Text Note Date of Service The patient was seen on 01/10/21. NOTE Subjective: Patient seen and examined at bedside. No acute overnight events reported. He is POD #4 for exlap/colostomy. He is very anxious to resume a diet. He also notes tingling in his left hand, that started with initial attempt at picc line. He states his symptoms in his left hand have been improving. Objective: Vital Signs: reviewed General: NAD, lying comfortably in bed, talkative HEENT: NC/AT, EOMI, NG tube in place Neck: supple, no masses Chest: lungs CTA B/L Heart: +S1S2, RRR Abd: soft, +BS, bandages in place, area is C/D/I Ext: no edema Skin: no rashes Neuro: no gross focal deficits, sensation intact throughout, strength 5/5 upper/lower extremities Psych: AAOx3 A/P: 60-year-old male with history of alcohol abuse, tobacco abuse transferred from [facility] after being found to have a complicated diverticulitis with perforation and abscess. Given I.V. Zosyn, admitted to [facility] with a general surgical consult, started on Zosyn. Patient had spike in temperature and was given vancomycin. He has a history of alcohol abuse and tobacco abuse currently with nicotine replacement therapy as well as CICO protocol. #Complicated acute sigmoid diverticulitis - POD #4 exlap/abd washout/colostomy - follow as per general surgery - NG tube in place, AMEENA drain removed 01/09 - NPO/IVF #left upper extremity tingling - will check dopplers today #partial SBO - transition point in the right mid abdomen- as above - follow as per surgery #hypernatremia - NS d/c'd - continue to monitor #thrombocytosis/leukocytosis - likely reactive - improving #anemia - dc lovenox - check H/H this evening, continue to follow #EtOH abuse - continue Monitoring for withdrawal. #Active tobacco abuse - currently on nicotine replacement. #DVT prophylaxis - mechanical Disposition: pending clinical improvement, surgery follow up VS,Fishbone, I+O VS, Fishbone, I+O Laboratory Tests 01/10/21 05:02 Vital Signs Date Time Temp Pulse Resp B/P (MAP) Pulse Ox O2 Delivery O2 Flow Rate FiO2 01/10/21 08:40 98.5 98 18 95 Room Air 11/15/21 05:53 170/91 (117) 01/09/21 10:00 97.0 I&O- Last 24 Hours up to 6 AM 01/10/21 06:00 Intake Total 3315 ml Output Total 2850 ml Balance 465 ml OLEGARIO LOZANO MD Jan 10, 2021 10:13
[2021-01-10] MEDS: ENOXAPARIN 40MG/0.4ML SYRINGE (J1650 PER 10MG) SC SCH (10:16)
[2021-01-10] MEDS: NICOTINE 14 MG/24 HR TRANSDERMAL TD SCH (10:17)
[2021-01-10] MEDS: LR 1,000 ML IV SCH (13:30)
[2021-01-10 14:00] VITALS: BP 147/86
--- NOTE | 2021-01-10 14:47 | REP ---
INDICATION: numbness/tingling. COMPARISON: None. TECHNIQUE: Multiple ultrasonographic images of the deep venous structures of the left upper extremity were obtained to rule out deep venous thrombosis. The contralateral subclavian vein was also interrogated in a limited fashion for comparison. FINDINGS: There is no abnormal echogenic material seen in any of the visualized deep venous structures of the left upper extremity. Coaptation where applicable is appropriate throughout. IMPRESSION: Negative exam. <Electronically signed by Jamie Juárez > 01/10/21 [id number]
[2021-01-10] MEDS: SODIUM CHLORIDE 0.9% INJ 10 ML SYR IV SCH (15:43)
[2021-01-10 17:37] LABS: HEMATOCRIT 24.9 % (42.0-52.0); HEMOGLOBIN 7.9 g/dl (13.5-17.5)
[2021-01-10] MEDS ORDERED: FAT EMULSION IV 20% 500 ML IV SCH (18:00)
[2021-01-10] MEDS ORDERED: MULTIVITAMIN -ADULT INJECTION 10 ML, ZINC/COPPER/MANGANESE/SELENIUM 1 ML in AMINO AC/EL... IV SCH (18:00)
[2021-01-10 22:00] VITALS: BP 141/94
[2021-01-11] MEDS: LR 1,000 ML IV SCH ×2 (00:10→10:20)
[2021-01-11 02:00] VITALS: BP 138/89
[2021-01-11] MEDS: NORCO, ANEXSIA 5/325MG TABLET (HYDROcodone/ACETAMINOPHEN) PO PRN ×4 (02:00→21:53)
--- NOTE | 2021-01-11 05:51 | IPN ---
PROGRESS NOTE DATE: 01/10/2021 SUBJECTIVE: The patient is postop day #4 from an exploratory laparotomy with drainage of an abscess and sigmoid colectomy with end colostomy. He has not yet had a great return of bowel function. He reports several small bits of gas from his ostomy yesterday but nothing of significance today and had perhaps 100 ml out in his bag. He continues to take a large amount of ice chips orally so his NG output is quite large and it is impossible to estimate the actual output from his GI tract. He reports that he is voiding well. OBJECTIVE: Vital signs shows that he has been afebrile over the past 24 hours. His pulse is in the 90s. Blood pressure is good and his room air oxygen saturation is in the mid 90s. Intake and output shows that yesterday he had 4000 recorded in with 4000 recorded out. He had 850 ml of urine measured and 100 ml of stool total yesterday. Physical exam: Patient is up in the room walking. He is alert and oriented. He does not appear to be in significant discomfort at present. Heart exam shows a regular rhythm of about 100. The lungs show good breath sounds. The abdomen remains mildly distended. I think his bowel sounds are somewhat improved. His ostomy is pink and viable. His incision is clean and dry with edda in place. He has a minimal amount of liquid stool in his bag. LABORATORY DATA: Laboratory studies today shows a white count of 14,000 with a hemoglobin of 8 and hematocrit of 26 and a platelet count of 610,000. Chemistry profile shows a sodium of 147, potassium of 3.5, chloride 109, CO2 34, BUN is 16 and creatinine is 0.6 and a glucose of 85. IMPRESSION: Patient has not yet had a good return of bowel function. His abdomen still appears somewhat distended and his ostomy output of air or stool is fairly minimal. It is impossible to estimate his actual NG output because of his large intake of water and/or ice chips. He does appear fairly comfortable. PLAN: Patient had a PICC line placed as ordered this morning. I will start him on some total parenteral nutrition to provide some nutrition to him as he has been NPO or very limited in his diet for greater than a week. I will continue his NG-tube for now. I discussed with him the possibility of a trial of NG clamping and the patient preferred to defer this a day for reasons not clear to me. He is encouraged to be up ambulating. Hopefully, he will have a resumption of GI function soon. I will check a KUB in the morning to see if his dilated small bowel loops have resolved. AKIN
[2021-01-11 06:00] VITALS: BP 150/91
[2021-01-11] MEDS: SODIUM CHLORIDE 0.9% INJ 10 ML SYR IV SCH ×2 (06:52→18:48)
[2021-01-11 07:34] LABS: HEMATOCRIT 30.6 % (42.0-52.0); MEAN CORPUSCULAR HGB CONC 32.4 g/dl (32.0-36.5); PLATELET COUNT, AUTOMATED 715 10^3/uL (150-450); WHITE BLOOD COUNT 16.1 10^3/uL (4.0-10.0)
[2021-01-11 07:36] LABS: HEMOGLOBIN 9.9 g/dl (13.5-17.5)
[2021-01-11 08:03] LABS: ALBUMIN 2.1 GM/DL (3.2-5.2); ALT/SGPT 42 U/L (12-78); BILIRUBIN,TOTAL 0.5 MG/DL (0.2-1.0); BLOOD UREA NITROGEN 12 MG/DL (7-18); CALCIUM LEVEL 8.5 MG/DL (8.5-10.1); CARBON DIOXIDE LEVEL 35 MEQ/L (21-32); CHLORIDE LEVEL 103 MEQ/L (98-107); CREATININE FOR GFR 0.72 MG/DL (0.70-1.30); GLOMERULAR FILTRATION RATE > 60.0 (>56); GLUCOSE, FASTING 109 MG/DL (70-100); POTASSIUM SERUM 2.7 MEQ/L (3.5-5.1); SODIUM LEVEL 144 MEQ/L (136-145); TOTAL PROTEIN 6.5 GM/DL (6.4-8.2)
--- NOTE | 2021-01-11 08:17 | REP ---
INDICATION: Need for TPN access. COMPARISON: None. TECHNIQUE: The procedure was performed under the direct supervision of Dr. Smith. The risks and benefits of the procedure were explained to the patient and informed consent was obtained. The right basilic vein was localized using ultrasound guidance. The skin was prepped and draped in a sterile fashion. 1 mL of 1% lidocaine was used as a local anesthetic. Using ultrasound guidance the basilic vein was cannulated and a 0.018 guidewire was inserted and advanced to the SVC using fluoroscopic guidance, and last image hold technology. The needle was removed and a 5.5 Japanese dilator and peel-away sheath was inserted over the guide wire. A 5.5 Japanese dual lumen catheter was cut to length of 41 cm. The dilator was removed and the catheter was inserted over the guide wire with the tip ending in the SVC. The peel-away sheath was removed and the catheter was flushed with heparinized saline as per Hospital protocol. The catheter was affixed to the skin and a sterile dressing was applied. Estimated blood loss: The patient tolerated the procedure well and there were no immediate complications. 0.2 minutes of fluoro time was utilized for this procedure. FINDINGS: None IMPRESSION: PICC line insertion right basilic vein with the tip ending in the SVC. <Electronically signed by Kian Morales > 01/10/21 142 <Electronically signed by Espinoza Smith > 01/11/21 [id number]
[2021-01-11] MEDS: NICOTINE 14 MG/24 HR TRANSDERMAL TD SCH (08:33)
[2021-01-11] MEDS: KCL 10MEQ/100ML SWI (KRUN) 10 MEQ in IV 1 EA IV SCH ×6 (08:54→14:53)
--- NOTE | 2021-01-11 09:42 | REP ---
INDICATION: follow SBO COMPARISON: None. TECHNIQUE: Supine view of the abdomen and pelvis. FINDINGS: Evidence for recent surgery with midline skin edda noted. Nasogastric tube courses to the left upper quadrant. Bowel gas pattern demonstrates diffusely distended air-filled loops of bowel suggesting ileus versus obstruction. IMPRESSION: Differential diagnosis includes ileus versus obstruction. Consider serial abdominal radiographic evaluation if necessary. <Electronically signed by Marcelino Joshua > 01/11/21 [id number]
--- NOTE | 2021-01-11 11:04 | IPNPDOC ---
Text Note Date of Service The patient was seen on 01/11/21. NOTE General surgery. Dr. Hernandes The patient is a 60-year-old male status post exploratory laparotomy with drainage of abscess and sigmoid colectomy with end colostomy as per Dr. Freed 01/06/2021. The patient has had small amounts of gas and stool from the ostomy, 300 mL as documented yesterday. NG tube is still in place. Afebrile, T-max 99.7 Heart rate 106, respiratory rate 18, blood pressure 150/91, 94% room air. The patient is awake and alert and sitting comfortably on the side of the bed. No acute distress NG tube is in place Lungs are clear to auscultation S1-S2 regular rate rhythm Abdomen still with mild distention, surgical site is clean/dry/intact, edda in place, ostomy is pink, there is a small amount of liquid stool noted in the bag. WBC 16.1, 14.2 yesterday. Hemoglobin 9.9 Platelets 715 Potassium 2.7 this morning, IV supplement ordered as per hospitalist. Abdominal x-ray this morning with diffusely distended air-filled loops of bowel suggesting ileus versus obstruction. NG tube output 1800 mL yesterday, 800 mL so far today. Assessment/plan Status post exploratory laparotomy with drainage of abscess and sigmoid colectomy with end colostomy as per Dr. Freed 01/06/2021. The patient is reviewed as per Dr. Hernandes. Still continuing to have small amounts of output from the ostomy. Also still continuing to have large amounts of NG output but the patient is consuming a lot of ice chips. WBC is increased slightly today but remains afebrile. Abdominal x-ray report indicates air filled bowel loops suggesting ileus versus obstruction, Dr. Hernandes to further review. NG tube in place. NPO, PICC/TPN. Hypokalemia. IV supplement ordered as per hospitalist. DVT prophylaxis. Lovenox was discontinued last evening, hemoglobin was noted to be 7.9. Hemoglobin this morning noted to be 9.9 The patient is ambulatory. SCD/teds. VS,Fishbone, I+O VS, Fishbone, I+O Laboratory Tests 01/10/21 17:13 01/11/21 07:12 Vital Signs Date Time Temp Pulse Resp B/P (MAP) Pulse Ox O2 Delivery O2 Flow Rate FiO2 01/11/21 09:30 20 Room Air 01/11/21 06:00 97.6 106 150/91 (110) 94 01/09/21 10:00 97.0 I&O- Last 24 Hours up to 6 AM 01/11/21 05:59 Intake Total 1260 ml Output Total 3000 ml Balance -1740 ml Attending Note Attending Note I saw patient much later in Day than HARVEY Trivedi. Agree with her note except as follows. Patient has had NG clamped since early in am and has not taken any extra ice chips. With NG to suction for 10 mins or so this evening he put out about 150 cc of bilious fluid. Wound noted to have some thick pink purulent fluid expressible from the wound below the umbilicus. Edges slightly red. Imp: Tolerating NG clamped pretty well. Possible wound infection. Plan: Leave NG clamped overnight. Continue TPN Every other staple removed from incision to promote drainage. Will follow. Matilde Trivedi Jan 11, 2021 11:04 Osvaldo Hernandes Jan 13, 2021 22:47
[2021-01-11 14:00] VITALS: BP 120/84
[2021-01-11] MEDS ORDERED: AMINO AC/ELECTROLYTE/DEX/CALC 2,000 ML IV SCH (18:00)
[2021-01-11] MEDS ORDERED: FAT EMULSION IV 20% 500 ML IV SCH (18:00)
--- NOTE | 2021-01-11 19:38 | IPNPDOC ---
Date Seen The patient was seen on 01/11/21. Progress Note SUBJECTIVE: No acute events overnight. Pain controlled mostly during day, increased with movement. Tolerated TPN well. Denies shortness of breath, chest pain, fevers, chills, n/v/d. OBJECTIVE: PHYSICAL EXAMINATION: VS: Please see below CONSTITUTIONAL: No acute distress, resting comfortably, AAO x 3 EYES: PERRLA, EOM intact HENT, MOUTH: Normocephalic, atraumatic, moist mucous membranes, NG tube secured in place, clamped NECK: SUPPLE, no JVD, no lymphadenopathy, no carotid bruit CV: Regular rate and rhythm, S1S2 normal, no murmurs/rubs/gallops RESPIRATORY: Clear to auscultation bilaterally, no rales/rhonchi/wheezes GI: large vertical scar stapled, well healing, ostomy pink with fluid in bag. BS positive in 4 quadrants, soft, distended, no rebound or guarding, no organomegaly : Deferred MUSCULOSKELETAL: Normal ROM. No cyanosis, clubbing, swelling, joint deformity, extremity edema INTEGUMENTARY: Intact, no rashes, no lesions, no erythema NEUROLOGIC: Cranial Nerves II-XII are intact, no focal deficits PSYCHIATRIC: Mood and affect are normal LABS: please see below IMAGING: ABD XR 01/11/21: Differential diagnosis includes ileus versus obstruction. Consider serial abd ominal radiographic evaluation if necessary. A/P: 60-year-old male with history of alcohol abuse, tobacco abuse transferred from [facility] after being found to have a complicated diverticulitis with perforation and abscess. Given I.V. Zosyn, admitted to [facility] with a general surgical consult, started on Zosyn. Patient had spike in temperature and was given vancomycin. He has a history of alcohol abuse and tobacco abuse currently with nicotine replacement therapy as well as [facility] protocol. #Complicated acute sigmoid diverticulitis - POD #5 exlap/abd washout/colostomy - WBC slightly more incr at 16K, afebrile - Repeat abd xr above from today - Follow as per general surgery - AMEENA drain removed 01/09/21 - NPO with ice chips, TPN, pain control. - D/w surgery as to keep IVFs or stop #Left upper extremity tingling- improving -Doppler neg -Monitor #Ileus vs. obstruction -ABD xr above -NG tube in place but clamped -NPO with ice chips, TPN, pain control -Follow surgical suggestions #Hypokalemia, acute -S/p KCL 60 mEq today -F/u BMP tonight -Replace PRN #Hypernatremia- resolved - NS d/c'd #Leukocytosis possibly reactive to surgery -WBC 16K, slightly worse -Afebrile -No BCx drawn -No abx currently -If s/s of infection, culture and consider empiric abx. #Anemia, acute -Improved h/H -CBC daily -If remains elevated, consider restarting lovenox #EtOH abuse -Monitoring for withdrawal. #Active tobacco abuse -nicotine replacement. #DVT prophylaxis - mechanical DISPOSITION: Surgery following closely. Ambulating well on own. Plan is discharge home when medically improved. VS, I&O, 24H, Fishbone Vital Signs/I&O Vital Signs Date Time Temp Pulse Resp B/P (MAP) Pulse Ox O2 Delivery O2 Flow Rate FiO2 01/11/21 16:00 16 Room Air 01/11/21 14:00 98.3 92 120/84 (96) 18 01/09/21 10:00 97.0 I&O- Last 24 Hours up to 6 AM 01/11/21 06:00 Intake Total 1260 ml Output Total 3000 ml Balance -1740 ml Laboratory Data 24H LABS Laboratory Tests 2 01/11/21 07:12: Nucleated Red Blood Cells % (auto) 0.0, Anion Gap 6L, Glomerular Filtration Rate > 60.0, Calcium Level 8.5, Total Bilirubin 0.5, Aspartate Amino Transf (AST/SGOT) 25, Alanine Aminotransferase (ALT/SGPT) 42, Alkaline Phosphatase 83, Total Protein 6.5#, Albumin 2.1L, Albumin/Globulin Ratio 0.5 CBC/BMP Laboratory Tests 01/11/21 07:12 Sonia Chambers MD Jan 11, 2021 19:38
[2021-01-11 20:30] LABS: BLOOD UREA NITROGEN 14 MG/DL (7-18); CALCIUM LEVEL 8.7 MG/DL (8.5-10.1); CARBON DIOXIDE LEVEL 37 MEQ/L (21-32); CHLORIDE LEVEL 104 MEQ/L (98-107); CREATININE FOR GFR 0.66 MG/DL (0.70-1.30); GLOMERULAR FILTRATION RATE > 60.0 (>56); GLUCOSE, FASTING 95 MG/DL (70-100); SODIUM LEVEL 141 MEQ/L (136-145)
[2021-01-11 22:00] VITALS: BP 125/89
[2021-01-12 02:00] VITALS: BP 122/85
[2021-01-12] MEDS: NORCO, ANEXSIA 5/325MG TABLET (HYDROcodone/ACETAMINOPHEN) PO PRN ×3 (04:42→20:06)
[2021-01-12] MEDS: SODIUM CHLORIDE 0.9% INJ 10 ML SYR IV SCH ×2 (04:42→20:06)
[2021-01-12 06:00] VITALS: BP 133/94
[2021-01-12 07:36] LABS: BASO # 0.1 10^3/uL (0.0-0.2); BASO % 0.3 % (0.0-1.0); EOS # 0.2 10^3/uL (0.0-0.5); HEMATOCRIT 28.1 % (42.0-52.0); LYMPH # 1.3 10^3/uL (1.5-5.0); LYMPH % 8.9 % (24.0-44.0); MEAN CORPUSCULAR HEMOGLOBIN 33.1 pg (27.0-33.0); MEAN CORPUSCULAR VOLUME 103.3 fl (80.0-96.0); MONO # 1.3 10^3/uL (0.0-0.8); MONO % 8.4 % (2.0-8.0); NEUTROPHILS # 12.1 10^3/uL (1.5-8.5); NEUTROPHILS % 80.7 % (36.0-66.0); RED BLOOD COUNT 2.72 10^6/uL (4.30-6.10)
[2021-01-12 07:37] LABS: PLATELET COUNT, AUTOMATED 550 10^3/uL (150-450)
[2021-01-12 07:59] LABS: BLOOD UREA NITROGEN 16 MG/DL (7-18); C REACTIVE PROTEIN QUANTITATIV 6.24 MG/DL (0.00-0.30); CALCIUM LEVEL 8.5 MG/DL (8.5-10.1); CARBON DIOXIDE LEVEL 33 MEQ/L (21-32); CHLORIDE LEVEL 100 MEQ/L (98-107); CREATININE FOR GFR 0.69 MG/DL (0.70-1.30); GLOMERULAR FILTRATION RATE > 60.0 (>56); GLUCOSE, FASTING 126 MG/DL (70-100); POTASSIUM SERUM 3.7 MEQ/L (3.5-5.1); SODIUM LEVEL 139 MEQ/L (136-145)
--- NOTE | 2021-01-12 08:51 | IPNPDOC ---
Text Note Date of Service The patient was seen on 01/12/21. NOTE General surgery. Dr. Hernandes The patient is a 60-year-old male status post exploratory laparotomy with drainage of abscess and sigmoid colectomy with end colostomy as per Dr. Freed 01/06/2021. The patient states his NG tube was clamped yesterday morning from approximately 8 30-12 30. The patient states his NG tube was clamped overnight and this morning he states he is not having any nausea, no vomiting. Reports flatus in the ostomy bag. Denies abdominal pain. 25 mL of stool was documented yesterday but the patient states he had more than that. 150 mL of stool documented today. Afebrile, T-max 99.6 Heart rate 110, respiratory rate 18, blood pressure 133/94, 96 % room air. The patient is awake and alert and sitting comfortably on the side of the bed. No acute distress NG tube is in place, clean Lungs are clear to auscultation S1-S2 regular rate rhythm Abdomen still with distention, but the patient states there is no tenderness with palpation. Surgical site is clean/dry/intact, edda in place, ostomy is pink, there is a small amount of liquid stool noted in the bag with air. WBC 15.0, decreased slightly from 16.1 yesterday. Hemoglobin 9.0 Potassium 3.7 Assessment/plan Status post exploratory laparotomy with drainage of abscess and sigmoid colectomy with end colostomy as per Dr. Freed 01/06/2021. The patient is reviewed as per Dr. Hernandes. The patient reports there has been more output from the ostomy, more flatus from the ostomy. Tolerating clamping of NG tube currently. WBC decreased slightly from yesterday, CRP this morning 6.24. PICC/TPN. Reviewed as per Dr. Hernandes, since tolerating NG clamping and there has been more output from the ostomy plan is to proceed with full liquid diet, discontinue NG tube. Hypokalemia. IV supplement ordered as per hospitalist. 3.7 this morning. DVT prophylaxis. The patient is ambulatory. SCD/teds. VS,Fishbone, I+O VS, Fishbone, I+O Laboratory Tests 01/11/21 19:36 01/12/21 07:04 Vital Signs Date Time Temp Pulse Resp B/P (MAP) Pulse Ox O2 Delivery O2 Flow Rate FiO2 01/12/21 06:00 99.6 110 18 133/94 (107) 96 Room Air 01/09/21 10:00 97.0 I&O- Last 24 Hours up to 6 AM 01/12/21 06:00 Intake Total 2710 ml Output Total 1725 ml Balance 985 ml Attending Note Attending Note Agree with note by HARVYE Trivedi. Will D/C TPN if tolerates fulls today. Matilde Trivedi Jan 12, 2021 08:51 Osvaldo Hernandes Jan 14, 2021 00:55
[2021-01-12 10:00] VITALS: BP 130/84
[2021-01-12] MEDS: NICOTINE 14 MG/24 HR TRANSDERMAL TD SCH (11:01)
[2021-01-12] MEDS: NICOTINE POLACRILEX 2 MG GUM PO PRN ×2 (11:01→15:54)
[2021-01-12 14:38] VITALS: BP 142/84
--- NOTE | 2021-01-12 16:51 | IPNPDOC ---
Date Seen The patient was seen on 01/12/21. Progress Note SUBJECTIVE: NG tube taken out, did well with full liquid diet. Pain still controlled mostly during day, increased with movement. Denies shortness of breath, incr abdominal pain, chest pain, fevers, chills, n/v/d. OBJECTIVE: PHYSICAL EXAMINATION: VS: Please see below CONSTITUTIONAL: No acute distress, resting comfortably, AAO x 3 EYES: PERRLA, EOM intact HENT, MOUTH: Normocephalic, atraumatic, moist mucous membranes, NG tube secured in place, clamped NECK: SUPPLE, no JVD, no lymphadenopathy, no carotid bruit CV: Regular rate and rhythm, S1S2 normal, no murmurs/rubs/gallops RESPIRATORY: Clear to auscultation bilaterally, no rales/rhonchi/wheezes GI: large vertical scar stapled, well healing, ostomy pink with fluid in bag. BS positive in 4 quadrants, soft, distended, no rebound or guarding, no organomegaly : Deferred MUSCULOSKELETAL: Normal ROM. No cyanosis, clubbing, swelling, joint deformity, extremity edema INTEGUMENTARY: Intact, no rashes, no lesions, no erythema NEUROLOGIC: Cranial Nerves II-XII are intact, no focal deficits PSYCHIATRIC: Mood and affect are normal LABS: please see below IMAGING: ABD XR 01/11/21: Differential diagnosis includes ileus versus obstruction. Consider serial abdominal radiographic evaluation if necessary. A/P: 60-year-old male with history of alcohol abuse, tobacco abuse transferred from [facility] after being found to have a complicated diverticulitis with perforation and abscess. Given I.V. Zosyn, admitted to [facility] [place] with a general surgical consult, started on Zosyn. Patient had spike in temperature and was given vancomycin. He has a history of alcohol abuse and tobacco abuse currently with nicotine replacement therapy as well as [facility] protocol. #Complicated acute sigmoid diverticulitis - POD #6 ex lap/abd washout/colostomy - WBC 15K, afebrile - Repeat abd xr above from today - Follow as per general surgery - AMEENA drain removed 01/09/21 - Full diet, TPN, pain control. #Ileus vs. obstruction-improving -ABD xr above -NG tube out -Full diet, TPN, pain control -Follow surgical suggestions #Left upper extremity tingling- improving -Doppler neg -Monitor #Hypokalemia, acute-improved -S/p KCL 60 mEq 01/11/21 -F/u BMP daily -Replace PRN #Leukocytosis possibly reactive to surgery -WBC 15K, slightly worse -Afebrile -No BCx drawn -No abx currently -If s/s of infection, culture and consider empiric abx. #Anemia, acute -Improved h/H -CBC daily -If remains elevated, consider restarting lovenox #EtOH abuse -Monitoring for withdrawal. #Active tobacco abuse -nicotine replacement. #DVT prophylaxis - mechanical, consider restarting lovenox DISPOSITION: Surgery following closely. Ambulating well on own. Plan is discharge home when medically improved. VS, I&O, 24H, Fishbone Vital Signs/I&O Vital Signs Date Time Temp Pulse Resp B/P (MAP) Pulse Ox O2 Delivery O2 Flow Rate FiO2 01/12/21 14:38 98.3 107 19 142/84 (103) 96 Room Air 01/09/21 10:00 97.0 I&O- Last 24 Hours up to 6 AM 01/12/21 06:00 Intake Total 2710 ml Output Total 1725 ml Balance 985 ml Laboratory Data 24H LABS Laboratory Tests 2 01/11/21 19:36: Anion Gap 0L, Glomerular Filtration Rate > 60.0, Calcium Level 8.7 01/12/21 07:04: Anion Gap 6L, Glomerular Filtration Rate > 60.0, Calcium Level 8.5, Immature Granulocyte % (Auto) 0.7, Neutrophils (%) (Auto) 80.7H, Lymphocytes (%) (Auto) 8.9L, Monocytes (%) (Auto) 8.4H, Eosinophils (%) (Auto) 1.0, Basophils (%) (Auto) 0.3, Neutrophils # (Auto) 12.1H, Lymphocytes # (Auto) 1.3L, Monocytes # (Auto) 1.3H, Eosinophils # (Auto) 0.2, Basophils # (Auto) 0.1, Nucleated Red Blood Cells % (auto) 0.0, C-Reactive Protein, Quantitative 6.24H CBC/BMP Laboratory Tests 01/11/21 19:36 01/12/21 07:04 Sonia Chambers MD Jan 12, 2021 16:51
[2021-01-12 18:00] VITALS: BP_SYST 129; BP_SYST 134; BP_DIAS 69; BP_DIAS 83
[2021-01-12 22:00] VITALS: BP 130/83
[2021-01-13] VITALS (7 sets, daily range): BP systolic 115–134; BP diastolic 71–87
[2021-01-13] MEDS: SODIUM CHLORIDE 0.9% INJ 10 ML SYR IV SCH ×2 (06:02→18:29)
[2021-01-13] MEDS: NORCO, ANEXSIA 5/325MG TABLET (HYDROcodone/ACETAMINOPHEN) PO PRN ×3 (06:03→18:32)
[2021-01-13] MEDS: NICOTINE 14 MG/24 HR TRANSDERMAL TD SCH (08:16)
[2021-01-13] MEDS: NICOTINE POLACRILEX 2 MG GUM PO PRN ×3 (08:26→16:29)
--- NOTE | 2021-01-13 08:50 | IPNPDOC ---
Text Note Date of Service The patient was seen on 01/13/21. NOTE General surgery. Dr. Hernandes The patient is a 60-year-old male status post exploratory laparotomy with drainage of abscess and sigmoid colectomy with end colostomy as per Dr. Freed 01/06/2021. NG tube was removed yesterday. The patient states he had full liquids yesterday morning and he ate too much too fast and felt bloated. He did not eat lunch. He had a small amount for dinner last night. Oral intake was recorded to be 1240ml. This morning, he has not had breakfast yet. He denies abdominal pain o ther than around his incision, still has some abdominal distention about the same as yesterday. He denies any nausea or vomiting. Afebrile, T-max 99.6 VSS The patient is awake and alert and sitting comfortably on the side of the bed. No acute distress MMM Lungs are clear to auscultation S1-S2 regular rate rhythm Abdomen still with distention about the same as yesterday, but the patient states there is no tenderness with palpation. Surgical site is clean/dry/intact, edda in place, ostomy is pink, there is a small amount of liquid stool noted in the bag. He states it was just emptied. Recorded to have 575 mL of stool output yesterday and 550 mL so far today. No new labs today. Assessment/plan Status post exploratory laparotomy with drainage of abscess and sigmoid colectomy with end colostomy as per Dr. Freed 01/06/2021. The patient is reviewed as per Dr. Hernandes. Currently tolerating full liquids. Still has some abdominal distention but it is about the same as yesterday. Does not complain of abdominal pain, nausea or vomiting 575 mL output of stool yesterday and 550 mL so far today recorded. No new labs this morning. Continue to monitor. DVT prophylaxis. The patient is ambulatory. SCD/teds. VS,Fishbone, I+O VS, Fishbone, I+O Vital Signs Date Time Temp Pulse Resp B/P (MAP) Pulse Ox O2 Delivery O2 Flow Rate FiO2 01/13/21 08:05 97.5 86 16 132/84 (100) 99 Room Air 01/09/21 10:00 97.0 I&O- Last 24 Hours up to 6 AM 01/13/21 05:59 Intake Total 2380 ml Output Total 1100 ml Balance 1280 ml Attending Note Attending Note Agree with Matilde except as to wound. Tolerated fulls well. Increased air and stool per ostomy. TPN done. Still some pink drainage from lower part of wound. Advanced to reg diet. Will remove remaining edda in am. Check labs am Matilde Trivedi Jan 13, 2021 08:50 Osvaldo Hernandes Jan 14, 2021 00:58
--- NOTE | 2021-01-13 12:50 | IPNPDOC ---
Date Seen The patient was seen on 01/13/21. Progress Note SUBJECTIVE: Discussed with Dr. Hernandes about transferring primary service to surgery. He agreed. Done in the computer to Dr. Freed as requested. Signing off but if needed again can officially consult. VS, I&O, 24H, Fishbone Vital Signs/I&O Vital Signs Date Time Temp Pulse Resp B/P (MAP) Pulse Ox O2 Delivery O2 Flow Rate FiO2 01/13/21 08:05 97.5 86 16 132/84 (100) 99 Room Air 01/09/21 10:00 97.0 I&O- Last 24 Hours up to 6 AM 01/13/21 06:00 Intake Total 2380 ml Output Total 1600 ml Balance 780 ml Sonia Chambers MD Jan 13, 2021 12:50
[2021-01-14] MEDS: NORCO, ANEXSIA 5/325MG TABLET (HYDROcodone/ACETAMINOPHEN) PO PRN ×3 (00:46→19:03)
[2021-01-14 02:00] VITALS: BP 109/73
[2021-01-14] MEDS: SODIUM CHLORIDE 0.9% INJ 10 ML SYR IV SCH ×2 (05:14→18:13)
[2021-01-14 06:00] VITALS: BP 107/70
[2021-01-14] MEDS: NICOTINE 14 MG/24 HR TRANSDERMAL TD SCH (08:07)
[2021-01-14 08:10] LABS: BASO # 0.1 10^3/uL (0.0-0.2); BASO % 0.6 % (0.0-1.0); EOS # 0.2 10^3/uL (0.0-0.5); HEMATOCRIT 30.4 % (42.0-52.0); HEMOGLOBIN 9.8 g/dl (13.5-17.5); LYMPH # 1.8 10^3/uL (1.5-5.0); LYMPH % 11.9 % (24.0-44.0); MEAN CORPUSCULAR HEMOGLOBIN 32.5 pg (27.0-33.0); MEAN CORPUSCULAR HGB CONC 32.2 g/dl (32.0-36.5); MEAN CORPUSCULAR VOLUME 100.7 fl (80.0-96.0); MONO # 1.7 10^3/uL (0.0-0.8); MONO % 11.1 % (2.0-8.0); NEUTROPHILS # 11.3 10^3/uL (1.5-8.5); NEUTROPHILS % 74.8 % (36.0-66.0); PLATELET COUNT, AUTOMATED 565 10^3/uL (150-450); RED BLOOD COUNT 3.02 10^6/uL (4.30-6.10); WHITE BLOOD COUNT 15.1 10^3/uL (4.0-10.0)
[2021-01-14 08:31] LABS: ALBUMIN 2.2 GM/DL (3.2-5.2); ALT/SGPT 45 U/L (12-78); BILIRUBIN,TOTAL 0.8 MG/DL (0.2-1.0); BLOOD UREA NITROGEN 14 MG/DL (7-18); CALCIUM LEVEL 8.6 MG/DL (8.5-10.1); CARBON DIOXIDE LEVEL 30 MEQ/L (21-32); CHLORIDE LEVEL 100 MEQ/L (98-107); CREATININE FOR GFR 0.84 MG/DL (0.70-1.30); GLOMERULAR FILTRATION RATE > 60.0 (>56); GLUCOSE, FASTING 96 MG/DL (70-100); POTASSIUM SERUM 4.2 MEQ/L (3.5-5.1); SODIUM LEVEL 134 MEQ/L (136-145); TOTAL PROTEIN 6.8 GM/DL (6.4-8.2)
[2021-01-14] MEDS: NICOTINE POLACRILEX 2 MG GUM PO PRN ×3 (09:57→22:33)
[2021-01-14 10:00] VITALS: BP 123/83
--- NOTE | 2021-01-14 12:11 | IPNPDOC ---
Text Note Date of Service The patient was seen on 01/14/21. NOTE General surgery. Dr. Hernandes The patient is a 60-year-old male status post exploratory laparotomy with drainage of abscess and sigmoid colectomy with end colostomy as per Dr. Freed 01/06/2021. The patient is sitting on the side of the bed eating breakfast this morning. States he has been tolerating regular diet. Denies abdominal pain. Denies nausea or vomiting. States there has been a lot of output from his ostomy. Afebrile, T-max 99.8 Heart rate 85, respiratory rate 16, blood pressure 107/70, 97% room air. The patient is awake and alert and sitting comfortably on the side of the bed. No acute distress MMM Lungs are clear to auscultation S1-S2 regular rate rhythm Abdomen still with distention, no change, but the patient states there is no tenderness with palpation. Surgical site with edda intact, there is still some drainage from the lower aspect of the wound, it is pinkish-yellow on the dressing. There is some erythema along the staple line. Ostomy is pink, greenish liquid stool in the bag. Recorded to have 1125 mL WBC 15.1, 15.0 01/12. Neutrophils 74.8, lymphocytes 11.9, monocytes 11.1. Hemoglobin 9.8, 9.0 01/12. Assessment/plan Status post exploratory laparotomy with drainage of abscess and sigmoid colectomy with end colostomy as per Dr. Freed 01/06/2021. The patient is reviewed as per Dr. Hernandes. Currently tolerating regular diet. Still has some abdominal distention but it has been unchanged. Does not complain of abdominal pain, nausea or vomiting Has had more output from the ostomy. WBC noted to be 15.1, 15.0 on 01/12. There has been some drainage from the lower aspect of the incision, Dr. Hernandes has removed some of the edda earlier in the week, planning to remove more edda today. There is some pinkish-yellow drainage noted on the dressing. Continue to monitor. DVT prophylaxis. The patient is ambulatory. SCD/teds. VS,Fishbone, I+O VS, Fishbone, I+O Laboratory Tests 01/14/21 07:34 Vital Signs Date Time Temp Pulse Resp B/P (MAP) Pulse Ox O2 Delivery O2 Flow Rate FiO2 01/14/21 10:00 99.8 108 18 123/83 (96) 95 Room Air 01/09/21 10:00 97.0 I&O- Last 24 Hours up to 6 AM 01/14/21 06:00 Intake Total 2000 ml Output Total 1400 ml Balance 600 ml Attending Note Attending Note I agree with note by HARVEY Trivedi. I saw patient mid to late afternoon. [place] removes from lower half of wound and wound over 2 cm length. Small cavity present but no sig undrained pus. Cx obtained. Abd remains distended but soft and WBC still 15k. Will get CT scan to evaluate for possible abscess. Cx sent from wound. Matilde Trivedi Jan 14, 2021 12:11 Osvaldo Hernandes Jan 15, 2021 12:10
[2021-01-14 14:00] VITALS: BP 120/79
[2021-01-14] MEDS: GASTROGRAFIN SOLUTION 30ML PO SCH ×2 (14:04→14:43)
[2021-01-14] MEDS ORDERED: ISOVUE-370 76% 100ML VIAL As Ordered ONE (15:12)
--- NOTE | 2021-01-14 16:33 | REP ---
INDICATION: evaluate for abscess- persistent increased WBC postop. COMPARISON: Multiple the latest 01/05/2021 TECHNIQUE: Standard helical technique after the intravenous administration of 100 cc Isovue 370. Oral bowel preparatory contrast was also administered. FINDINGS: There is no significant change in the lung bases. Once again, there are multiple gas and fluid-filled dilated small bowel loops in the abdomen. The large abscess seen in the central lower abdominal/upper pelvic mesentery has been surgically evacuated. There is free fluid in the leaves of the small bowel mesentery where the abscess previously resided along with multiple surgical clips and a moderate amount of free fluid in the pelvis. Contrast is seen in the rectum. There is a small amount of free intraperitoneal in the left paracolic gutter. There is a small amount of fluid along the hepatic edge. The liver and spleen are unchanged. The gallbladder is contracted but otherwise unchanged. There is no significant change in appearance of the pancreas, adrenal glands, or kidneys. There are renal cysts status quo. There is no significant change in appearance of the osseous structures. IMPRESSION: Small bowel, as described above, consistent with an ileus and probable partial small bowel obstruction. There is contrast seen in the rectum. The abscess seen previously has been surgically evacuated. I see no discernible abscess formation at this time, however, there are multiple fluid collections within the leaves of the small bowel mesentery where the previous abscess resided. There is a tiny amount of free air surrounded by fluid in the left paracolic gutter. This is likely residual from the surgical procedure which was performed since the last CT. Other findings as described above. <Electronically signed by Jamie Juárez > 01/14/21 [id number]
[2021-01-14 18:00] VITALS: BP 124/81
[2021-01-14 21:55] VITALS: BP 128/85
[2021-01-15] MEDS: NORCO, ANEXSIA 5/325MG TABLET (HYDROcodone/ACETAMINOPHEN) PO PRN ×4 (01:28→21:24)
[2021-01-15 02:00] VITALS: BP 107/73
[2021-01-15] MEDS: SODIUM CHLORIDE 0.9% INJ 10 ML SYR IV SCH ×2 (05:51→18:54)
[2021-01-15 06:00] VITALS: BP 103/67
[2021-01-15] MEDS: NICOTINE POLACRILEX 2 MG GUM PO PRN ×2 (09:35→18:54)
[2021-01-15] MEDS: NICOTINE 14 MG/24 HR TRANSDERMAL TD SCH (09:35)
[2021-01-15 10:00] VITALS: BP 121/75
[2021-01-15] MEDS: ENOXAPARIN 40MG/0.4ML SYRINGE (J1650 PER 10MG) SC SCH (12:07)
[2021-01-15 12:32] LABS: BASO # 0.1 10^3/uL (0.0-0.2); BASO % 0.5 % (0.0-1.0); EOS # 0.1 10^3/uL (0.0-0.5); EOS % 0.6 % (0.0-3.0); HEMATOCRIT 27.4 % (42.0-52.0); HEMOGLOBIN 8.8 g/dl (13.5-17.5); LYMPH % 8.2 % (24.0-44.0); MEAN CORPUSCULAR HEMOGLOBIN 32.4 pg (27.0-33.0); MEAN CORPUSCULAR HGB CONC 32.1 g/dl (32.0-36.5); MEAN CORPUSCULAR VOLUME 100.7 fl (80.0-96.0); MONO # 1.6 10^3/uL (0.0-0.8); MONO % 13.5 % (2.0-8.0); NEUTROPHILS # 9.2 10^3/uL (1.5-8.5); NEUTROPHILS % 76.6 % (36.0-66.0); PLATELET COUNT, AUTOMATED 435 10^3/uL (150-450); RED BLOOD COUNT 2.72 10^6/uL (4.30-6.10)
[2021-01-15 12:59] LABS: ALBUMIN 2.1 GM/DL (3.2-5.2); ALT/SGPT 34 U/L (12-78); BILIRUBIN,TOTAL 0.4 MG/DL (0.2-1.0); BLOOD UREA NITROGEN 10 MG/DL (7-18); CALCIUM LEVEL 8.2 MG/DL (8.5-10.1); CARBON DIOXIDE LEVEL 29 MEQ/L (21-32); CHLORIDE LEVEL 99 MEQ/L (98-107); CREATININE FOR GFR 0.87 MG/DL (0.70-1.30); GLOMERULAR FILTRATION RATE > 60.0 (>56); GLUCOSE, FASTING 101 MG/DL (70-100); POTASSIUM SERUM 4.3 MEQ/L (3.5-5.1); SODIUM LEVEL 133 MEQ/L (136-145); TOTAL PROTEIN 5.6 GM/DL (6.4-8.2)
[2021-01-15 14:00] VITALS: BP 118/74
--- NOTE | 2021-01-15 14:03 | IPN ---
PROGRESS NOTE DATE: 01/15/2021 SUBJECTIVE: The patient is now 9 days postop from exploratory laparotomy with drainage of retroperitoneal abscess and sigmoid colectomy with colostomy for perforated sigmoid diverticulum. He had a CT scan done yesterday because of persistently elevated white count at about 15 thousand with some persistent abdominal distention. The CT scan showed some quite dilated proximal small bowel with decompressed distal small bowel consistent with partial obstruction. He also had several fluid collections in the pelvis in various areas around the small bowel but no definite abscess was seen. OBJECTIVE: VITAL SIGNS: He has been afebrile over the past 24 hours. His pulse is in the 80s to low 100s generally and his blood pressure is excellent with normal room air oxygen saturation. INTAKE AND OUTPUT: Reveals that yesterday he had 1400 reported in with 1300 recorded out, 250 mL of stool and 1 liter of urine. GENERAL: The patient is sitting up on the edge of the bed when I entered his room. He is alert and oriented and appears fairly comfortably. HEART: Shows regular rhythm. LUNGS: Clear. ABDOMEN: Remains quite distended, particularly in the upper portion of the abdomen. The abdomen is soft, there is tympany to percussion in the upper abdomen. The upper portion of his midline incision is closed with edda and looks good and there is some redness along the lower half of the incision with small open area toward the lower end of the incision that has slightly with some pink purulent appearing fluid on the dressing. Lower extremities show the calves to be soft and nontender. He has no new labs today at this time. IMPRESSION: The patient has at least a partial small bowel obstruction by CT yesterday. He does have output from his ostomy. He is feeling quite bloated but has not had any vomiting. His white count has been somewhat elevated although labs were not done this morning. PLAN: I counseled the patient to avoid particularly fibrous fruits or vegetables and to chew his food well. I suggested that he may do well having multiple smaller meals during the course of the day rather than having three large meals. I will recheck a CBC with differential, CPA and CRP today to see where his labs stand. I advised him that as long as food is going through that we do not have to do anything to alleviate his partial obstruction. If this reaches a point where intervention is needed then an open laparotomy would be required. I advised him that based on his labs I may restart some antibiotics. I am still waiting for the culture from his wound done yesterday. I will reorder his Lovenox which had been stopped. AKIN
[2021-01-15 18:00] VITALS: BP 125/82
[2021-01-15 22:00] VITALS: BP 134/82
[2021-01-16] VITALS (7 sets, daily range): BP systolic 123–143; BP diastolic 78–97
[2021-01-16] MEDS: NORCO, ANEXSIA 5/325MG TABLET (HYDROcodone/ACETAMINOPHEN) PO PRN ×4 (04:01→23:45)
[2021-01-16] MEDS: SODIUM CHLORIDE 0.9% INJ 10 ML SYR IV SCH ×2 (04:01→17:34)
[2021-01-16] MEDS: NICOTINE 14 MG/24 HR TRANSDERMAL TD SCH (08:38)
[2021-01-16] MEDS: NICOTINE POLACRILEX 2 MG GUM PO PRN ×3 (08:38→18:19)
[2021-01-16] MEDS: ENOXAPARIN 40MG/0.4ML SYRINGE (J1650 PER 10MG) SC SCH (08:38)
[2021-01-16] MEDS ORDERED: FAT EMULSION IV 20% 500 ML IV SCH (18:00)
[2021-01-16] MEDS ORDERED: AMINO AC/ELECTROLYTE/DEX/CALC 2,000 ML IV SCH (18:00)
--- NOTE | 2021-01-17 05:15 | IPN ---
PROGRESS NOTE DATE: 01/16/2021 HISTORY: The patient is now 10 days postop from exploratory laparotomy with drainage of a retroperitoneal abscess and sigmoid colectomy with colostomy for a perforated sigmoid diverticulum. He had a CT scan done on the because of a persistently elevated white blood cell count at about 15,000. This showed some free fluid in the pelvis and a small amount of free fluid around the base of the small bowel mesentery. He had markedly distended proximal small bowel consistent with a partial obstruction, as he was having some output from his colostomy. He has continued to have a small amount of air and some stool from his ostomy, but he has been emptying it and not measuring it. He reports today that he feels quite full and bloated ever since dinner last evening. He had a small amount of breakfast and has not had anything for lunch and thinks he probably will not be eating dinner either. Vital signs show the patient has been afebrile since last evening at 10 o'clock when he was 100.2. His pulse has been in the low 100s to 111. His blood pressure is good and his room air oxygen saturation in the mid to upper 90s. Intake and output shows that yesterday he had 960 mL in with 500 mL of urine output. PHYSICAL EXAMINATION: The patient is alert and oriented. Heart examination shows a regular tachycardia and the lungs are generally clear. The abdomen is quite distended, particularly in the upper quadrants. His upper half of his incision has edda in place and appears fine. The lower part of the incision remains mainly red and there is still some slightly purulent appearing drainage from the open area at the bottom part of his incision. He has tympany to percussion across the upper abdomen, but is still somewhat soft and without particular tenderness. LABORATORY DATA: Laboratory studies done yesterday showed his white count had come down to 12 with a hemoglobin of 9, hematocrit of 27 and a platelet count of 435,000. His differential count showed 77% neutrophils, 8% lymphocytes and 13% monocytes. Chemistry profile showed sodium of 133, potassium 4.3, chloride 99, Co2 of 29, BUN of 10, creatinine 0.9 and a glucose of 101. Liver function tests are normal with a C-reactive protein of 11, which is up from 6.2 on January 12. Total protein is 5.6 with a albumin of 2.1. IMPRESSION: The patient has what must be a fairly high grade partial small bowel obstruction. He does seem to be having less out from his colostomy. He is complaining today of more bloating and nausea. He had dinner last night and has not really felt up to having anything of significance since then. He has not had any vomiting, but he says he feels like he could. PLAN: The patient was counseled that he appears not to be improving as regards his partial obstruction. I suspect that he is going to require reexploration for this obstruction and I advised him of this. I have recommended that we make him n.p.o. and start him back on total parenteral nutrition. He is agreeable with this plan. We will hold off on the NG tube for now and see if he will be able to decompress just with being n.p.o. for now. I will be going on vacation effective the morning of the and it will be up to Dr. Rashid, who will be covering for me to continue to monitor this patient until Dr. Freed returns if able. [facility]
[2021-01-17 06:00] VITALS: BP 116/75
[2021-01-17] MEDS: SODIUM CHLORIDE 0.9% INJ 10 ML SYR IV SCH ×2 (06:00→18:33)
[2021-01-17] MEDS: NORCO, ANEXSIA 5/325MG TABLET (HYDROcodone/ACETAMINOPHEN) PO PRN ×3 (06:52→18:34)
[2021-01-17 07:48] LABS: BLOOD UREA NITROGEN 10 MG/DL (7-18); CALCIUM LEVEL 8.3 MG/DL (8.5-10.1); CARBON DIOXIDE LEVEL 29 MEQ/L (21-32); CHLORIDE LEVEL 99 MEQ/L (98-107); CREATININE FOR GFR 0.93 MG/DL (0.70-1.30); GLOMERULAR FILTRATION RATE > 60.0 (>56); GLUCOSE, FASTING 111 MG/DL (70-100); SODIUM LEVEL 134 MEQ/L (136-145)
[2021-01-17 08:00] VITALS: BP 131/83
[2021-01-17] MEDS: ENOXAPARIN 40MG/0.4ML SYRINGE (J1650 PER 10MG) SC SCH ×2 (08:26→08:54)
[2021-01-17] MEDS: NICOTINE 14 MG/24 HR TRANSDERMAL TD SCH (08:48)
--- NOTE | 2021-01-17 08:53 | IPNPDOC ---
Text Note Date of Service The patient was seen on 01/17/21. NOTE General surgery. Dr Ledesma. The patient is a 60-year-old male status post exploratory laparotomy with drainage of abscess and sigmoid colectomy with end colostomy as per Dr. Freed 01/06/2021. The patient was made n.p.o. 01/16/2021. He had a CT scan abdomen/pelvis on 01/14 indicating some free fluid in the pelvis and small amount of free fluid around the loop of the small bowel mesentery. He had markedly distended proximal and small bowel consistent with partial obstruction, he was continuing to have some output from his colostomy. He had continued to have a small amount of air and stool from the ostomy, he is emptying it himself and so it has not been measured for several days. Yesterday he reported feeling full and bloated and had not eaten lunch or dinner. He was subsequently made n.p.o. and started back on TPN. This morning, the patient states he is still feeling bloated but it is not any worse than yesterday. He had been feeling nauseated yesterday but denies nausea today. Denies vomiting. States he is still having output from the ostomy and that he just emptied the bag. Temperature 99.1, T-max 100.3 1917 hrs. 01/16/2021. Heart rate 96, respiratory rate 16, blood pressure 116/75, 95% room air. The patient is ambulatory in the room and out of bed to the bathroom, currently sitting up in bed comfortably. Pleasant. Alert and oriented. Lungs are clear to auscultation S1-S2 regular rate rhythm Abdomen is still distended, the patient states about the same as yesterday. Tympanic, no tenderness with palpation, incision is intact, mildly erythematous along the incision line, small amount of drainage noted from the lower portion of the incision on the dressing. Stoma is noted to have some erosion through the skin/retraction. No edema No new labs this morning. Assessment/plan Status post exploratory laparotomy with drainage of abscess and sigmoid colectomy with end colostomy as per Dr. Freed 01/06/2021. Partial small bowel obstruction. Still feels distended this morning but is not reporting any nausea. Still having output from the ostomy. The patient is emptying it himself so output has not been recorded. The patient is n.p.o. TPN Reviewed with Dr Ledesma. Wound culture grew E. coli, IV Levaquin was added. Plan to place NG tube. BMP, CBC and CRP ordered for a.m. VS,Fishbone, I+O VS, Fishbone, I+O Laboratory Tests 01/17/21 06:31 Vital Signs Date Time Temp Pulse Resp B/P (MAP) Pulse Ox O2 Delivery O2 Flow Rate FiO2 01/17/21 07:22 16 01/17/21 06:00 99.1 96 116/75 (89) 95 Room Air I&O- Last 24 Hours up to 6 AM 01/17/21 06:00 Intake Total 780 ml Output Total 600 ml Balance 180 ml Matilde Trivedi Jan 17, 2021 08:44 RHINA LEDESMA MD Feb 02, 2021 11:37
[2021-01-17] MEDS: NICOTINE POLACRILEX 2 MG GUM PO PRN ×3 (08:54→19:05)
[2021-01-17 12:00] VITALS: BP 128/81
[2021-01-17] MEDS: LevoFLOXacin IV 750 MG in IV 1 EA IV SCH (12:38)
[2021-01-17 16:00] VITALS: BP 132/83
[2021-01-17] MEDS ORDERED: FAT EMULSION IV 20% 500 ML IV SCH (18:00)
[2021-01-17] MEDS: HumaLOG INSULIN (NovoLOG) PER UNIT SC SCH (18:00)
[2021-01-17] MEDS ORDERED: AMINO AC/ELECTROLYTE/DEX/CALC 2,000 ML IV SCH (18:00)
[2021-01-17 22:00] VITALS: BP 128/85
--- NOTE | 2021-01-17 22:08 | REPVR ---
PROCEDURE INFORMATION: Exam: XR Chest Exam date and time: 01/17/2021 8:59 PM Age: 60 years old Clinical indication: Device placement; Ng tube; Additional info: Ngt, diminished TECHNIQUE: Imaging protocol: XR of the chest. Views: 1 view. COMPARISON: CT ABD/PEL W/IV ORAL CONTRAS 01/14/2021 3:51 PM FINDINGS: Tubes, catheters and devices: Nasogastric tube with its tip in the region of stomach. Right PICC line catheter with its tip in the distal superior vena cava. Lungs: Unremarkable. No consolidation. Pleural spaces: Unremarkable. No pleural effusion. No pneumothorax. Heart/Mediastinum: Unremarkable. No cardiomegaly. Bones/joints: Unremarkable. IMPRESSION: No acute abnormality. Electronically signed by: Monty Vieyra On 01/17/2021 22:07:49 PM
[2021-01-18] MEDS: HumaLOG INSULIN (NovoLOG) PER UNIT SC SCH ×4 (00:08→18:05)
[2021-01-18] MEDS: NORCO, ANEXSIA 5/325MG TABLET (HYDROcodone/ACETAMINOPHEN) PO PRN ×4 (00:11→18:04)
[2021-01-18 02:00] VITALS: BP 123/81
[2021-01-18 06:00] VITALS: BP 128/76
[2021-01-18] MEDS: SODIUM CHLORIDE 0.9% INJ 10 ML SYR IV SCH ×2 (06:04→18:05)
[2021-01-18] MEDS: NICOTINE POLACRILEX 2 MG GUM PO PRN ×3 (06:20→21:59)
[2021-01-18 06:23] LABS: BASO % 0.5 % (0.0-1.0); EOS # 0.1 10^3/uL (0.0-0.5); EOS % 1.5 % (0.0-3.0); HEMATOCRIT 26.3 % (42.0-52.0); HEMOGLOBIN 8.5 g/dl (13.5-17.5); LYMPH # 1.1 10^3/uL (1.5-5.0); LYMPH % 12.6 % (24.0-44.0); MEAN CORPUSCULAR HEMOGLOBIN 32.1 pg (27.0-33.0); MEAN CORPUSCULAR HGB CONC 32.3 g/dl (32.0-36.5); MEAN CORPUSCULAR VOLUME 99.2 fl (80.0-96.0); MONO # 1.6 10^3/uL (0.0-0.8); MONO % 19.1 % (2.0-8.0); NEUTROPHILS # 5.6 10^3/uL (1.5-8.5); NEUTROPHILS % 65.7 % (36.0-66.0); PLATELET COUNT, AUTOMATED 456 10^3/uL (150-450); RED BLOOD COUNT 2.65 10^6/uL (4.30-6.10); WHITE BLOOD COUNT 8.5 10^3/uL (4.0-10.0)
[2021-01-18 06:47] LABS: BLOOD UREA NITROGEN 11 MG/DL (7-18); CALCIUM LEVEL 8.2 MG/DL (8.5-10.1); CARBON DIOXIDE LEVEL 29 MEQ/L (21-32); CHLORIDE LEVEL 99 MEQ/L (98-107); CREATININE FOR GFR 0.85 MG/DL (0.70-1.30); GLOMERULAR FILTRATION RATE > 60.0 (>56); GLUCOSE, FASTING 116 MG/DL (70-100); POTASSIUM SERUM 4.7 MEQ/L (3.5-5.1); PREALBUMIN 12.7 MG/DL (20.0-40.0); SODIUM LEVEL 133 MEQ/L (136-145)
[2021-01-18] MEDS: ENOXAPARIN 40MG/0.4ML SYRINGE (J1650 PER 10MG) SC SCH (08:11)
[2021-01-18] MEDS: NICOTINE 14 MG/24 HR TRANSDERMAL TD SCH (08:11)
--- NOTE | 2021-01-18 08:37 | IPNPDOC ---
Text Note Date of Service The patient was seen on 01/18/21. NOTE General surgery. Dr Rashid. The patient is a 60-year-old male status post exploratory laparotomy with drainage of abscess and sigmoid colectomy with end colostomy as per Dr. Freed 01/06/2021. The patient was made n.p.o. 01/16/2021. He had a CT scan abdomen/pelvis on 01/14 indicating some free fluid in the pelvis and small amount of free fluid around the loop of the small bowel mesentery. He had markedly distended proximal and small bowel consistent with partial obstruction, he was continuing to have some output from his colostomy. He had continued to have a small amount of air and stool from the ostomy, he is emptying it himself and so it has not been measured for several days. The patient has been started back on TPN, he is NPO and has NG tube in place. There is no output recorded from the NG tube. There is only a small amount of the canister. Output from the ostomy is also not recorded as the patient is emptying it himself. He denies nausea but continues to be very distended. Temperature 97.5, heart rate 100, respiratory rate 16, blood pressure 128/76, 96% room air. He is awake and alert, sitting up in bed. Appears in no acute distress. NG tube in place Lungs with good air entry, no wheezing S1-S2 regular rate rhythm. Abdomen. Appears more distended this morning, the patient is not complaining of any tenderness on exam, incision is intact, edda are in place, there is still some erythema along the incision line with a small amount of drainage noted on the dressing at the lower aspect of the incision. Stoma appears to have some retraction into the subcutaneous tissue, there is a small amount of stool noted in the bag. No edema White blood cell count this morning is 8.5, this is decreased from 12.0 yesterday. Hemoglobin is 8.5, platelet count is 456 CRP is 15.1, this is increased from 11.0 on 01/15/2021. Prealbumin is 12.7. Wound culture from lower abdominal incision grew E. coli Assessment/plan Status post exploratory laparotomy with drainage of abscess and sigmoid colectomy with end colostomy as per Dr. Freed 01/06/2021. Last CT 01/16/2021 was consistent with partial obstruction as the patient was continuing to have some output from the colostomy. The patient is appearing more distended this morning, it is difficult to tell how much output there has been from the ostomy because the patient is emptying it himself and it has not been recorded. There has also been very little output from the NG tube since it was inserted yesterday. Dr. Rashid did try to flush the NG tube this morning but there was no change in output following this. He does not seem to be decompressed with insertion of NG tube yesterday. The patient is reviewed and examined as per Dr. Rashid this morning. Labs are reviewed as per Dr. Rashid Continue n.p.o. Continue NG tube Continue TPN, this is renewed. Continue IV Levaquin. AXR this am with report indicating continued evidence for obstruction, similar c/w previous CT. Plan for CT abdomen/pelvis with IV and p.o. contrast this morning to reevaluate. Dr. Rashid will review imaging. Further recommendations pending review of imaging, Dr. Rashid did discuss with the patient he may need additional surgical intervention pending imaging results. Continue to closely monitor. VS,Fishbone, I+O VS, Fishbone, I+O Laboratory Tests 01/18/21 05:58 Vital Signs Date Time Temp Pulse Resp B/P (MAP) Pulse Ox O2 Delivery O2 Flow Rate FiO2 01/18/21 07:15 17 01/18/21 06:00 97.5 100 128/76 (93) 96 Room Air I&O- Last 24 Hours up to 6 AM 01/18/21 05:59 Output Total 1125 ml Balance -1125 ml Matilde Trivedi Jan 18, 2021 08:37
[2021-01-18] MEDS: GASTROGRAFIN SOLUTION 30ML PO SCH ×2 (08:58→09:38)
--- NOTE | 2021-01-18 09:20 | REP ---
INDICATION: ffup sbo COMPARISON: CT dated 01/14/2021 TECHNIQUE: Supine view of the abdomen and pelvis. FINDINGS: Continued evidence for high-grade small bowel obstruction. IMPRESSION: High-grade small bowel obstruction unchanged from CT dated 01/14/2021. <Electronically signed by Marcelino Joshua > 01/18/21 0916
[2021-01-18 10:00] VITALS: BP 126/77
[2021-01-18] MEDS ORDERED: ISOVUE-370 76% 100ML VIAL As Ordered ONE (10:45)
[2021-01-18] MEDS: LevoFLOXacin IV 750 MG in IV 1 EA IV SCH (11:26)
--- NOTE | 2021-01-18 12:43 | REP ---
INDICATION: abdominal distention. COMPARISON: Multiple the latest 01/14/2021 TECHNIQUE: Standard helical technique after intravenous contrast administration. 100 cc Isovue 370 was utilized. FINDINGS: There is no significant change in appearance of the lung bases. Bibasilar subsegmental atelectatic changes are again identified with chronic pleural blebs. The liver, gallbladder, spleen, pancreas, adrenal glands, and kidneys are stable. Tiny hepatic and renal cysts are noted status quo. The abdominal aorta and para-aortic regions are essentially unchanged. No adenopathy has developed. There is no evidence of free intraperitoneal air. Multiple gas and fluid-filled dilated small bowel loops are again seen in the abdomen and pelvis. There is free fluid in the paracolic gutters. A nasogastric tube is again seen with its tip in the stomach. The central mesenteric abscess seen on the 01/05/2021 exam which was surgically evacuated with only free fluid seen in the region on the 01/14/2021 exam is now seen with evidence of developing enhancing weller and a single air density seen within this fluid collection. This measures roughly 8 x 6 cm. This extends to and includes the anterior surface of the left psoas muscle at the level of the inferior pole of the left kidney. This represents a change from the prior exam. Additionally, the free fluid seen previously in the pelvis now has an enhancing wall without abnormal air density within it. This measures roughly 14 x 9 cm. There is contrast seen within the rectum. There is no change in appearance of the osseous structures. IMPRESSION: 1. 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 2. The free pelvic fluid collection seen on the prior exam now has an enhancing wall which is highly concerning for a developing abscess although no abnormal air densities are seen within this fluid collection which is of mixed density at this time. 3. Partial small bowel obstruction versus significant ileus as described above. 4. Other findings as described above. <Electronically signed by Jamie Juárez > 01/18/21 [id number]
[2021-01-18] MEDS: SODIUM CHLORIDE 0.9% INJ 10 ML SYR IV PRN (13:15)
[2021-01-18 14:00] VITALS: BP 121/76
[2021-01-18 18:00] VITALS: BP 136/81
[2021-01-18] MEDS ORDERED: FAT EMULSION IV 20% 500 ML IV SCH (18:00)
[2021-01-18] MEDS ORDERED: AMINO AC/ELECTROLYTE/DEX/CALC 2,000 ML IV SCH (18:00)
[2021-01-18 22:00] VITALS: BP 132/90
[2021-01-19] VITALS (7 sets, daily range): BP systolic 108–144; BP diastolic 72–84
[2021-01-19] MEDS: NORCO, ANEXSIA 5/325MG TABLET (HYDROcodone/ACETAMINOPHEN) PO PRN ×4 (00:14→20:17)
[2021-01-19] MEDS: HumaLOG INSULIN (NovoLOG) PER UNIT SC SCH ×4 (00:15→18:00)
[2021-01-19] MEDS: SODIUM CHLORIDE 0.9% INJ 10 ML SYR IV SCH ×2 (06:20→18:00)
[2021-01-19] MEDS: NICOTINE 14 MG/24 HR TRANSDERMAL TD SCH (08:01)
[2021-01-19] MEDS: ENOXAPARIN 40MG/0.4ML SYRINGE (J1650 PER 10MG) SC SCH (08:02)
[2021-01-19] MEDS: NICOTINE POLACRILEX 2 MG GUM PO PRN ×2 (09:52→21:24)
[2021-01-19] MEDS: LevoFLOXacin IV 750 MG in IV 1 EA IV SCH (11:02)
[2021-01-19] MEDS ORDERED: LIDOCAINE 1% MDV 20ML VIAL As Ordered ONE (11:43)
[2021-01-19] MEDS: SODIUM CHLORIDE 0.9% INJ 10 ML SYR IV PRN ×2 (13:33→21:29)
[2021-01-19 13:47] LABS: BASO # 0.1 10^3/uL (0.0-0.2); BASO % 0.5 % (0.0-1.0); EOS # 0.1 10^3/uL (0.0-0.5); EOS % 1.2 % (0.0-3.0); HEMATOCRIT 28.6 % (42.0-52.0); HEMOGLOBIN 9.4 g/dl (13.5-17.5); LYMPH # 0.9 10^3/uL (1.5-5.0); LYMPH % 9.4 % (24.0-44.0); MEAN CORPUSCULAR HEMOGLOBIN 32.1 pg (27.0-33.0); MEAN CORPUSCULAR HGB CONC 32.9 g/dl (32.0-36.5); MEAN CORPUSCULAR VOLUME 97.6 fl (80.0-96.0); MONO # 1.5 10^3/uL (0.0-0.8); MONO % 15.8 % (2.0-8.0); NEUTROPHILS # 6.8 10^3/uL (1.5-8.5); NEUTROPHILS % 72.5 % (36.0-66.0); PLATELET COUNT, AUTOMATED 521 10^3/uL (150-450); RED BLOOD COUNT 2.93 10^6/uL (4.30-6.10); WHITE BLOOD COUNT 9.3 10^3/uL (4.0-10.0)
[2021-01-19 14:17] LABS: BLOOD UREA NITROGEN 8 MG/DL (7-18); CALCIUM LEVEL 8.6 MG/DL (8.5-10.1); CARBON DIOXIDE LEVEL 29 MEQ/L (21-32); CHLORIDE LEVEL 99 MEQ/L (98-107); GLOMERULAR FILTRATION RATE > 60.0 (>56); GLUCOSE, FASTING 108 MG/DL (70-100); POTASSIUM SERUM 4.8 MEQ/L (3.5-5.1); SODIUM LEVEL 133 MEQ/L (136-145)
--- NOTE | 2021-01-19 16:37 | REP ---
INDICATION: drain the pelvic abscess. COMPARISON: None. TECHNIQUE: Was performed under the direct supervision of Dr. Hahn. The patient has a history of a 14 x 9 cm fluid collection in the pelvis, with an enhancing wall, seen on a previous CT scan dated 01/18/2021. The risks and benefits of the procedure were explained to the patient and informed consent was obtained. The pelvic fluid collection was localized using ultrasound guidance. The skin was prepped and draped in a sterile fashion. 8 mL of 1% lidocaine was used as a local anesthetic. Using ultrasound guidance, an trocar technique, a 10 Swedish skater APDL catheter was inserted. 250 mL of reddish colored fluid was withdrawn and sent to the lab for analysis. The catheter was affixed to the skin and a sterile dressing was applied. The catheter was connected to a gravity drainage bag. When forming the loop of the catheter the anchoring line was pulled in the usual fashion, however, the line must not had been anchored at the end of the catheter and pulled completely out. Under ultrasound we were able to see that the loop at the end of the catheter did form but may be able to be pulled out easily. The patient tolerated the procedure well and there were no immediate complications. FINDINGS: Pelvic abscess. IMPRESSION: Ultrasound-guided pelvic abscess drain with catheter placement. <Electronically signed by Kian Morales > 01/19/21 1556 <Electronically signed by Contreras Hahn > 01/19/21 [id number]
[2021-01-19] MEDS ORDERED: FAT EMULSION IV 20% 500 ML IV SCH (18:00)
[2021-01-19] MEDS ORDERED: MULTIVITAMIN -ADULT INJECTION 10 ML, ZINC/COPPER/MANGANESE/SELENIUM 1 ML in AMINO AC/EL... IV SCH (18:00)
[2021-01-19] MEDS: PIPERACILLIN/TAZOBACTAM SOD 3.375 GM in D5W MINI-BAG PLUS 50 ML IV SCH (18:49)
[2021-01-20] MEDS: HumaLOG INSULIN (NovoLOG) PER UNIT SC SCH ×4 (00:34→17:33)
[2021-01-20] MEDS: PIPERACILLIN/TAZOBACTAM SOD 3.375 GM in D5W MINI-BAG PLUS 50 ML IV SCH ×4 (00:37→17:34)
[2021-01-20 02:00] VITALS: BP 111/69
[2021-01-20] MEDS: SODIUM CHLORIDE 0.9% INJ 10 ML SYR IV PRN (02:04)
[2021-01-20 06:00] VITALS: BP 113/70
[2021-01-20] MEDS: NORCO, ANEXSIA 5/325MG TABLET (HYDROcodone/ACETAMINOPHEN) PO PRN ×3 (06:01→18:37)
[2021-01-20 07:20] LABS: BASO # 0.1 10^3/uL (0.0-0.2); BASO % 0.8 % (0.0-1.0); EOS # 0.3 10^3/uL (0.0-0.5); EOS % 3.2 % (0.0-3.0); HEMATOCRIT 27.9 % (42.0-52.0); HEMOGLOBIN 8.9 g/dl (13.5-17.5); LYMPH # 1.2 10^3/uL (1.5-5.0); LYMPH % 15.2 % (24.0-44.0); MEAN CORPUSCULAR HEMOGLOBIN 31.4 pg (27.0-33.0); MEAN CORPUSCULAR HGB CONC 31.9 g/dl (32.0-36.5); MEAN CORPUSCULAR VOLUME 98.6 fl (80.0-96.0); MONO # 1.3 10^3/uL (0.0-0.8); MONO % 16.1 % (2.0-8.0); NEUTROPHILS # 4.9 10^3/uL (1.5-8.5); NEUTROPHILS % 63.7 % (36.0-66.0); PLATELET COUNT, AUTOMATED 516 10^3/uL (150-450); RED BLOOD COUNT 2.83 10^6/uL (4.30-6.10); WHITE BLOOD COUNT 7.8 10^3/uL (4.0-10.0)
[2021-01-20] MEDS: SODIUM CHLORIDE 0.9% INJ 10 ML SYR IV SCH ×2 (07:32→17:33)
[2021-01-20 07:50] LABS: BLOOD UREA NITROGEN 6 MG/DL (7-18); CALCIUM LEVEL 8.3 MG/DL (8.5-10.1); CARBON DIOXIDE LEVEL 28 MEQ/L (21-32); CHLORIDE LEVEL 101 MEQ/L (98-107); CREATININE FOR GFR 0.72 MG/DL (0.70-1.30); GLOMERULAR FILTRATION RATE > 60.0 (>56); GLUCOSE, FASTING 102 MG/DL (70-100); POTASSIUM SERUM 4.3 MEQ/L (3.5-5.1); SODIUM LEVEL 137 MEQ/L (136-145)
[2021-01-20] MEDS: NICOTINE 14 MG/24 HR TRANSDERMAL TD SCH (08:53)
[2021-01-20] MEDS: ENOXAPARIN 40MG/0.4ML SYRINGE (J1650 PER 10MG) SC SCH (08:54)
[2021-01-20] MEDS: NICOTINE POLACRILEX 2 MG GUM PO PRN ×3 (08:54→16:48)
[2021-01-20 10:00] VITALS: BP 112/2
[2021-01-20] MEDS: LevoFLOXacin IV 750 MG in IV 1 EA IV SCH (11:00)
[2021-01-20] MEDS: SIMETHICONE 80MG CHEW TAB PO SCH ×3 (12:24→21:19)
[2021-01-20 14:00] VITALS: BP 113/73
--- NOTE | 2021-01-20 16:12 | IPN ---
PROGRESS NOTE DATE: 01/20/2021 SUBJECTIVE: The patient admitted with diverticulitis and had a drainage procedure performed yesterday and this was very purulent but also bloody drainage. It is only recorded as 250 but the patient states it was at least 300 mL left to get out at the time of the procedure and they had about 80 mL of bloody purulent drainage out overnight. His vital signs have been stable overnight and his urine output has still been very good. He feels quite distended but he states that his ostomy seems to be starting to work a little bit more than it was previously. He states that he is a little less distended than he was previously but still has significant bloating and distention present. IMPRESSION/PLAN: The patient has still an ileus associated with his abscess and this may be slowly resolving and we will just see with drainage if this continues to improve. I have asked the patient to increase his activity and we will continue him on his current antibiotics and TPN and then we will see how he does over the ensuing 24-48 hours. If he starts to slow down with his drainage or he has a temperature spike or does not seem to be continuing to resolve his ileus, then we may proceed with a repeat CT scan over the weekend.
[2021-01-20 18:00] VITALS: BP 115/74
[2021-01-20] MEDS ORDERED: AMINO AC/ELECTROLYTE/DEX/CALC 2,000 ML IV SCH (18:00)
[2021-01-20] MEDS ORDERED: FAT EMULSION IV 20% 500 ML IV SCH (18:00)
[2021-01-20 22:00] VITALS: BP 118/77
[2021-01-21] MEDS: HumaLOG INSULIN (NovoLOG) PER UNIT SC SCH ×4 (00:33→16:31)
[2021-01-21] MEDS: PIPERACILLIN/TAZOBACTAM SOD 3.375 GM in D5W MINI-BAG PLUS 50 ML IV SCH ×4 (00:37→17:43)
[2021-01-21] MEDS: NORCO, ANEXSIA 5/325MG TABLET (HYDROcodone/ACETAMINOPHEN) PO PRN ×4 (00:40→19:05)
[2021-01-21 02:00] VITALS: BP 112/70
[2021-01-21] MEDS: SODIUM CHLORIDE 0.9% INJ 10 ML SYR IV PRN (02:19)
[2021-01-21 06:00] VITALS: BP 128/80
[2021-01-21 06:25] LABS: BASO # 0.1 10^3/uL (0.0-0.2); BASO % 1.1 % (0.0-1.0); EOS # 0.4 10^3/uL (0.0-0.5); EOS % 6.9 % (0.0-3.0); HEMATOCRIT 28.3 % (42.0-52.0); HEMOGLOBIN 8.8 g/dl (13.5-17.5); LYMPH # 1.1 10^3/uL (1.5-5.0); MEAN CORPUSCULAR HEMOGLOBIN 30.8 pg (27.0-33.0); MEAN CORPUSCULAR HGB CONC 31.1 g/dl (32.0-36.5); NEUTROPHILS # 3.6 10^3/uL (1.5-8.5); NEUTROPHILS % 57.9 % (36.0-66.0); PLATELET COUNT, AUTOMATED 513 10^3/uL (150-450); RED BLOOD COUNT 2.86 10^6/uL (4.30-6.10); WHITE BLOOD COUNT 6.2 10^3/uL (4.0-10.0)
[2021-01-21] MEDS: NICOTINE POLACRILEX 2 MG GUM PO PRN ×3 (06:49→21:17)
[2021-01-21 06:53] LABS: BLOOD UREA NITROGEN 7 MG/DL (7-18); C REACTIVE PROTEIN QUANTITATIV 9.65 MG/DL (0.00-0.30); CALCIUM LEVEL 8.4 MG/DL (8.5-10.1); CARBON DIOXIDE LEVEL 29 MEQ/L (21-32); CHLORIDE LEVEL 103 MEQ/L (98-107); CREATININE FOR GFR 0.71 MG/DL (0.70-1.30); GLOMERULAR FILTRATION RATE > 60.0 (>56); GLUCOSE, FASTING 103 MG/DL (70-100); POTASSIUM SERUM 4.1 MEQ/L (3.5-5.1); SODIUM LEVEL 138 MEQ/L (136-145)
[2021-01-21] MEDS: SODIUM CHLORIDE 0.9% INJ 10 ML SYR IV SCH ×2 (07:26→17:43)
[2021-01-21] MEDS: SIMETHICONE 80MG CHEW TAB PO SCH ×4 (09:01→21:15)
[2021-01-21] MEDS: ENOXAPARIN 40MG/0.4ML SYRINGE (J1650 PER 10MG) SC SCH (09:01)
[2021-01-21] MEDS: NICOTINE 14 MG/24 HR TRANSDERMAL TD SCH (09:02)
[2021-01-21 10:00] VITALS: BP 127/79
[2021-01-21] MEDS: LevoFLOXacin IV 750 MG in IV 1 EA IV SCH (11:09)
--- NOTE | 2021-01-21 11:13 | IPN ---
PROGRESS NOTE DATE: 01/21/2021 SUBJECTIVE: The patient has still been afebrile and overall his white count has been normal. He still had some continued drainage out of his [employer] drain. Fortunately his C-reactive protein seems to be coming down nicely implying that his overall inflammatory process seems to be improving. His ostomy site seems to be putting out air as well as liquid stool but it is still very minimal at this time. He has had no fevers or chills. Overall his abd is slightly less distended than it was yesterday but still tympanitic. IMPRESSION/PLAN: The patient has some slow but progression in improvement and at this point I anticipate that if he has increased improvement over the next 24-48 hours we may be able to start him on clear liquid diet again and we will see how he does with that; but we will continue with his TPN for now and continue with supportive care.
[2021-01-21 14:00] VITALS: BP 120/81
[2021-01-21] MEDS ORDERED: FAT EMULSION IV 20% 500 ML IV SCH (18:00)
[2021-01-21] MEDS ORDERED: MULTIVITAMIN -ADULT INJECTION 10 ML, ZINC/COPPER/MANGANESE/SELENIUM 1 ML in AMINO AC/EL... IV SCH (18:00)
[2021-01-21 22:00] VITALS: BP 120/81
[2021-01-22] MEDS: PIPERACILLIN/TAZOBACTAM SOD 3.375 GM in D5W MINI-BAG PLUS 50 ML IV SCH ×4 (00:12→17:55)
[2021-01-22] MEDS: HumaLOG INSULIN (NovoLOG) PER UNIT SC SCH ×4 (00:12→18:00)
[2021-01-22] MEDS: NORCO, ANEXSIA 5/325MG TABLET (HYDROcodone/ACETAMINOPHEN) PO PRN ×4 (01:12→20:22)
[2021-01-22 06:00] VITALS: BP 132/85
[2021-01-22] MEDS: NICOTINE POLACRILEX 2 MG GUM PO PRN ×3 (06:12→12:04)
[2021-01-22] MEDS: SODIUM CHLORIDE 0.9% INJ 10 ML SYR IV SCH ×2 (06:25→17:56)
[2021-01-22] MEDS: NICOTINE 14 MG/24 HR TRANSDERMAL TD SCH (07:30)
[2021-01-22] MEDS: SIMETHICONE 80MG CHEW TAB PO SCH ×4 (07:31→20:21)
[2021-01-22] MEDS: ENOXAPARIN 40MG/0.4ML SYRINGE (J1650 PER 10MG) SC SCH (07:31)
[2021-01-22 09:25] LABS: BASO # 0.1 10^3/uL (0.0-0.2); BASO % 0.9 % (0.0-1.0); EOS # 0.6 10^3/uL (0.0-0.5); EOS % 7.2 % (0.0-3.0); HEMATOCRIT 32.6 % (42.0-52.0); HEMOGLOBIN 10.2 g/dl (13.5-17.5); LYMPH # 1.2 10^3/uL (1.5-5.0); LYMPH % 13.8 % (24.0-44.0); MEAN CORPUSCULAR HEMOGLOBIN 30.9 pg (27.0-33.0); MEAN CORPUSCULAR HGB CONC 31.3 g/dl (32.0-36.5); MEAN CORPUSCULAR VOLUME 98.8 fl (80.0-96.0); MONO % 12.3 % (2.0-8.0); NEUTROPHILS # 5.4 10^3/uL (1.5-8.5); PLATELET COUNT, AUTOMATED 638 10^3/uL (150-450); WHITE BLOOD COUNT 8.5 10^3/uL (4.0-10.0)
[2021-01-22 09:39] LABS: BLOOD UREA NITROGEN 7 MG/DL (7-18); C REACTIVE PROTEIN QUANTITATIV 7.11 MG/DL (0.00-0.30); CALCIUM LEVEL 8.8 MG/DL (8.5-10.1); CARBON DIOXIDE LEVEL 29 MEQ/L (21-32); CHLORIDE LEVEL 103 MEQ/L (98-107); CREATININE FOR GFR 0.82 MG/DL (0.70-1.30); GLOMERULAR FILTRATION RATE > 60.0 (>56); GLUCOSE, FASTING 119 MG/DL (70-100); POTASSIUM SERUM 4.3 MEQ/L (3.5-5.1); SODIUM LEVEL 136 MEQ/L (136-145)
[2021-01-22 10:00] VITALS: BP 120/82
[2021-01-22] MEDS: LevoFLOXacin IV 750 MG in IV 1 EA IV SCH (11:57)
--- NOTE | 2021-01-22 12:38 | IPN ---
PROGRESS NOTE DATE: 01/22/2021 SUBJECTIVE: The patient overall is stable, doing well. He has been afebrile. He has been ambulating nicely in the hallways. He had a little bit of stool out of his bag yesterday, late afternoon, mostly liquid stool. His AMEENA drain seems to be continuing with drainage but overall no other significant improvements. He still has some distention, although he states his distention is about the same, it looks as though it might be a little bit better. PLAN: I do feel that if he does not have improvement by tomorrow we will repeat his CT scan, make sure there is not some other abnormality or some other abscess that is contributing to this process. He states he is hearing a lot more gurgling and feels as though there is definitely more action going on intraabdominal at this time. Will continue with TPN and fluids and antibiotics at this time.
[2021-01-22 14:00] VITALS: BP 119/82
[2021-01-22 18:00] VITALS: BP 129/85
[2021-01-22] MEDS ORDERED: AMINO AC/ELECTROLYTE/DEX/CALC 2,000 ML IV SCH (18:00)
[2021-01-22] MEDS ORDERED: FAT EMULSION IV 20% 500 ML IV SCH (18:00)
[2021-01-22 22:00] VITALS: BP 129/84
[2021-01-23] MEDS: HumaLOG INSULIN (NovoLOG) PER UNIT SC SCH ×3 (00:03→11:49)
[2021-01-23] MEDS: PIPERACILLIN/TAZOBACTAM SOD 3.375 GM in D5W MINI-BAG PLUS 50 ML IV SCH ×4 (00:03→17:24)
[2021-01-23 02:00] VITALS: BP 118/80
[2021-01-23] MEDS: NORCO, ANEXSIA 5/325MG TABLET (HYDROcodone/ACETAMINOPHEN) PO PRN ×4 (02:33→21:00)
[2021-01-23 06:00] VITALS: BP 115/77
[2021-01-23] MEDS: SODIUM CHLORIDE 0.9% INJ 10 ML SYR IV SCH ×2 (06:56→17:24)
[2021-01-23] MEDS: SIMETHICONE 80MG CHEW TAB PO SCH ×4 (08:17→20:59)
[2021-01-23] MEDS: NICOTINE 14 MG/24 HR TRANSDERMAL TD SCH (08:17)
[2021-01-23] MEDS: ENOXAPARIN 40MG/0.4ML SYRINGE (J1650 PER 10MG) SC SCH (08:18)
[2021-01-23] MEDS: NICOTINE POLACRILEX 2 MG GUM PO PRN (08:18)
[2021-01-23 10:00] VITALS: BP 131/87
[2021-01-23] MEDS: LevoFLOXacin IV 750 MG in IV 1 EA IV SCH (10:30)
[2021-01-23 14:00] VITALS: BP 125/86
--- NOTE | 2021-01-23 14:22 | IPN ---
PROGRESS NOTE DATE: 01/23/2021 SUBJECTIVE: Patient seems to be making some progress. His ostomy is working nicely today, or at least working better than it was yesterday. Has some minimal air within it, but definitely has some stool coming out and his drainage has slowed down a bit and overall he has been stable. His vitals have been good. His white count has been normal and abdomen has been softly distended, slightly less than it was as few days ago, but still tympanitic. IMPRESSION/PLAN: Patient has what appears to be slowly resolving ileus associated with this postoperative infected hematoma/abscess and, at this point, my recommendation is that he start on some sips of clears. We will see how he does with this and we will get a followup CAT scan tomorrow to make sure that the abscess/abscesses are resolving and determine our next course of action based on that.
[2021-01-23 18:00] VITALS: BP 124/84
[2021-01-23 22:00] VITALS: BP 124/83
[2021-01-24] MEDS: PIPERACILLIN/TAZOBACTAM SOD 3.375 GM in D5W MINI-BAG PLUS 50 ML IV SCH ×5 (00:28→23:56)
[2021-01-24] MEDS: SODIUM CHLORIDE 0.9% INJ 10 ML SYR IV PRN (01:52)
[2021-01-24 02:00] VITALS: BP 120/77
[2021-01-24] MEDS: NORCO, ANEXSIA 5/325MG TABLET (HYDROcodone/ACETAMINOPHEN) PO PRN ×4 (05:36→23:57)
[2021-01-24 06:00] VITALS: BP 140/85
[2021-01-24] MEDS: SODIUM CHLORIDE 0.9% INJ 10 ML SYR IV SCH ×2 (06:19→16:46)
[2021-01-24] MEDS: GASTROGRAFIN SOLUTION 30ML PO SCH ×2 (07:30→08:38)
[2021-01-24] MEDS: SIMETHICONE 80MG CHEW TAB PO SCH ×4 (08:37→20:29)
[2021-01-24] MEDS: ENOXAPARIN 40MG/0.4ML SYRINGE (J1650 PER 10MG) SC SCH (08:37)
[2021-01-24] MEDS: NICOTINE 14 MG/24 HR TRANSDERMAL TD SCH (08:38)
[2021-01-24] MEDS ORDERED: ISOVUE-370 76% 100ML VIAL As Ordered ONE (09:17)
[2021-01-24 10:00] VITALS: BP 128/86
--- NOTE | 2021-01-24 10:13 | IPNPDOC ---
Text Note Date of Service The patient was seen on 01/24/21. NOTE General surgery. Dr. Freed The patient is a 60-year-old male status post exploratory laparotomy with drainage of abscess and sigmoid colectomy with end colostomy as per Dr. Freed 01/06/2021. Status post abscess drain placement 01/19/2021 with culture kaitlin cating heavy E. coli and Proteus both sensitive to Zosyn/Levaquin. CT abdomen/pelvis is ordered for this morning to reassess abscess. Imaging is pending at this time. Temperature 98.3 Heart rate 91, respiratory rate 18, blood pressure 140/85, 98% room air. The patient is awake and alert, conversive, sitting up in bed. Appears comfortable, no acute distress. MMM Respirations are easy, no wheezing noted. S1-S2 regular rate rhythm Abdomen still with some distention, he is having output from the ostomy, output is not recorded. Left lower abdomen drain, 40 mL output recorded yesterday, 60 mL so far today. No edema. No new labs Assessment/plan Status post exploratory laparotomy with drainage of abscess and sigmoid colectomy with end colostomy as per Dr. Freed 01/06/2021. Status post abscess drain placement 01/19/2021. The patient is reviewed and examined as per Dr. Freed this morning. Currently n.p.o. with ice chips/sips IV Zosyn/Levaquin Plan for CT abdomen/pelvis this morning, further recommendations pending review of imaging as per Dr. Freed. VS,Fishbone, I+O VS, Fishbone, I+O Vital Signs Date Time Temp Pulse Resp B/P (MAP) Pulse Ox O2 Delivery O2 Flow Rate FiO2 01/24/21 06:06 18 Room Air 01/24/21 06:00 98.3 91 140/85 (103) 98 I&O- Last 24 Hours up to 6 AM 01/24/21 05:59 Intake Total 970 ml Output Total 2415 ml Balance -1445 ml Matilde Trivedi Jan 24, 2021 10:09
--- NOTE | 2021-01-24 10:29 | REP ---
INDICATION: abscess. COMPARISON: None TECHNIQUE: Axial contrast-enhanced images from the lung bases to the pubic symphysis using 100 cc Isovue 370 intravenous contrast material. . This CT examination was performed using the following dose reduction techniques: Automated exposure control, adjustment of mA and/or kv according to the patient's size, and the use of iterative reconstruction technique. FINDINGS: Dilated fluid-filled small bowel suggesting element of obstruction likely secondary to an area of chronic stricture ring in the lower midline abdomen (images 80-100). No free air to suggest perforation. Further evaluation of the enteric system demonstrates ostomy via the left anterior abdominal wall. Pigtail catheter via anterior midline pelvic approach extends into a complex rim enhancing collection in the rectovesical space which is decreased in size from prior examination and currently measures approximately 10.8 x 5.6 x 3.0 cm. Liver, spleen, pancreas, gallbladder, bilateral adrenal glands and kidneys are essentially stable/normal. Hepatic and left renal hypodensities again noted and consistent with small cysts. Further evaluation of the pelvis demonstrates normal bladder. No ascites. No free air. No obvious adenopathy. Abdominal aorta without aneurysm or dissection. Musculoskeletal structures demonstrate stable degenerative changes. Lung bases demonstrate mild bibasilar atelectasis. IMPRESSION: 1. Abscess in the deep pelvis with pigtail catheter in satisfactory position slightly decreased in size from prior examination. 2. Continued dilated fluid-filled bowel suggesting element of obstruction. No free air to suggest perforation. 3. Nonacute stable findings as above. 4. Mild bibasilar atelectasis. <Electronically signed by Marcelino Joshua > 01/24/21 [id number]
[2021-01-24 14:00] VITALS: BP 128/88
[2021-01-24] MEDS: HumaLOG INSULIN (NovoLOG) PER UNIT SC SCH ×2 (16:45→23:56)
[2021-01-24 18:00] VITALS: BP 129/88
[2021-01-24] MEDS ORDERED: FAT EMULSION IV 20% 500 ML IV SCH (18:00)
[2021-01-24] MEDS ORDERED: AMINO AC/ELECTROLYTE/DEX/CALC 2,000 ML IV SCH (18:00)
[2021-01-24] MEDS ORDERED: FAT EMULSION 20% IV SCH (20:00)
[2021-01-24] MEDS: NICOTINE POLACRILEX 2 MG GUM PO PRN (20:29)
[2021-01-24 22:00] VITALS: BP 128/88
[2021-01-25] MEDS: SODIUM CHLORIDE 0.9% INJ 10 ML SYR IV PRN ×2 (01:25→12:54)
[2021-01-25 02:15] VITALS: BP 110/73
[2021-01-25 06:00] VITALS: BP 113/74
[2021-01-25] MEDS: PIPERACILLIN/TAZOBACTAM SOD 3.375 GM in D5W MINI-BAG PLUS 50 ML IV SCH ×4 (06:19→23:45)
[2021-01-25] MEDS: HumaLOG INSULIN (NovoLOG) PER UNIT SC SCH ×4 (06:20→23:46)
[2021-01-25] MEDS: NORCO, ANEXSIA 5/325MG TABLET (HYDROcodone/ACETAMINOPHEN) PO PRN ×3 (06:21→20:32)
[2021-01-25 07:30] VITALS: BP 113/75
[2021-01-25] MEDS: SIMETHICONE 80MG CHEW TAB PO SCH ×4 (08:33→20:29)
[2021-01-25] MEDS: NICOTINE 14 MG/24 HR TRANSDERMAL TD SCH (08:34)
[2021-01-25] MEDS: SODIUM CHLORIDE 0.9% INJ 10 ML SYR IV SCH ×2 (08:34→18:09)
[2021-01-25] MEDS: ENOXAPARIN 40MG/0.4ML SYRINGE (J1650 PER 10MG) SC SCH (08:34)
[2021-01-25] MEDS ORDERED: MAGNESIUM CITRATE 300 ML BTL PO ONE (08:35)
[2021-01-25] MEDS: NICOTINE POLACRILEX 2 MG GUM PO PRN ×2 (08:40→12:55)
--- NOTE | 2021-01-25 08:56 | IPNPDOC ---
Text Note Date of Service The patient was seen on 01/25/21. NOTE General surgery. Dr. Freed The patient is a 60-year-old male status post exploratory laparotomy with drainage of abscess and sigmoid colectomy with end colostomy as per Dr. Freed 01/06/2021. Status post abscess drain placement 01/19/2021 with culture kaitlin cating heavy E. coli and Proteus both sensitive to Zosyn/Levaquin. This morning, the patient states he is still having liquid output from the ostomy, reports not much flatus. States he still has some rumbling in the evening around 7:54 PM. States he is drinking about 2 cups of water, one apple juice and 1 zoila rey per day. Overnight he had a lot of drainage in the bag from the abscess drain. Afebrile. VSS. Awake and alert, sitting on the side of the bed, conversive, appears in no acute distress. Sclera nonicteric, MMM Respirations are easy, no wheezing. S1-S2 regular rate rhythm Abdomen still with distention but soft, no areas of tenderness. Liquid stool noted from the ostomy, the patient has already emptied his ostomy bag this morning. Output is not recorded. Left lower abdominal drain with large amount of dark red drainage in the bag. No edema No new labs. Will update CBC/BMP Assessment/plan Status post exploratory laparotomy with drainage of abscess and sigmoid colectomy with end colostomy as per Dr. Freed 01/06/2021. Status post abscess drain placement 01/19/2021. The patient is reviewed and examined as per Dr. Freed this morning. CT abdomen/pelvis 01/24/[address] Freed as well. Abscess was noted in the deep pelvis with catheter in satisfactory position. 1 abscess was noted this time measuring 10.8 x 5.6 x 3.0. Report indicated the drain was in satisfactory position however there had not been much output in the drain. However, this morning there is a large amount of drainage noted in the bag. Plan is to try some p.o. laxatives and laxatives through the ostomy to see if this helps with output. Currently continue ice chips/sips until there is more output from the ostomy. IV Zosyn/Levaquin. Continue to encourage ambulation. Continue to monitor. VS,Fishbone, I+O VS, Fishbone, I+O Vital Signs Date Time Temp Pulse Resp B/P (MAP) Pulse Ox O2 Delivery O2 Flow Rate FiO2 01/25/21 06:21 16 Room Air 01/25/21 06:00 98.8 98 113/74 (87) 95 I&O- Last 24 Hours up to 6 AM 01/25/21 06:00 Intake Total 2150 ml Output Total 1315 ml Balance 835 ml Matilde Trivedi Jan 25, 2021 08:56
[2021-01-25 09:50] LABS: HEMATOCRIT 32.9 % (42.0-52.0); HEMOGLOBIN 10.4 g/dl (13.5-17.5); MEAN CORPUSCULAR HGB CONC 31.6 g/dl (32.0-36.5); MEAN CORPUSCULAR VOLUME 98.2 fl (80.0-96.0); PLATELET COUNT, AUTOMATED 673 10^3/uL (150-450); RED BLOOD COUNT 3.35 10^6/uL (4.30-6.10); WHITE BLOOD COUNT 10.8 10^3/uL (4.0-10.0)
[2021-01-25 10:16] LABS: BLOOD UREA NITROGEN 10 MG/DL (7-18); CARBON DIOXIDE LEVEL 28 MEQ/L (21-32); CHLORIDE LEVEL 103 MEQ/L (98-107); CREATININE FOR GFR 0.94 MG/DL (0.70-1.30); GLOMERULAR FILTRATION RATE > 60.0 (>56); GLUCOSE, FASTING 104 MG/DL (70-100); POTASSIUM SERUM 4.4 MEQ/L (3.5-5.1); SODIUM LEVEL 136 MEQ/L (136-145)
[2021-01-25] MEDS: BISACODYL 10 MG SUPP XX SCH ×2 (10:27→20:29)
[2021-01-25 13:30] VITALS: BP 115/79
[2021-01-25] MEDS ORDERED: FAT EMULSION IV 20% 500 ML IV SCH (18:00)
[2021-01-25] MEDS ORDERED: AMINO AC/ELECTROLYTE/DEX/CALC 2,000 ML IV SCH (18:00)
[2021-01-25 22:00] VITALS: BP 121/77
[2021-01-26] VITALS (7 sets, daily range): BP systolic 113–126; BP diastolic 72–83
[2021-01-26] MEDS: PIPERACILLIN/TAZOBACTAM SOD 3.375 GM in D5W MINI-BAG PLUS 50 ML IV SCH ×3 (05:25→17:27)
[2021-01-26] MEDS: HumaLOG INSULIN (NovoLOG) PER UNIT SC SCH ×3 (05:26→18:02)
[2021-01-26] MEDS: NORCO, ANEXSIA 5/325MG TABLET (HYDROcodone/ACETAMINOPHEN) PO PRN ×3 (06:10→21:17)
[2021-01-26 06:33] LABS: HEMATOCRIT 30.1 % (42.0-52.0); HEMOGLOBIN 9.6 g/dl (13.5-17.5); MEAN CORPUSCULAR HEMOGLOBIN 30.9 pg (27.0-33.0); MEAN CORPUSCULAR HGB CONC 31.9 g/dl (32.0-36.5); MEAN CORPUSCULAR VOLUME 96.8 fl (80.0-96.0); PLATELET COUNT, AUTOMATED 585 10^3/uL (150-450); RED BLOOD COUNT 3.11 10^6/uL (4.30-6.10); WHITE BLOOD COUNT 15.1 10^3/uL (4.0-10.0)
[2021-01-26] MEDS: SODIUM CHLORIDE 0.9% INJ 10 ML SYR IV SCH ×2 (06:48→17:28)
[2021-01-26 06:56] LABS: BLOOD UREA NITROGEN 9 MG/DL (7-18); C REACTIVE PROTEIN QUANTITATIV 4.47 MG/DL (0.00-0.30); CALCIUM LEVEL 8.3 MG/DL (8.5-10.1); CARBON DIOXIDE LEVEL 30 MEQ/L (21-32); CHLORIDE LEVEL 100 MEQ/L (98-107); CREATININE FOR GFR 0.88 MG/DL (0.70-1.30); GLOMERULAR FILTRATION RATE > 60.0 (>56); GLUCOSE, FASTING 109 MG/DL (70-100); POTASSIUM SERUM 4.3 MEQ/L (3.5-5.1); SODIUM LEVEL 136 MEQ/L (136-145)
--- NOTE | 2021-01-26 08:29 | IPNPDOC ---
Text Note Date of Service The patient was seen on 01/26/21. NOTE General surgery. Dr. Freed The patient is a 60-year-old male status post exploratory laparotomy with drainage of abscess and sigmoid colectomy with end colostomy as per Dr. Freed 01/06/2021. Status post abscess drain placement 01/19/2021 with culture indicating heavy E. coli and Proteus both sensitive to Zosyn/Levaquin. The patient states he tolerated laxatives yesterday and had more output from his ostomy. He states he has still not had much flatus in the bag. Liquid stool is noted in the bag this morning. The patient has been emptying the bag himself, output is not recorded. Also had a large amount out from the abscess drainage bag yesterday. He is up ambulating in the halls this morning. Afebrile. Heart rate 114, respiratory rate 16, blood pressure 125/83, 98% room air. The patient is awake and alert, conversive, sitting on the side of the bed. Had been ambulating in the halls MMM Lungs with no wheezing. S1-S2 regular Abdomen is less distended today, less tympanic, soft. Liquid stool noted in the bag. Left lower abdominal drain with small amount of dark red drainage in the bag. No edema WBC 15.1 today, 10.8 yesterday Hemoglobin 9.6 Platelets 585, decreased from 673 yesterday. CRP 4.47 compared with 7.11 01/22. Drain output 380 mL yesterday. 50 mL so far today. Stool output not recorded Assessment/plan Status post exploratory laparotomy with drainage of abscess and sigmoid colectomy with end colostomy as per Dr. Freed 01/06/2021. Status post abscess drain placement 01/19/2021. The patient is reviewed and examined as per Dr. Freed this morning. The patient had p.o. laxatives and laxatives through the stoma yesterday and did note an increase in stool output. Output is not recorded as the patient empties this himself. There was also a large amount of drainage from the abscess drain yesterday, 380 mL. Overall, the patient appears less distended, less tympanic today. The patient remains on TPN today. Diet is advanced to clear liquids. Trial of dicyclomine 10 mg p.o. 3 times daily. Continue IV Zosyn/Levaquin Continue to encourage ambulation Continue to closely monitor VS,Fishbone, I+O VS, Fishbone, I+O Laboratory Tests 01/25/21 09:34 01/26/21 05:49 Vital Signs Date Time Temp Pulse Resp B/P (MAP) Pulse Ox O2 Delivery O2 Flow Rate FiO2 01/26/21 07:56 98.5 114 16 125/83 (97) 98 Room Air I&O- Last 24 Hours up to 6 AM 01/26/21 06:00 Intake Total 2080 ml Output Total 2855 ml Balance -775 ml Matilde Trivedi Jan 26, 2021 08:29
[2021-01-26] MEDS: NICOTINE POLACRILEX 2 MG GUM PO PRN ×2 (10:40→21:16)
[2021-01-26] MEDS: ENOXAPARIN 40MG/0.4ML SYRINGE (J1650 PER 10MG) SC SCH (10:41)
[2021-01-26] MEDS: BISACODYL 10 MG SUPP XX SCH ×2 (10:42→21:20)
[2021-01-26] MEDS: SIMETHICONE 80MG CHEW TAB PO SCH ×4 (10:42→21:17)
[2021-01-26] MEDS: DICYCLOMINE 10 MG CAP PO SCH ×3 (10:42→21:16)
[2021-01-26] MEDS: NICOTINE 14 MG/24 HR TRANSDERMAL TD SCH (10:43)
[2021-01-26] MEDS: SODIUM CHLORIDE 0.9% INJ 10 ML SYR IV PRN (15:28)
[2021-01-26] MEDS ORDERED: FAT EMULSION IV 20% 500 ML IV SCH (18:00)
[2021-01-26] MEDS ORDERED: MULTIVITAMIN -ADULT INJECTION 10 ML, ZINC/COPPER/MANGANESE/SELENIUM 1 ML in AMINO AC/EL... IV SCH (18:00)
[2021-01-27] MEDS: PIPERACILLIN/TAZOBACTAM SOD 3.375 GM in D5W MINI-BAG PLUS 50 ML IV SCH ×5 (00:28→23:47)
[2021-01-27 02:00] VITALS: BP 105/69
[2021-01-27 06:00] VITALS: BP 110/69
[2021-01-27] MEDS: HumaLOG INSULIN (NovoLOG) PER UNIT SC SCH ×5 (06:00→23:47)
[2021-01-27 06:13] LABS: HEMATOCRIT 32.1 % (42.0-52.0); HEMOGLOBIN 10.1 g/dl (13.5-17.5); MEAN CORPUSCULAR HGB CONC 31.5 g/dl (32.0-36.5); MEAN CORPUSCULAR VOLUME 98.5 fl (80.0-96.0); PLATELET COUNT, AUTOMATED 602 10^3/uL (150-450); RED BLOOD COUNT 3.26 10^6/uL (4.30-6.10); WHITE BLOOD COUNT 10.1 10^3/uL (4.0-10.0)
[2021-01-27 06:29] LABS: BLOOD UREA NITROGEN 7 MG/DL (7-18); CALCIUM LEVEL 8.5 MG/DL (8.5-10.1); CARBON DIOXIDE LEVEL 31 MEQ/L (21-32); CHLORIDE LEVEL 105 MEQ/L (98-107); CREATININE FOR GFR 0.83 MG/DL (0.70-1.30); GLOMERULAR FILTRATION RATE > 60.0 (>56); GLUCOSE, FASTING 106 MG/DL (70-100); POTASSIUM SERUM 3.7 MEQ/L (3.5-5.1); SODIUM LEVEL 140 MEQ/L (136-145)
[2021-01-27] MEDS: NORCO, ANEXSIA 5/325MG TABLET (HYDROcodone/ACETAMINOPHEN) PO PRN ×3 (06:55→23:56)
[2021-01-27] MEDS: SODIUM CHLORIDE 0.9% INJ 10 ML SYR IV SCH ×2 (07:28→15:35)
[2021-01-27 08:00] VITALS: BP 110/70
--- NOTE | 2021-01-27 08:41 | IPNPDOC ---
Text Note Date of Service The patient was seen on 01/27/21. NOTE General surgery. Dr. Freed The patient is a 60-year-old male status post exploratory laparotomy with drainage of abscess and sigmoid colectomy with end colostomy as per Dr. Freed 01/06/2021. Status post abscess drain placement 01/19/2021 with culture indicating heavy E. coli and Proteus both sensitive to Zosyn/Levaquin. Morning, the patient states he has been tolerating clear liquids. He is reporting output from his ostomy but still not much gas. He empties the bag himself and has not been recorded but there is 1000 mL stool output recorded yesterday. The patient states he does not tend to have much output from suppository. still having output in the abscess drain. Sitting on the side of the bed, states he has been ambulating in the halls. Temperature 99.3 Heart rate 90, respiratory rate 18, blood pressure 110/70, 96% room air. Awake and alert, sitting on the side of the bed, eating breakfast. Appears in no acute distress. Sclera anicteric, MMM Respirations easy with no wheezing noted. S1-S2 regular rate rhythm Abdomen appears slightly more distended today but soft, no tenderness. Midline incision with edda intact. Liquid stool noted in the bag. Small amount of dark red drainage is noted in the abscess drain bag. No edema 150 mL documented from abscess drain yesterday. Labs this morning indicate WBC 10.1 Assessment/plan Status post exploratory laparotomy with drainage of abscess and sigmoid colectomy with end colostomy as per Dr. Freed 01/06/2021. Status post abscess drain placement 01/19/2021. The patient is reviewed as per Dr. Freed. The patient continues to have output from the ostomy. The patient is tolerating clear liquids, will advance to full liquids. WBC decreased today, 10.1 compared with 15.1 yesterday. Continue with TPN for now Continue IV Zosyn/Levaquin We will discontinue suppository. Patient remains on dicyclomine 10 mg p.o. 3 times daily, simethicone 120 mg p.o. 4 times daily. Continue to encourage ambulation. Continue to closely monitor. VS,Fishbone, I+O VS, Fishbone, I+O Laboratory Tests 01/27/21 05:44 Vital Signs Date Time Temp Pulse Resp B/P (MAP) Pulse Ox O2 Delivery O2 Flow Rate FiO2 01/27/21 08:00 99.3 90 18 110/70 (83) 96 Room Air l I&O- Last 24 Hours up to 6 AM 01/27/21 06:00 Intake Total 4320 ml Output Total 4375 ml Balance -55 ml Matilde Trivedi Jan 27, 2021 08:41
[2021-01-27] MEDS ORDERED: PILL CUTTER 1 EACH XX PRN (09:00)
[2021-01-27] MEDS: SIMETHICONE 80MG CHEW TAB PO SCH ×4 (09:37→21:02)
[2021-01-27] MEDS: DICYCLOMINE 10 MG CAP PO SCH ×3 (09:37→21:01)
[2021-01-27] MEDS: ENOXAPARIN 40MG/0.4ML SYRINGE (J1650 PER 10MG) SC SCH (09:38)
[2021-01-27] MEDS: NICOTINE 14 MG/24 HR TRANSDERMAL TD SCH (09:40)
[2021-01-27] MEDS: NICOTINE POLACRILEX 2 MG GUM PO PRN ×2 (12:25→18:49)
[2021-01-27] MEDS: MIRALAX *UNIT DOSE* 17GM PACKET PO SCH ×2 (13:00→21:02)
[2021-01-27 14:00] VITALS: BP 110/70
[2021-01-27] MEDS ORDERED: AMINO AC/ELECTROLYTE/DEX/CALC 2,000 ML IV SCH (18:00)
[2021-01-27] MEDS ORDERED: FAT EMULSION IV 20% 500 ML IV SCH (18:00)
[2021-01-27 21:00] VITALS: BP 128/86
[2021-01-28 02:00] VITALS: BP 104/58
[2021-01-28] MEDS: SODIUM CHLORIDE 0.9% INJ 10 ML SYR IV SCH ×2 (05:11→18:27)
[2021-01-28] MEDS: PIPERACILLIN/TAZOBACTAM SOD 3.375 GM in D5W MINI-BAG PLUS 50 ML IV SCH ×3 (05:11→17:00)
[2021-01-28 06:00] VITALS: BP 104/74
[2021-01-28] MEDS: HumaLOG INSULIN (NovoLOG) PER UNIT SC SCH ×3 (06:00→18:00)
[2021-01-28 06:09] LABS: HEMATOCRIT 32.1 % (42.0-52.0); MEAN CORPUSCULAR HEMOGLOBIN 30.5 pg (27.0-33.0); MEAN CORPUSCULAR HGB CONC 31.2 g/dl (32.0-36.5); MEAN CORPUSCULAR VOLUME 97.9 fl (80.0-96.0); PLATELET COUNT, AUTOMATED 587 10^3/uL (150-450); RED BLOOD COUNT 3.28 10^6/uL (4.30-6.10); WHITE BLOOD COUNT 9.8 10^3/uL (4.0-10.0)
[2021-01-28 06:33] LABS: BLOOD UREA NITROGEN 8 MG/DL (7-18); CALCIUM LEVEL 8.9 MG/DL (8.5-10.1); CARBON DIOXIDE LEVEL 31 MEQ/L (21-32); CHLORIDE LEVEL 105 MEQ/L (98-107); GLOMERULAR FILTRATION RATE > 60.0 (>56); GLUCOSE, FASTING 100 MG/DL (70-100); SODIUM LEVEL 140 MEQ/L (136-145)
--- NOTE | 2021-01-28 09:22 | IPNPDOC ---
Text Note Date of Service The patient was seen on 01/28/21. NOTE General surgery. Dr. Freed The patient is a 60-year-old male status post exploratory laparotomy with drainage of abscess and sigmoid colectomy with end colostomy as per Dr. Freed 01/06/2021. Status post abscess drain placement 01/19/2021 with culture indicating heavy E. coli and Proteus both sensitive to Zosyn. This morning, the patient is sitting up in bed. He states he has been tolerating full liquids. Still having output from the ostomy. Still having some output from the abscess drain. States he has been ambulating in the halls. Temperature 98.4. Heart rate 84, respiratory rate 18, blood pressure 104/74, 95% room air. Sclera anicteric. Moist mucous membranes. S1-S2 regular rate rhythm Respirations are easy, no wheezing is noted Abdomen is still distended but soft, about the same as yesterday, ostomy still with liquid stool in the bag. Abscess drain is intact, flushed at the bedside this morning as per Dr. Freed. No edema in lower extremities Abscess drain with 90 mL output yesterday. Stool was recorded as 725 mL yesterday. Labs this morning indicate WBC 9.8, continued downward trend. Hemoglobin 10.0, platelets 587. Assessment/plan Status post exploratory laparotomy with drainage of abscess and sigmoid colectomy with end colostomy as per Dr. Freed 01/06/2021. Status post abscess drain placement 01/19/2021. The patient is reviewed as per Dr. Freed. The patient has been tolerating full liquids. He continues to have output from the ostomy. He is continuing to have output into the abscess drainage bag as well, 90 mL output documented yesterday. The drainage tube was flushed with saline this morning as per Dr. Freed. The patient remains afebrile leukocytosis continuing to trend downward. 9.8 this morning. Overall, the patient seems to be slowly improving. We will continue with TPN for today. Continue IV Zosyn. Abscess culture from 01/19/2021 indicated heavy E. coli and Proteus sensitive to Zosyn. Continue with MiraLAX 1 packet twice daily, Bentyl, simethicone. Continue to encourage ambulation. Continue to monitor. VS,Fishbone, I+O VS, Fishbone, I+O Laboratory Tests 01/28/21 05:50 Vital Signs Date Time Temp Pulse Resp B/P (MAP) Pulse Ox O2 Delivery O2 Flow Rate FiO2 01/28/21 06:00 98.4 84 18 104/74 (84) 95 Room Air I&O- Last 24 Hours up to 6 AM 01/28/21 06:00 Intake Total 2570 ml Output Total 3190 ml Balance -620 ml Matilde Trivedi Jan 28, 2021 09:22
[2021-01-28] MEDS: NICOTINE POLACRILEX 2 MG GUM PO PRN (09:23)
[2021-01-28] MEDS: ENOXAPARIN 40MG/0.4ML SYRINGE (J1650 PER 10MG) SC SCH (09:23)
[2021-01-28] MEDS: MIRALAX *UNIT DOSE* 17GM PACKET PO SCH ×2 (09:24→20:26)
[2021-01-28] MEDS: SIMETHICONE 80MG CHEW TAB PO SCH ×4 (09:24→20:26)
[2021-01-28] MEDS: DICYCLOMINE 10 MG CAP PO SCH ×3 (09:24→20:26)
[2021-01-28] MEDS: NICOTINE 14 MG/24 HR TRANSDERMAL TD SCH (09:25)
[2021-01-28] MEDS: NORCO, ANEXSIA 5/325MG TABLET (HYDROcodone/ACETAMINOPHEN) PO PRN ×2 (09:29→17:01)
[2021-01-28 10:00] VITALS: BP 118/72
[2021-01-28 14:00] VITALS: BP 119/79
[2021-01-28] MEDS ORDERED: FAT EMULSION IV 20% 500 ML IV SCH (18:00)
[2021-01-28] MEDS ORDERED: MULTIVITAMIN -ADULT INJECTION 10 ML, ZINC/COPPER/MANGANESE/SELENIUM 1 ML in AMINO AC/EL... IV SCH (18:00)
[2021-01-28 22:00] VITALS: BP 115/76
[2021-01-29] MEDS: NICOTINE POLACRILEX 2 MG GUM PO PRN ×3 (00:22→17:19)
[2021-01-29] MEDS: SODIUM CHLORIDE 0.9% INJ 10 ML SYR IV PRN ×2 (01:43→14:40)
[2021-01-29 02:00] VITALS: BP 116/77
[2021-01-29 06:00] VITALS: BP 115/78
[2021-01-29] MEDS: HumaLOG INSULIN (NovoLOG) PER UNIT SC SCH ×2 (06:20)
[2021-01-29] MEDS: PIPERACILLIN/TAZOBACTAM SOD 3.375 GM in D5W MINI-BAG PLUS 50 ML IV SCH ×6 (06:26→23:12)
[2021-01-29] MEDS: SODIUM CHLORIDE 0.9% INJ 10 ML SYR IV SCH ×2 (06:26→18:45)
[2021-01-29 06:49] LABS: HEMATOCRIT 31.2 % (42.0-52.0); HEMOGLOBIN 9.8 g/dl (13.5-17.5); MEAN CORPUSCULAR HEMOGLOBIN 30.5 pg (27.0-33.0); MEAN CORPUSCULAR HGB CONC 31.4 g/dl (32.0-36.5); MEAN CORPUSCULAR VOLUME 97.2 fl (80.0-96.0); PLATELET COUNT, AUTOMATED 569 10^3/uL (150-450); RED BLOOD COUNT 3.21 10^6/uL (4.30-6.10)
[2021-01-29 07:07] LABS: BLOOD UREA NITROGEN 9 MG/DL (7-18); CALCIUM LEVEL 8.9 MG/DL (8.5-10.1); CARBON DIOXIDE LEVEL 29 MEQ/L (21-32); CHLORIDE LEVEL 105 MEQ/L (98-107); CREATININE FOR GFR 0.82 MG/DL (0.70-1.30); GLOMERULAR FILTRATION RATE > 60.0 (>56); GLUCOSE, FASTING 103 MG/DL (70-100); POTASSIUM SERUM 4.6 MEQ/L (3.5-5.1); SODIUM LEVEL 140 MEQ/L (136-145)
--- NOTE | 2021-01-29 08:30 | IPNPDOC ---
Text Note Date of Service The patient was seen on 01/29/21. NOTE No acute events overnight. He is still having crampy lower abd pains in the late evening. Ostomy is working well, but it is still very loose and without air. The drain had a large volume of output yesterday, and it is starting to clear up some. VSSAF NAD abd - softly distended, non tender, incision c/d/i, drain in place in the pelvis with serosanguinous output labs - below A) 60y/o male with perforated diverticulitis with retroperitoneal and pelvic abscesses that are slowly resolving with a resultant ileus P) FLQ diet abx ambulate monitor abd exam d/c TPN plan for d/c home on liquid diet early next week. Humza Freed DO VS,Leah, I+O VS, Leah, I+O Laboratory Tests 01/29/21 06:04 Vital Signs Date Time Temp Pulse Resp B/P (MAP) Pulse Ox O2 Delivery O2 Flow Rate FiO2 01/29/21 06:00 98.3 88 20 115/78 (90) 96 Room Air I&O- Last 24 Hours up to 6 AM 01/29/21 05:59 Intake Total 2610 ml Output Total 3575 ml Balance -965 ml ARIANA FREED DO Jan 29, 2021 08:30
[2021-01-29] MEDS: SIMETHICONE 80MG CHEW TAB PO SCH ×4 (09:13→20:17)
[2021-01-29] MEDS: MIRALAX *UNIT DOSE* 17GM PACKET PO SCH ×2 (09:14→20:17)
[2021-01-29] MEDS: NICOTINE 14 MG/24 HR TRANSDERMAL TD SCH (09:14)
[2021-01-29] MEDS: ENOXAPARIN 40MG/0.4ML SYRINGE (J1650 PER 10MG) SC SCH (09:14)
[2021-01-29] MEDS: DICYCLOMINE 10 MG CAP PO SCH ×3 (09:15→20:16)
[2021-01-29] MEDS: NORCO, ANEXSIA 5/325MG TABLET (HYDROcodone/ACETAMINOPHEN) PO PRN (09:30)
[2021-01-29 10:00] VITALS: BP 132/82
[2021-01-29 14:00] VITALS: BP 132/90
[2021-01-29 18:00] VITALS: BP 131/90
[2021-01-29 22:00] VITALS: BP 130/89
[2021-01-30] MEDS: SODIUM CHLORIDE 0.9% INJ 10 ML SYR IV PRN (00:32)
[2021-01-30 02:00] VITALS: BP 138/95
[2021-01-30] MEDS: SODIUM CHLORIDE 0.9% INJ 10 ML SYR IV SCH ×2 (05:22→18:00)
[2021-01-30] MEDS: PIPERACILLIN/TAZOBACTAM SOD 3.375 GM in D5W MINI-BAG PLUS 50 ML IV SCH ×4 (05:22→23:56)
[2021-01-30 06:00] VITALS: BP 125/77
[2021-01-30 06:03] LABS: HEMATOCRIT 31.9 % (42.0-52.0); HEMOGLOBIN 9.9 g/dl (13.5-17.5); MEAN CORPUSCULAR HEMOGLOBIN 30.4 pg (27.0-33.0); MEAN CORPUSCULAR VOLUME 97.9 fl (80.0-96.0); PLATELET COUNT, AUTOMATED 529 10^3/uL (150-450); RED BLOOD COUNT 3.26 10^6/uL (4.30-6.10); WHITE BLOOD COUNT 8.7 10^3/uL (4.0-10.0)
[2021-01-30 06:18] LABS: BLOOD UREA NITROGEN 7 MG/DL (7-18); CALCIUM LEVEL 8.9 MG/DL (8.5-10.1); CARBON DIOXIDE LEVEL 29 MEQ/L (21-32); CHLORIDE LEVEL 107 MEQ/L (98-107); CREATININE FOR GFR 0.78 MG/DL (0.70-1.30); GLOMERULAR FILTRATION RATE > 60.0 (>56); GLUCOSE, FASTING 97 MG/DL (70-100); POTASSIUM SERUM 4.7 MEQ/L (3.5-5.1); SODIUM LEVEL 140 MEQ/L (136-145)
--- NOTE | 2021-01-30 08:35 | IPNPDOC ---
Text Note Date of Service The patient was seen on 01/30/21. NOTE No acute events overnight. He is still having crampy lower abd pains in the late evening. Ostomy is working very well, and it is thickening up some. VSSAF NAD abd - softly distended, non tender, incision c/d/i, drain in place in the pelvis with serosanguinous output labs - below A) 60y/o male with perforated diverticulitis with retroperitoneal and pelvic abscesses that are slowly resolving with a resultant ileus P) FLQ diet abx ambulate monitor abd exam plan for d/c home on liquid diet tomorrow Humza Freed DO VS,Fishbone, I+O VS, Fishbone, I+O Laboratory Tests 01/30/21 05:41 Vital Signs Date Time Temp Pulse Resp B/P (MAP) Pulse Ox O2 Delivery O2 Flow Rate FiO2 01/30/21 06:00 97.5 83 19 125/77 (93) 95 Room Air I&O- Last 24 Hours up to 6 AM 01/30/21 06:00 Intake Total 3930 ml Output Total 3290 ml Balance 640 ml ARIANA FREED DO Jan 30, 2021 08:35
[2021-01-30] MEDS: MIRALAX *UNIT DOSE* 17GM PACKET PO SCH ×2 (08:56→21:46)
[2021-01-30] MEDS: NICOTINE 14 MG/24 HR TRANSDERMAL TD SCH (08:57)
[2021-01-30] MEDS: DICYCLOMINE 10 MG CAP PO SCH ×3 (08:58→21:46)
[2021-01-30] MEDS: SIMETHICONE 80MG CHEW TAB PO SCH ×4 (08:59→21:45)
[2021-01-30] MEDS: NICOTINE POLACRILEX 2 MG GUM PO PRN ×2 (08:59→21:46)
[2021-01-30] MEDS: ENOXAPARIN 40MG/0.4ML SYRINGE (J1650 PER 10MG) SC SCH (09:00)
[2021-01-30] MEDS: NORCO, ANEXSIA 5/325MG TABLET (HYDROcodone/ACETAMINOPHEN) PO PRN ×2 (09:01→23:55)
[2021-01-30 10:00] VITALS: BP 137/87
[2021-01-30 14:00] VITALS: BP 131/84
[2021-01-30 18:00] VITALS: BP 132/89
[2021-01-30 22:00] VITALS: BP 130/85
[2021-01-31] MEDS: SODIUM CHLORIDE 0.9% INJ 10 ML SYR IV PRN (01:26)
[2021-01-31 02:00] VITALS: BP 102/68
[2021-01-31 06:00] VITALS: BP 119/84
[2021-01-31] MEDS: PIPERACILLIN/TAZOBACTAM SOD 3.375 GM in D5W MINI-BAG PLUS 50 ML IV SCH (06:08)
[2021-01-31] MEDS: SODIUM CHLORIDE 0.9% INJ 10 ML SYR IV SCH (06:09)
[2021-01-31 07:38] LABS: HEMATOCRIT 33.5 % (42.0-52.0); HEMOGLOBIN 10.5 g/dl (13.5-17.5); MEAN CORPUSCULAR HEMOGLOBIN 30.4 pg (27.0-33.0); MEAN CORPUSCULAR HGB CONC 31.3 g/dl (32.0-36.5); MEAN CORPUSCULAR VOLUME 97.1 fl (80.0-96.0); PLATELET COUNT, AUTOMATED 539 10^3/uL (150-450); RED BLOOD COUNT 3.45 10^6/uL (4.30-6.10); WHITE BLOOD COUNT 8.1 10^3/uL (4.0-10.0)
[2021-01-31 08:07] LABS: BLOOD UREA NITROGEN 6 MG/DL (7-18); CALCIUM LEVEL 9.1 MG/DL (8.5-10.1); CARBON DIOXIDE LEVEL 28 MEQ/L (21-32); CHLORIDE LEVEL 105 MEQ/L (98-107); CREATININE FOR GFR 0.78 MG/DL (0.70-1.30); GLOMERULAR FILTRATION RATE > 60.0 (>56); GLUCOSE, FASTING 92 MG/DL (70-100); POTASSIUM SERUM 4.4 MEQ/L (3.5-5.1); SODIUM LEVEL 139 MEQ/L (136-145)
[2021-01-31] MEDS ORDERED: MI-A80CH PO (08:10)
[2021-01-31] MEDS ORDERED: DICY1CAP8 PO (08:10)
[2021-01-31] MEDS ORDERED: MIRA1POW3 PO (08:10)
[2021-01-31] MEDS ORDERED: HYDR-3715 PO (08:10)
[2021-01-31] MEDS ORDERED: AUGM875T28 PO (08:10)
--- NOTE | 2021-01-31 08:34 | DS.PDOC ---
Discharge Summary General Date of Admission Dec 30, 2020 at 21:22 Date of Discharge 01/31/2021 Discharge Summary General surgery. Dr. Freed PROCEDURES PERFORMED DURING STAY: PICC line placement 01/05/2021 Status post exploratory laparotomy with drainage of abscess and sigmoid colectomy with end colostomy as per Dr. Freed 01/06/2021. Status post abscess drain placement 01/19/2021. ADMITTING DIAGNOSES: Complicated diverticulitis with mesenteric abscess. Tobacco Use DISCHARGE DIAGNOSES: Diverticulitis with perforation, with mesenteric abscess. Status post exploratory laparotomy with drainage of abscess and sigmoid colectomy with end colostomy as per Dr. Freed 01/06/2021. Retroperitoneal and pelvic abscesses, Status post abscess drain placement 01/19/2021. Slowly resolving with resultant ileus. Tobacco Use HISTORY OF PRESENT ILLNESS: The patient is a 60-year-old male who presented on t he day of admission 12/30/2020 reporting sudden onset of left lower quadrant abdominal pain. He initially presented to [facility] where CT abdomen/pelvis indicated diverticulitis with perforation and fluid collection in the mesentery. He was subsequently transferred to [facility], [place] for surgical consultation. He denied any previous history of diverticulosis. No similar issues in the past. No prior colonoscopy. No significant medical issues. He did not take any medications as an outpatient other than multivitamin. HOSPITAL COURSE: Initially, the patient was treated conservatively, NPO, IV antibiotics and IV fluids with plan for IR drainage. Serial imaging was completed which indicated air-fluid collection in the retroperitoneum. However, on 2 attempts there was no definable area for the drain to be placed and it was felt that abscess was diffusely scattered around the bowel. The patient was taken for exploratory laparotomy, abdominal washout with evacuation of abscess, sigmoid resection and colostomy as per Dr. Freed 01/06/2021. Postoperatively the patient experienced ileus and slow return of bowel function. NG tube was continued, continued n.p.o., the patient was placed on TPN. The patient's surgical wound was noted to have some thick purulent fluid expressible from the wound below the umbilicus, a few of the edda were removed to allow for drain age as per Dr. Hernandes, wound culture was sent. The patient was placed on IV antibiotics. NG tube clamping was trialed, the patient's diet was advanced however the patient developed abdominal distention with persistent partial small bowel obstruction/ileus postoperative day #10 and the patient was made n.p.o. again, NG tube was again placed. The patient was continued on TPN. Wound culture indicated E. coli which was sensitive to IV Zosyn and Levaquin. The patient was reimaged again on 01/18/2021 indicating abscess left retroperitoneum and central mesenteric abscess. The patient underwent abscess drain placement on 01/19/2021. Abscess drain culture indicated E. coli and Proteus both se nsitive to IV Zosyn and Levaquin. The patient was reimaged on 01/24/2021 with pigtail catheter in satisfactory position, this time with 1 abscess measuring 10.8 x 5.6 x 3 point with slight decrease in size of abscess compared with previous imaging. The patient continued to have slow return of bowel function and was still not having significant output from the ostomy, plan was to try some laxatives to see if this would help with output. The patient was tried on some ice chips/sips 01/24 which he tolerated, NG tube was discontinued 01/26. The patient was noted to have a large amount of drainage in the abscess drainage bag on 01/25/2021. The patient was advanced to clear liquids. The patient was placed on a trial of dicyclomine 10 mg 3 times daily, simethicone and MiraLAX 1 packet twice daily. Ambulation was encouraged. The patient seemed to slowly improve, WBC continue to trend downward and had normalized by 01/28/2021. TPN was discontinued 01/28. By 01/31 the patient was continuing to have output from his ostomy. He was tolerating a full liquid diet and the plan was to continue full liquids as outpatient until the patient was having more output from his ostomy. The patient's PICC line was discontinued and the patient was felt stable for discharge with close outpatient follow-up with Dr. Freed. The patient was continued on oral antibiotics at discharge. DISCHARGE MEDICATIONS: Please see below. ALLERGIES: Please see below. PHYSICAL EXAMINATION ON DISCHARGE: VITAL SIGNS: Please see below. GENERAL: Awake and alert, no acute distress HEENT: Sclera anicteric, MMM NECK: Supple CARDIOVASCULAR EXAMINATION: Regular rate rhythm RESPIRATORY EXAMINATION: Respirations easy, no wheezing ABDOMINAL EXAMINATION: softly distended, non tender, incision c/d/i, drain in place in the pelvis with serosanguinous output EXTREMITIES: No edema LABORATORY DATA: Please see below. IMAGING: CT 01/02/21 IMPRESSION: 1. Persistent features of sigmoid diverticulitis complicated by perforation and retroperitoneal abscess extending superiorly, with increased size of the abscess and increased retroperitoneal gas extending into the left perirenal space. 2. Development of a proximal small bowel obstruction with transition point in the right mid abdomen. 3. Small volume free intraperitoneal fluid, likely reactive or inflammatory. 4. Focal thickening of bowel wall of the transverse colon, likely peristalsis although would correlate with age-appropriate colon cancer screening as indicated to exclude an underlying lesion. Electronically signed by: Milton Aguilar On 01/02/2021 08:02:28 AM Abd US IMPRESSION: Ultrasound-guided pelvic abscess drain with catheter placement. <Electronically signed by Kian Morales > 01/19/[address] 01/24/21 IMPRESSION: 1. Abscess in the deep pelvis with pigtail catheter in satisfactory position slightly decreased in size from prior examination. 2. Continued dilated fluid-filled bowel suggesting element of obstruction. No free air to suggest perforation. 3. Nonacute stable findings as above. 4. Mild bibasilar atelectasis. <Electronically signed by Marcelino Joshua > 01/24/21 1025 DISCHARGE PLAN: Discharge home DISCHARGE INSTRUCTIONS: No heavy lifting, pushing, pulling greater than 20 pounds. Continue to keep incision and drain site clean and dry, dry dressing. Monitor output from abscess drain site daily. Monitor output from ostomy daily. Full liquid diet until returns for FU appt. Continue with MiraLAX 1 packet p.o. twice daily. Continue with Bentyl 10 mg p.o. 3 times daily Continue with Mylicon 120 mg p.o. 4 times daily. Proctor 1 tablet p.o. every 6 hours as needed for pain. Augmentin 875 mg p.o. twice daily for 10 days. Follow-up with Dr. Freed 02/10/2021 Follow-up with PCP. ITEMS TO FOLLOWUP ON ON OUTPATIENT: Abscess drain in place. The patient will monitor output and bring record to his follow-up appointment with Dr. Freed 02/10/2021. DISCHARGE CONDITION: Stable. TIME SPENT ON DISCHARGE: Greater than 30 minutes. Vital Signs/I&Os Vital Signs Date Time Temp Pulse Resp B/P (MAP) Pulse Ox O2 Delivery O2 Flow Rate FiO2 01/31/21 06:00 98.4 78 16 119/84 (96) 96 Room Air I&O- Last 24 Hours up to 6 AM 01/31/21 06:00 Intake Total 2615 ml Output Total 4025 ml Balance -1410 ml Laboratory Data Labs 24H Laboratory Tests 2 01/30/21 12:01: Bedside Glucose (Misc Panel) 92 01/30/21 17:09: Bedside Glucose (Misc Panel) 80 01/31/21 07:01: Nucleated Red Blood Cells % (auto) 0.0, Anion Gap 6L, Glomerular Filtration Rate > 60.0, Calcium Level 9.1 CBC/BMP Laboratory Tests 01/31/21 07:01 FSBS Laboratory Tests Test 01/30/21 12:01 01/30/21 17:09 Range/Units Bedside Glucose (Misc Panel) 92 80 70-105 MG/DL Discharge Medications Scheduled Amoxicillin/Potassium Clav (Augmentin 875-125 Tablet) 1 Each Tablet, 1 TAB PO BID Dicyclomine HCl (Dicyclomine HCl) 10 Mg Capsule, 10 MG PO TID Multivitamins (Thera M Plus Tablet) 1 Each Tablet, 1 TAB PO QHS, (Reported) Polyethylene Glycol 3350 (Miralax) 17 Gm Powd.pack, 1 PKT PO BID Simethicone (Mi-Acid) 80 Mg Tab.chew, 2 TAB PO QID Scheduled PRN Hydrocodone/Acetaminophen (Hydrocodone-Acetamin 5-325 mg) 1 Each Tablet, 1 TAB PO Q6H PRN for SEVERE PAIN (PS 8-10) Allergies Coded Allergies: No Known Allergies (Verified Allergy, Unknown, 12/30/20) Matilde Trivedi Jan 31, 2021 08:34
[2021-01-31] MEDS: DICYCLOMINE 10 MG CAP PO SCH (09:00)
[2021-01-31] MEDS: SIMETHICONE 80MG CHEW TAB PO SCH ×2 (09:37→13:10)
[2021-01-31] MEDS: NICOTINE 14 MG/24 HR TRANSDERMAL TD SCH (09:43)
[2021-01-31] MEDS: MIRALAX *UNIT DOSE* 17GM PACKET PO SCH (09:43)
[2021-01-31] MEDS: NORCO, ANEXSIA 5/325MG TABLET (HYDROcodone/ACETAMINOPHEN) PO PRN (09:54)
[2021-01-31] MEDS: ENOXAPARIN 40MG/0.4ML SYRINGE (J1650 PER 10MG) SC SCH (09:55)
== END 2021-01-31 13:23 | disposition home health service (06) | DRG 329 ==
LOC: M MSPAV 21:22 → M PCU 01-02 11:50 → M MSPAV 01-03 11:17
PROVIDERS: ADMIT General Practice; ATTEND Surgery
PROC: 02HV33Z Insertion of Infusion Device into Superior Vena Cava, Percutaneous Approach (ICD-10-PCS; 2021-01-05)
PROC: 0D1N0Z4 Bypass Sigmoid Colon to Cutaneous, Open Approach (ICD-10-PCS; 2021-01-06)
PROC: 0DTN0ZZ Resection of Sigmoid Colon, Open Approach (ICD-10-PCS; principal; 2021-01-06 10:00)
PROC: 02HV33Z Insertion of Infusion Device into Superior Vena Cava, Percutaneous Approach (ICD-10-PCS; 2021-01-10)
PROC: 0W9J30Z Drainage of Pelvic Cavity with Drainage Device, Percutaneous Approach (ICD-10-PCS; 2021-01-19)
DX: K57.20 Diverticulitis of large intestine with perforation and abscess without bleeding (principal); K68.19 Other retroperitoneal abscess; K56.600 Partial intestinal obstruction, unspecified as to cause; E87.1 Hypo-osmolality and hyponatremia; F17.200 Nicotine dependence, unspecified, uncomplicated; F10.10 Alcohol abuse, uncomplicated; D64.9 Anemia, unspecified; E87.6 Hypokalemia; B96.29 Other Escherichia coli [E. coli] as the cause of diseases classified elsewhere

== ENCOUNTER → 2021-02-17 | Outpatient (CLI) | payer OTHER ==
[~2021-02-17] MED LIST: AUGM875T28 PO; DICY1CAP8 PO; HYDR-3715 PO; ISOVUE-370 76% 100ML VIAL As Ordered ONE; MI-A80CH PO; MIRA1POW3 PO; VITMTA PO
--- NOTE | 2021-02-24 07:52 | REP ---
INDICATION: DIVERTIC W/ABSCESS. COMPARISON: 01/24/2021 TECHNIQUE: Axial precontrast, contrast-enhanced and delayed images from the lung bases to the pubic symphysis using 100 cc Isovue 370 intravenous contrast material. Coronal and sagittal reformations obtained. This CT examination was performed using the following dose reduction techniques: Automated exposure control, adjustment of mA and/or kv according to the patient's size, and the use of iterative reconstruction technique. FINDINGS: The pigtail catheter via an anterior pelvic approach is identified in stable position and the previously noted abscess cavity within the pelvis appears to be a centrally completely resolved although evaluation is somewhat limited due to difficulty in differentiation between surrounding loops of small bowel. The small and large bowel demonstrates obvious improvement from prior examination and the previously noted small-bowel obstruction has essentially resolved. However, mildly prominent loops of both small and large bowel throughout the abdomen and pelvis raise the possibility of an ongoing element of enterocolitis. Patient is noted to be status post partial left hemicolectomy with ostomy via the left anterior abdominal wall which appears relatively normal. 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 No free air or significant ascites is identified by current examination. Liver again demonstrates mild hepatomegaly and few small benign hepatic cysts without significant hepatic pathology identified. Spleen, pancreas, gallbladder, bilateral adrenal glands and kidneys are stable and essentially normal. Few small benign renal cysts are again identified bilaterally and measure up to approximately 1.6 cm in the left kidney. Pelvis demonstrates relatively normal bladder and age-appropriate prostate/seminal vesicles. No ascites. No free air. No obvious significant adenopathy. Abdominal aorta and vasculature appear normal. Musculoskeletal structures demonstrate stable degenerative changes. IMPRESSION: 1. Previously noted pelvic abscess appears essentially completely resolved. Findings should be correlated with output from the pigtail drainage catheter. 2. Previously noted elements of bowel obstruction appear significantly improved/resolved although a mild continued underlying enterocolitis cannot be excluded. 3. Nonacute findings as described above. <Electronically signed by Marcelino Joshua > 02/24/21 0798
== END ==
LOC: M RAD 15:20
PROVIDERS: ATTEND Surgery
DX: K57.20 Diverticulitis of large intestine with perforation and abscess without bleeding (principal)
CPT/HCPCS: 74178; Q9967

== ENCOUNTER → 2021-07-01 | Outpatient (CLI) | payer OTHER ==
[~2021-07-01] MED LIST changes: -ISOVUE-370 76% 100ML VIAL As Ordered ONE
== END ==
LOC: M LABSMTC 10:42
PROVIDERS: ATTEND Anesthesiology
DX: Z01.812 Encounter for preprocedural laboratory examination (principal); Z20.822 Contact with and (suspected) exposure to COVID-19

== ENCOUNTER 2021-07-06 08:03 | Day surgery (SDC) | payer OTHER ==
[~2021-07-06] VITALS: Ht 175.3 cm; Wt 68.0 kg
[~2021-07-06 08:03] MED LIST changes: +NS 1,000 ML IV ONE
[2021-07-06] MEDS ORDERED: propofoL 200 MG/20 ML VIAL As Ordered ONE ×2 (09:08→09:13)
[2021-07-06 09:40] VITALS: BP 163/96
== END 2021-07-06 09:50 | disposition home or self-care (01) ==
LOC: M OPP 08:03
PROVIDERS: ATTEND Surgery
DX: K64.0 First degree hemorrhoids (principal); Z93.3 Colostomy status; Z87.19 Personal history of other diseases of the digestive system; Z79.899 Other long term (current) drug therapy; F17.210 Nicotine dependence, cigarettes, uncomplicated

== ENCOUNTER → 2021-09-20 | Outpatient (REF) | payer OTHER ==
[~2021-09-20] MED LIST changes: +ECOT81TA5 PO; -NS 1,000 ML IV ONE
== END ==
LOC: M SFHCCLAY 06:29
PROVIDERS: ATTEND Family Medicine
DX: Z53.9 Procedure and treatment not carried out, unspecified reason (principal)

== ENCOUNTER → 2021-09-25 | Outpatient (CLI) | payer OTHER | LOC: M LABSMTC 09:28 | PROVIDERS: ATTEND Surgery | DX: Z01.812 Encounter for preprocedural laboratory examination (principal); Z20.822 Contact with and (suspected) exposure to COVID-19 ==

== ENCOUNTER 2021-09-30 05:59 | Inpatient (IN) | payer OTHER ==
[~2021-09-30] VITALS: Ht 175.3 cm; Wt 67.0 kg
[2021-09-30] VITALS (8 sets, daily range): BP systolic 97–134; BP diastolic 58–85
[2021-09-30] MEDS ORDERED: LR 1,000 ML IV SCH ×2 (06:35→11:55)
[2021-09-30] MEDS ORDERED: ASPI-1 PO (06:39)
[2021-09-30] MEDS ORDERED: METR-265 PO (06:39)
[2021-09-30] MEDS ORDERED: BUPIVACAINE/EPIN 0.25% 30 ML VIAL As Ordered ONE (07:11)
[2021-09-30] MEDS: ERTAPENEM SODIUM 1 GM in NS MINI-BAG PLUS 50 ML IV ONE ×2 (07:30→07:45)
[2021-09-30] MEDS ORDERED: ROCURONIUM BROMIDE 50 MG/5 ML VIAL As Ordered ONE ×3 (08:08→10:55)
[2021-09-30] MEDS ORDERED: ONDANSETRON 4MG 2ML VIAL As Ordered ONE (08:08)
[2021-09-30] MEDS ORDERED: dexameTHASONE 4 MG/ML 1ML VIAL (J1100 PER 1MG) As Ordered ONE (08:08)
[2021-09-30] MEDS ORDERED: MIDAZOLAM INJ 2MG/2ML VIAL (J2250 PER 1MG) As Ordered ONE (08:08)
[2021-09-30] MEDS ORDERED: LIDOCAINE 2% 100MG/5ML SDV (FOR ANES.) As Ordered ONE (08:08)
[2021-09-30] MEDS ORDERED: fentaNYL 250 MCG/5 ML INJECTION As Ordered ONE (08:08)
[2021-09-30] MEDS ORDERED: propofoL 200 MG/20 ML VIAL As Ordered ONE (08:08)
[2021-09-30] MEDS ORDERED: SUGAMMADEX SODIUM 500 MG/5 ML VIAL (BRIDION) As Ordered ONE (08:10)
[2021-09-30] MEDS ORDERED: ACETAMINOPHEN 1000MG 100ML IV BTL (OFIRMEV) (J0131 PER 10MG) As Ordered ONE (10:56)
[2021-09-30] MEDS ORDERED: KETOROLAC 60MG 2ML VIAL As Ordered ONE (11:26)
[2021-09-30] MEDS ORDERED: HYDROmorphone HCL 2MG/ML 1ML VIAL As Ordered ONE (11:31)
[2021-09-30] MEDS ORDERED: METOCLOPRAMIDE INJ 10MG/2ML VIAL (J2765 PER 1) IV PRN (11:55)
[2021-09-30] MEDS ORDERED: HYDROMORPHONE HCL 0.5 MG/ 0.5 ML SYRINGE (J1170 PER 1) IV PRN (11:55)
[2021-09-30] MEDS ORDERED: fentaNYL 100 MCG/2 ML INJECTION IV PRN (11:55)
[2021-09-30] MEDS ORDERED: MEPERIDINE INJ 25 MG/ML VIAL (J2175) IV PRN (11:55)
[2021-09-30] MEDS ORDERED: ONDANSETRON 4MG 2ML VIAL IV PRN ×2 (11:55→12:20)
[2021-09-30] MEDS ORDERED: PERCOCET 5MG/325MG TAB PO PRN (11:55)
[2021-09-30] MEDS ORDERED: ACETAMINOPHEN TAB 650MG DOSE (2X325MG) PO PRN (12:20)
[2021-09-30] MEDS ORDERED: MORPHINE 4 MG/ML 1ML VIAL/SYRINGE IV PRN (12:20)
[2021-09-30] MEDS ORDERED: NORCO, ANEXSIA 5/325MG TABLET (HYDROcodone/ACETAMINOPHEN) PO PRN (12:20)
[2021-09-30] MEDS: NS 1,000 ML IV SCH ×2 (14:20→23:46)
[2021-09-30] MEDS: KETOROLAC 30 MG/ML 1ML VIAL IV PRN ×2 (14:26→21:18)
[2021-09-30] MEDS: PIPERACILLIN/TAZOBACTAM SOD 3.375 GM in D5W MINI-BAG PLUS 50 ML IV SCH ×2 (17:04→21:19)
[2021-09-30] MEDS: NORCO, ANEXSIA 5/325MG TABLET (HYDROcodone/ACETAMINOPHEN) PO PRN (17:05)
[2021-09-30] MEDS: NICOTINE 14 MG/24 HR TRANSDERMAL TD SCH (17:05)
[2021-09-30] MEDS: NICOTINE POLACRILEX 2 MG GUM PO PRN ×2 (18:17→21:19)
[2021-09-30] MEDS: SENOKOT S TAB PO SCH ×2 (21:00→21:19)
[2021-10-01 01:54] VITALS: BP 123/77
[2021-10-01] MEDS: PIPERACILLIN/TAZOBACTAM SOD 3.375 GM in D5W MINI-BAG PLUS 50 ML IV SCH ×2 (03:51→09:51)
[2021-10-01] MEDS: NORCO, ANEXSIA 5/325MG TABLET (HYDROcodone/ACETAMINOPHEN) PO PRN ×2 (03:52→17:19)
[2021-10-01] MEDS: NICOTINE POLACRILEX 2 MG GUM PO PRN ×4 (04:04→21:39)
[2021-10-01] MEDS: NS 1,000 ML IV SCH (05:59)
[2021-10-01 06:28] LABS: HEMATOCRIT 37.9 % (42.0-52.0); HEMOGLOBIN 12.4 g/dl (13.5-17.5); MEAN CORPUSCULAR HEMOGLOBIN 33.5 pg (27.0-33.0); MEAN CORPUSCULAR HGB CONC 32.7 g/dl (32.0-36.5); MEAN CORPUSCULAR VOLUME 102.4 fl (80.0-96.0); PLATELET COUNT, AUTOMATED 135 10^3/uL (150-450); WHITE BLOOD COUNT 6.3 10^3/uL (4.0-10.0)
[2021-10-01 06:36] VITALS: BP 144/84
[2021-10-01 07:10] LABS: BLOOD UREA NITROGEN 6 MG/DL (7-18); CALCIUM LEVEL 8.2 MG/DL (8.5-10.1); CARBON DIOXIDE LEVEL 29 MEQ/L (21-32); CHLORIDE LEVEL 105 MEQ/L (98-107); CREATININE FOR GFR 0.83 MG/DL (0.70-1.30); GLOMERULAR FILTRATION RATE > 60.0 (>56); GLUCOSE, FASTING 109 MG/DL (70-100); POTASSIUM SERUM 4.2 MEQ/L (3.5-5.1); SODIUM LEVEL 138 MEQ/L (136-145)
[2021-10-01] MEDS: PANTOPRAZOLE 40MG TAB (PROTONIX) PO SCH (09:32)
[2021-10-01] MEDS: SENOKOT S TAB PO SCH ×2 (09:32→19:48)
[2021-10-01] MEDS: NICOTINE 14 MG/24 HR TRANSDERMAL TD SCH (09:33)
[2021-10-01] MEDS: ENOXAPARIN 40MG/0.4ML SYRINGE (J1650 PER 10MG) SC SCH (09:33)
[2021-10-01] MEDS: KETOROLAC 30 MG/ML 1ML VIAL IV PRN (09:50)
[2021-10-01 10:00] VITALS: BP 149/86
[2021-10-01 14:00] VITALS: BP 126/70
[2021-10-01 18:00] VITALS: BP 140/84
[2021-10-01 21:27] VITALS: BP 134/81
[2021-10-02] MEDS: NORCO, ANEXSIA 5/325MG TABLET (HYDROcodone/ACETAMINOPHEN) PO PRN ×3 (00:09→21:04)
[2021-10-02 05:57] VITALS: BP 138/74
[2021-10-02] MEDS: NICOTINE 14 MG/24 HR TRANSDERMAL TD SCH (08:44)
[2021-10-02] MEDS: PANTOPRAZOLE 40MG TAB (PROTONIX) PO SCH (08:45)
[2021-10-02] MEDS: ENOXAPARIN 40MG/0.4ML SYRINGE (J1650 PER 10MG) SC SCH (08:45)
[2021-10-02] MEDS: SENOKOT S TAB PO SCH ×2 (08:45→20:04)
[2021-10-02] MEDS: NICOTINE POLACRILEX 2 MG GUM PO PRN ×2 (10:27→17:45)
[2021-10-02 14:00] VITALS: BP 167/98
[2021-10-02 20:53] VITALS: BP 137/86
[2021-10-03 05:36] VITALS: BP 148/86
[2021-10-03 06:51] LABS: HEMATOCRIT 41.3 % (42.0-52.0); MEAN CORPUSCULAR HEMOGLOBIN 33.9 pg (27.0-33.0); MEAN CORPUSCULAR HGB CONC 33.9 g/dl (32.0-36.5); PLATELET COUNT, AUTOMATED 216 10^3/uL (150-450); RED BLOOD COUNT 4.13 10^6/uL (4.30-6.10); WHITE BLOOD COUNT 6.1 10^3/uL (4.0-10.0)
[2021-10-03 07:18] LABS: BLOOD UREA NITROGEN 5 MG/DL (7-18); CALCIUM LEVEL 9.1 MG/DL (8.5-10.1); CARBON DIOXIDE LEVEL 30 MEQ/L (21-32); CHLORIDE LEVEL 104 MEQ/L (98-107); CREATININE FOR GFR 0.72 MG/DL (0.70-1.30); GLOMERULAR FILTRATION RATE > 60.0 (>56); GLUCOSE, FASTING 106 MG/DL (70-100); POTASSIUM SERUM 3.8 MEQ/L (3.5-5.1); SODIUM LEVEL 139 MEQ/L (136-145)
[2021-10-03] MEDS: SENOKOT S TAB PO SCH (08:41)
[2021-10-03] MEDS: PANTOPRAZOLE 40MG TAB (PROTONIX) PO SCH (08:50)
[2021-10-03] MEDS: NICOTINE 14 MG/24 HR TRANSDERMAL TD SCH (08:50)
[2021-10-03] MEDS: ENOXAPARIN 40MG/0.4ML SYRINGE (J1650 PER 10MG) SC SCH (08:51)
[2021-10-03 08:54] VITALS: BP 132/92
[2021-10-03] MEDS: NICOTINE POLACRILEX 2 MG GUM PO PRN (09:09)
[2021-10-03] MEDS: NORCO, ANEXSIA 5/325MG TABLET (HYDROcodone/ACETAMINOPHEN) PO PRN (09:10)
[2021-10-03] MEDS ORDERED: HYDR-3715 PO (10:07)
== END 2021-10-03 11:11 | disposition home or self-care (01) | DRG 330 ==
LOC: M OR 05:59 → M MSPAV 13:33
PROVIDERS: ADMIT Surgery; ATTEND Surgery
PROC: 0DNM4ZZ Release Descending Colon, Percutaneous Endoscopic Approach (ICD-10-PCS; 2021-09-30)
PROC: 8E0W4CZ Robotic Assisted Procedure of Trunk Region, Percutaneous Endoscopic Approach (ICD-10-PCS; 2021-09-30)
PROC: 0DBG4ZZ Excision of Left Large Intestine, Percutaneous Endoscopic Approach (ICD-10-PCS; principal; 2021-09-30 07:30)
DX: Z43.3 Encounter for attention to colostomy (principal); K57.92 Diverticulitis of intestine, part unspecified, without perforation or abscess without bleeding

== ENCOUNTER → 2023-05-24 | Outpatient (REF) | payer OTHER ==
[~2023-05-24] MED LIST changes: +ASPI-1 PO; +METR-265 PO; -MIRA1POW3 PO; +MIRA33506 PO
[2023-05-24 19:05] LABS: BASO # 0.1 10^3/uL (0.0-0.2); BASO % 0.6 % (0.0-1.0); EOS # 0.1 10^3/uL (0.0-0.5); EOS % 0.5 % (0.0-3.0); HEMATOCRIT 45.2 % (42.0-52.0); HEMOGLOBIN 15.6 g/dl (13.5-17.5); LYMPH # 1.4 10^3/uL (1.5-5.0); LYMPH % 14.2 % (24.0-44.0); MEAN CORPUSCULAR HEMOGLOBIN 34.1 pg (27.0-33.0); MEAN CORPUSCULAR HGB CONC 34.5 g/dl (32.0-36.5); MEAN CORPUSCULAR VOLUME 98.9 fl (80.0-96.0); MONO % 9.7 % (2.0-8.0); NEUTROPHILS # 7.6 10^3/uL (1.5-8.5); NEUTROPHILS % 74.7 % (36.0-66.0); PLATELET COUNT, AUTOMATED 128 10^3/uL (150-450); RED BLOOD COUNT 4.57 10^6/uL (4.30-6.10); WHITE BLOOD COUNT 10.1 10^3/uL (4.0-10.0)
[2023-05-24 19:32] LABS: ALBUMIN 4.1 G/DL (3.2-5.2); ALKALINE PHOSPHATASE 151 U/L (46-116); ALT/SGPT 89 U/L (7.0-40); AST/SGOT 176 U/L (<34); BLOOD UREA NITROGEN 14 MG/DL (9-23); CARBON DIOXIDE LEVEL 35 MMOL/L (20-31); CHLORIDE LEVEL 93 MMOL/L (98-107); CREATININE FOR GFR 0.77 MG/DL (0.70-1.30); GLOMERULAR FILTRATION RATE > 60.0 (>49); GLUCOSE, FASTING 130 MG/DL (74-106); POTASSIUM SERUM 4.4 MMOL/L (3.5-5.1); SODIUM LEVEL 132 MMOL/L (136-145)
[2023-05-24 19:34] LABS: THYROID STIMULATING HORMONE 0.952 uIU/ML (0.55-4.78)
[2023-05-25 13:24] LABS: PTH INTACT 30.8 PG/ML (18.5-88.0)
[2023-05-25 13:48] LABS: HEPATITIS B SURFACE ANTIBODY NEGATIVE (POSITIVE)
[2023-05-25 14:21] LABS: HEPATITIS C VIRUS ABY INDEX < 0.02 INDEX (<0.8)
== END ==
LOC: M SFHCCLAY 09:41
PROVIDERS: ATTEND Family Medicine
DX: K52.9 Noninfective gastroenteritis and colitis, unspecified (principal); I10 Essential (primary) hypertension; R00.0 Tachycardia, unspecified; E83.52 Hypercalcemia; R74.01 Elevation of levels of liver transaminase levels

== ENCOUNTER → 2023-06-15 | Outpatient (REF) | payer OTHER ==
[2023-06-15 17:53] LABS: APPEARANCE, URINE CLEAR (CLEAR); BACTERIA, URINE AUTO NEGATIVE (NEGATIVE); BILIRUBIN, URINE AUTO NEGATIVE (NEGATIVE); BLOOD, URINE BLOOD NEGATIVE (NEGATIVE); COLOR, URINE YELLOW (YELLOW); GLUCOSE, URINE (UA) AUTO NEGATIVE (NEGATIVE); KETONE, URINE AUTO NEGATIVE (NEGATIVE); LEUKOCYTE ESTERASE, URINE AUTO NEGATIVE (NEGATIVE); NITRITE, URINE AUTO NEGATIVE (NEGATIVE); PROTEIN, URINE AUTO NEGATIVE (NEGATIVE); RBC, URINE AUTO 1 /HPF (0-3); SPECIFIC GRAVITY URINE AUTO 1.013 (1.002-1.035); SQUAMOUS EPITHELIAL CELL UR AU 0 /HPF (0-6); WBC, URINE AUTO 1 /HPF (0-3)
== END ==
LOC: M SFHCCLAY 11:36
PROVIDERS: ATTEND Family Medicine
DX: R35.1 Nocturia (principal); Z12.5 Encounter for screening for malignant neoplasm of prostate
CPT/HCPCS: 81001; G0103